=== PATIENT | female | born 1940 | race Caucasian/White ===

== ENCOUNTER 2017-08-11 10:53 | Outpatient (CLI) | payer MEDICARE, OTHER | END 2017-08-11 10:54 | disposition critical access hospital (66) | LOC: EMS 10:53 | PROVIDERS: ATTEND Surgery | DX: K62.5 Hemorrhage of anus and rectum (principal); R53.1 Weakness | CPT/HCPCS: A0425; A0427 ==

== ENCOUNTER 2017-08-11 11:08 | Emergency (ER) | payer MEDICARE, OTHER ==
[2017-08-11] MEDS ORDERED: SODIUM CHLORIDE 0.9% 1,000 ML IV ONE (11:18)
[2017-08-11] MEDS ORDERED: PANTOPRAZOLE 40 MG VIAL IVP STA (11:18)
[2017-08-11 11:48] LABS: BASOPHILS % (AUTO) 0.2 %; EOSINOPHILS % (AUTO) 0.1 %; LYMPHOCYTES # (AUTO) 0.7 10^3/uL (1.5-3.5); LYMPHOCYTES % (AUTO) 9.2 %; MEAN CORPUSCULAR HEMOGLOBIN 15.8 pg (27.0-31.0); MEAN CORPUSCULAR VOLUME 58.5 fL (81.0-99.0); MEAN PLATELET VOLUME 7.2 fL (7.9-10.8); MONOCYTES # (AUTO) 0.6 10^3/uL (0.0-1.0); MONOCYTES % (AUTO) 7.4 %; NEUTROPHILS # (AUTO) 6.5 10^3/uL (1.5-6.6); NEUTROPHILS % (AUTO) 83.1 %; PLT - PLATELET COUNT 548 10^3/uL (130-450); RED BLOOD COUNT 2.11 10^6/uL (4.20-5.40); RED CELL DISTRIBUTION WIDTH 18.4 % (12.0-15.0); WHITE BLOOD COUNT 7.9 x10^3/uL (4.8-10.8)
[2017-08-11 11:56] LABS: ALBUMIN 2.6 g/dL (3.2-5.5); ALBUMIN/GLOBULIN RATIO 0.9 (1.0-2.2); BILIRUBIN,TOTAL 0.7 mg/dL (0.2-1.0); CALCIUM 7.6 mg/dL (8.5-10.3); INR 1.4 (0.8-1.2); PT - PROTHROMBIN TIME 15.5 secs (9.9-12.6); TOTAL PROTEIN 5.6 g/dL (6.7-8.2)
[2017-08-11 11:58] LABS: HGB - HEMOGLOBIN 3.3 g/dL (12.0-16.0)
--- NOTE | 2017-08-11 12:09 | ED Physician Documentation ---
PD HPI GI BLEED - Stated complaint Stated Complaint: SOA/ GI BLEED - Chief complaint Chief Complaint: Abd Pain - History obtained from History obtained from: Patient, Family, EMS - History of Present Illness Timing - onset: How many days ago (3) Timing - duration: Days (3) Timing - details: Gradual onset, Still present Associated symptoms: Maroon stool Contributing factors: Aspirin use Improved by: Other (nothing) Similar symptoms before: Diagnosis (hemmorrhoids) Recently seen: Not recently seen - Additional information Additional information: 77-year-old female who avoids medical care at all times has developed Rectal bleeding. This bleeding has been present for about 3 years. She has had a mass in her rectum that has been bleeding and she has called this her hemorrhoids. She indicates that she has not been able to sit in a chair for about 4 years and that her family indicates she does not leave the house. She has not sought medical attention. She took some baby aspirin over the last 3 days and bleeding has dramatically increased. Last night she collapsed in her home and this morning her daughter has called the ambulance. Review of Systems Constitutional: reports: Fatigue. denies: Fever Eyes: denies: Decreased vision Ears: denies: Ear pain Nose: denies: Congestion Throat: denies: Sore throat Cardiac: denies: Chest pain / pressure, Palpitations Respiratory: reports: Dyspnea (exertional and progressive) GI: reports: Bloody / black stool. denies: Abdominal Pain, Nausea, Vomiting : denies: Dysuria, Frequency Skin: denies: Rash Musculoskeletal: denies: Neck pain, Back pain, Extremity swelling Neurologic: reports: Generalized weakness. denies: Focal weakness, Numbness PD PAST MEDICAL HISTORY - Past Medical History Past Medical History: Yes GI: Hemorrhoids Other Past Medical History: shingles with ongoing nerve left side under breast going around to back. - Past Surgical History Past Surgical History: No - Present Medications Home Medications: Ambulatory Orders Medication Instructions Recorded Confirmed No Known Home Medications [No 08/11/17 08/11/17 Known Home Medications] - Allergies Allergies/Adverse Reactions: Allergies Allergy/AdvReac Type Severity Reaction Status Date / Time No Known Drug Allergies Allergy Verified 08/11/17 11:18 - Social History Does the pt smoke?: No Smoking Status: Never smoker PD ED PE NORMAL - Vitals Vital signs reviewed: Yes (tachy and hypotensive) - General General: Well developed/nourished, Other (pale 77 y/o female with her eyes closed does answer questions appropriately ) - HEENT HEENT: Atraumatic, PERRL, EOMI, Other (pale sclera) - Neck Neck: Supple, no meningeal sign, No bony TTP - Cardiac Cardiac: Other (tachy with a loud second sound. ) - Respiratory Respiratory: No respiratory distress, Clear bilaterally - Abdomen Abdomen: Soft, Non tender - Rectal Rectal: Other (There is a large fungating bleeding mass protruding from the rectum. ) - Back Back: No CVA TTP, No spinal TTP - Derm Derm: Warm and dry, No rash, Other (pale ) - Extremities Extremities: No deformity, No edema - Neuro Neuro: Alert and oriented X 3, grab hooker 2-12 intact, No motor deficit, No sensory deficit, Normal speech Eye Opening: Spontaneous Motor: Obeys Commands Verbal: Oriented GCS Score: 15 - Psych Psych: Normal mood, Normal affect Results - Vitals Vitals: Vital Signs - 24 hr 08/11/17 08/11/17 08/11/17 11:10 11:34 12:06 Temperature 36.6 C Heart Rate 103 H 97 96 Respiratory 16 21 19 Rate Blood Pressure 111/53 L 105/49 L 108/51 L O2 Saturation 100 100 99 08/11/17 08/11/17 08/11/17 13:15 13:56 14:02 Temperature 36.9 C 37.0 C Heart Rate 92 101 H 97 Respiratory 16 20 18 Rate Blood Pressure 103/68 98/67 104/49 L O2 Saturation 100 08/11/17 08/11/17 08/11/17 16:09 16:23 16:34 Temperature 37.1 C 37.2 C Heart Rate 86 91 90 Respiratory 19 20 18 Rate Blood Pressure 113/52 L 115/75 113/56 L O2 Saturation 100 08/11/17 16:35 Temperature 37.3 C Heart Rate 90 Respiratory 16 Rate Blood Pressure 113/56 L O2 Saturation Oxygen O2 Source Nasal cannula - EKG (time done) 1113 Rate: Rate (enter#) (103) Rhythm: Sinus tachycardia Intervals: Prolonged QT Ischemia: ST depression Compare to prior EKG: Old EKG unavailable Computer interpretation: Agree with computer - Labs Labs: Laboratory Tests 08/11/17 08/11/17 08/11/17 11:32 11:32 11:32 WBC 7.9 RBC 2.11 L Hgb 3.3 L* Hct 12.3 L* MCV 58.5 L MCH 15.8 L MCHC 27.0 L RDW 18.4 H Plt Count 548 H MPV 7.2 L Neut # 6.5 Lymph # 0.7 L Colquitt # 0.6 Eos # 0.0 Baso # 0.0 Absolute Nucleated RBC 0.37 Nucleated RBC % 4.6 Manual Slide Review Indicated WBC Morphology Platelet Estimate INCREASED (>450,000) Platelet Morphology NORMAL APPEARANCE RBC Morph Micro Appear 2+ OVALOCYTES PT 15.5 H INR 1.4 H APTT 25.5 Sodium 138 Potassium 3.9 Chloride 109 Carbon Dioxide 14 L Anion Gap 15.0 H BUN 26 H Creatinine 1.0 Estimated GFR (MDRD) 53 L Glucose 134 H Calcium 7.6 L Total Bilirubin 0.7 AST 41 ALT 20 Alkaline Phosphatase 49 Troponin I Total Protein 5.6 L Albumin 2.6 L Globulin 3.0 Albumin/Globulin Ratio 0.9 L Lipase 20 L Slides for Path Review Indicated Blood Type Blood Type Recheck Antibody Screen Crossmatch IS Only 08/11/17 08/11/17 08/11/17 11:32 11:32 11:56 WBC RBC Hgb Hct MCV MCH MCHC RDW Plt Count MPV Neut # Lymph # Colquitt # Eos # Baso # Absolute Nucleated RBC Nucleated RBC % Manual Slide Review WBC Morphology Platelet Estimate Platelet Morphology RBC Morph Micro Appear PT INR APTT Sodium Potassium Chloride Carbon Dioxide Anion Gap BUN Creatinine Estimated GFR (MDRD) Glucose Calcium Total Bilirubin AST ALT Alkaline Phosphatase Troponin I 2.97 H* Total Protein Albumin Globulin Albumin/Globulin Ratio Lipase Slides for Path Review Blood Type O POSITIVE Blood Type Recheck O POSITIVE Antibody Screen NEGATIVE Crossmatch IS Only See Detail Procedures - IVC sono (time) 1620 Bedside IVC sono: IVC measures (cm) (2.40), IVC collapsed c insp (cm) (2.14), Collapsibility index (0.108), High CVP, Fluid overload PD MEDICAL DECISION MAKING - ED course Complexity details: reviewed old records, reviewed results, re-evaluated patient , considered differential, d/w patient, d/w family ED course: 77-year-old female with acute on chronic blood loss appears to have a profoundly low globin and hematocrit. She is tachycardic and pale appearing and has some acute blood loss.2 intravenous lines are begun she is given IV Protonix and 4 units of blood are ordered. She does appear to have a rectal carcinoma on examination and I have consulted our surgeon Dr. 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 He recommends transfer to Hospital where this could be achieved. The patient also has elevated troponin consistent with NSTEMI. The hospitalist at [facility] is consulted and graciously agrees to care for this patient in the hospital and requests we transfuse prior to transport. She is given her first unit of blood here and her color improves and she "perks up". Her IVC is interrogated and is plethoric and a bolton is placed and she is given a dose of IV lasix. I she will be hemodynamically stable for transport and we will transport with the second unit running. Departure - Departure Disposition: 02 Transfer Acute Care Hosp Clinical Impression: Non-STEMI (non-ST elevated myocardial infarction), Rectal carcinoma GI bleeding Qualifiers: GI bleed type/associated pathology: anorectal hemorrhage Qualified Code(s): K62.5 - Hemorrhage of anus and rectum Profound anemia Qualifiers: Anemia type: iron deficiency Iron deficiency anemia type: chronic blood loss Qualified Code(s): D50.0 - Iron deficiency anemia secondary to blood loss ( chronic) Condition: Serious
[2017-08-11 12:17] LABS: PLATELET ESTIMATE, MANUAL INCREASED (>450,000) (NORMAL); PLATELET MORPHOLOGY NORMAL APPEARANCE (NORMAL)
[2017-08-11] MEDS ORDERED: FUROSEMIDE 20 MG/2 ML VIAL IVP STA (16:23)
[2017-08-11 16:51] VITALS: BP 117/62
[2017-08-11 17:22] LABS: CLARITY,URINE CLEAR (CLEAR); LEUKOCYTE ESTERASE, URINE NEGATIVE (NEGATIVE); NITRITE,URINE NEGATIVE (NEGATIVE); UROBILINOGEN,URINE 0.2 (NORMAL) E.U./dL (NORMAL)
[2017-08-11 17:23] LABS: BILIRUBIN,URINE NEGATIVE (NEGATIVE); GLUCOSE, URINE (UA) NEGATIVE (NEGATIVE); KETONES,URINE (UA) NEGATIVE (NEGATIVE); OCCULT BLOOD,URINE NEGATIVE (NEGATIVE); PROTEIN,URINE NEGATIVE (NEGATIVE)
== END 2017-08-11 16:54 | disposition short-term general hospital (02) ==
LOC: ED 11:08
DX: I21.4 Non-ST elevation (NSTEMI) myocardial infarction (principal); C20 Malignant neoplasm of rectum; K62.5 Hemorrhage of anus and rectum; D50.0 Iron deficiency anemia secondary to blood loss (chronic)
CPT/HCPCS: 36415; 36430; 51702; 80053; 81003; 83690; 84484; 85025; 85610; 85730; 86850; 86900; 86901; 86920; 93005; 96361; 96374; 96375; 99284; 99285; P9016; 81001; 87086

== ENCOUNTER 2017-08-11 16:57 | Outpatient (CLI) | payer MEDICARE, OTHER | END 2017-08-11 16:58 | disposition short-term general hospital (02) | LOC: EMS 16:57 | PROVIDERS: ATTEND Surgery | DX: K62.5 Hemorrhage of anus and rectum (principal); D64.9 Anemia, unspecified; I21.4 Non-ST elevation (NSTEMI) myocardial infarction | CPT/HCPCS: A0425; A0426 ==

== ENCOUNTER 2017-08-24 11:00 | Outpatient (CLI) | payer MEDICARE, OTHER ==
--- NOTE | 2017-08-24 17:04 | CONSULTATION NOTE ---
Palliative Care Consultation - Referral Referring Provider: Dr. Ryanne Jara Time of Visit: [id number] Referral setting: Home Referral Reason: Rectal Cancer with mets bilateral inguinal lymph nodes - Information Sources Records reviewed: Previous records reviewed History/Review of Systems obtained from: Patient, Family (daughter Amy at visit) Exam limitations: No limitations - History of Present Illness Brief History of Present Illness: This is a interesting 77-year-old woman who is able to say retrospectively "how did I let this go on". She has been having rectal bleeding for over 3 years, she did attribute this to "hemorrhoids". She does present though with a large fungating Rectal mass that encompasses the full perimeter of the anus and extends into the perineum. She has been having increased weakness and fatigue increased shortness of breath, until she finally presented acutely and her family called 911, when she was in the hospital at the ER her crit was found to be 12.3 and hemoglobin 3.3. Because of the necrotic nature and rectal bleeding she was sent to [facility]. 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 She did receive a colostomy, she does have a fistula that is draining a serous drainage to the left of her colostomy. She is to start radiation/oral chemotherapy in the next week. Currently she reports she does not have any residual pain, though she is unable to sit or tolerate being upright and putting pressure on this. The family has made arrangements for her to go to [facility], where she will rent a large studio which is just a few blocks away from the hospital, to get the support she needs for radiation treatment. She will have [employer], as well as a volunteer that can take up to 3 blocks to her appointments. She does have long-term healthcare insurance, she is quite deconditioned given that she has been mostly housebound for the last several years and her ongoing decline functionally.She is able to walk short distances in her home, she does use a cane, concern for balance and falls though. Actually amazingly her symptom burden at this point is fairly low, I suspect it will increase as she has toxicities from her treatment. She is still having drainage in her rectal area with some intermittent clots but does not appear bloody mostly mucousy and origin. She did used to be about 210 pounds, she did lose about 60 pounds at the time of the of her which was around 2011, she reports her weight currently is 141 and her appetite has returned. She is getting adequate food and fluids. She continues to be somewhat hesitant as far as being immersed in the information regarding her treatment and cancer, her daughter Amy is a, and has been helping her navigate the medical system as well as interpret him the information. She does not perceive herself as depressed though does present as anxious and reports it is "a lot of scary". Medical/Surgical History - Past Medical History Cardiovascular: reports: SD (nstemi) Respiratory: reports: None Neuro: reports: None Endocrine/Autoimmune: reports: None GI: reports: Hemorrhoids, Other (rectal cancer) DOFFER: reports: None (colostomy in left upper quadrant), Other : reports: Incontinence HEENT: reports: Chronic vision loss Psych: reports: Depression Musculoskeletal: reports: Fatigue Derm: reports: Other (shingle left side; phn) MRSA Hx?: No - Past Surgical History General: reports: Colonoscopy, Other (biopsy inguinal node) - Substance History Use: Uses substance without health or social issues: NONE Social History - Living Situation Living arrangement: At home Living Situation: Alone ( since 2014; caregiver for with [facility] 2004 -2014) Support System: Daughter Amy Paris is an MA and works with Dr. Jara, she is present for the visit. Patient has started with Delphine DUTTON RN, PT to admit tomorrow, will be able to follow her to new setting [facility] assisted living. Family History - Family History Family History: Mother: , Father: Family History Comment/Other: no other cancer dx in family Medications/Allergies - Medications Home Medications: Ambulatory Orders Medication Instructions Recorded Confirmed Atorvastatin Calcium [Atorvastatin 40 mg PO ACHS 08/24/17 08/24/17 Calcium] HYDROcod/ACETAM 5/325 [[place] 5/325] 0.5 - 1 tab PO Q4HR PRN 08/24/17 08/24/17 Metoprolol Tartrate [Metoprolol 12.5 mg PO BID 08/24/17 08/24/17 Tartrate] Multivitamin [Multiple Vitamins] 1 tab PO DAILY 08/24/17 08/24/17 Ondansetron HCl [Zofran] 1 tab PO Q4HR PRN 08/24/17 08/24/17 - Allergies Allergies/Adverse Reactions: Allergies Allergy/AdvReac Type Severity Reaction Status Date / Time No Known Drug Allergies Allergy Verified 08/11/17 11:18 Review of Systems - Constitutional Constitutional: reports: Fatigue, Weight loss (141; weight loss of 60 pounds when ; current weight this last year) - Eyes Eyes: reports: Vision loss, Corrective lenses - Ears, Nose & Throat Ears, Nose & Throat: denies: Hearing loss - Cardiovascular Cardiovascular: reports: Decr. exercise tolerance - Respiratory Respiratory: reports: SOB with exertion - Gastrointestinal Gastrointestinal: reports: Rectal bleeding (serosanginous; occasional clots; using pads), Good appetite, Other (new colostomy). denies: Nausea - Genitourinary Genitourinary: reports: Incontinence (improved) - Musculoskeletal Musculoskeletal: reports: Muscle weakness, Assistive devices (uses cane) - Integumentary Integumentary: reports: Dryness - Neurological Neurological: reports: General weakness - Psychiatric Psychiatric: reports: Depression - Endocrine Endocrine: denies: Diabetes type 2, Hypothyroidism - Hematologic/Lymphatic Hematologic/Lymphatic: reports: Anemia (due for draw Tuesday;) - All Other Systems All Other Systems: reports: Reviewed and negative Physical Exam - Vital Signs Temperature: 98.9 C Pulse Rate: 88 Respiratory Rate: 18 O2 Saturation: 99 (ra @ rest) Blood Pressure: 112/58 - Physical Exam General Appearance: positive: No acute distress, Anxious Eyes Bilateral: positive: Normal inspection ENT: positive: No signs of dehydration Neck: positive: No JVD, Trachea midline Cardiovascular: positive: Regular rate & rhythm Respiratory: positive: Diminished in bases (clear) Abdomen: positive: Nml bowel sounds, Tenderness (left upper quadrant; colostomy intact with soft brown stool), Other (abd firm' fistula left upper quadrant draining yellow drainage) Skin: positive: Pallor (slightly sallow color), Other (large cauliflower dull pink mass arising from anal area; about size of small banana; draining serosangious drainage into pad; few clots;) Extremities: positive: No pedal edema Neurologic/Psychiatric: positive: Oriented x3, Weakness Palliative Care - POLST Patient has POLST: No Pain: Pain unchanged, Comment (Patient denies pain, though is unable to sit upright on her rectal mass. She has used some intermittent acetaminophen after surgery, she is expecting some increased discomfort with side effects of radiation. She is opioid lashell, and hesitant to take any signs of medications.) Tiredness/Fatigue: Moderate (4-6) Drowsiness/Sedation: None Nausea: None Depression: Mild (1-3) Anxiety: Moderate (4-6) (Patient appears quite anxious in her behaviors, denies any significant "worries".) Dyspnea: Mild (1-3) Anorexia: None Sleep: Sleeps well Constipation: No Performance Status: Patient is deconditioned over time, she has been mostly couch bound, with increasing weakness. She is looking forward to being a little bit more active, working with physical therapy, is currently able to meet her ADLs. - Palliative Care Discussion: Patient able to reflect some on her avoidance of physicians, at this point in time unable to explain her rationality regarding her decisions, but does admit to letting this goes along as "stupid". She is looking forward to getting on with her treatment, she is quite anxious, she still remains quite reluctant to have a significant amount of information, and defers to her daughter for managing this. This would be fairly consistent in her approach to her health. She does of course wonder as far as her prognosis in the future, but at this point in time is wanting to go full court press including considering augmenting with Vitamin C therapy. In identifying whether she has her advanced directives in place, she does have a document that puts her son Emory Weir has primary DPOAE, and Amy Paris [phone] as secondary, we did discuss in the context of Amy's involvement might make sense for her to be primary. She does want to be able to default to either one. I did provide her a DPOA form and she can designate this how she would like that to happen. She does have a healthcare directive, she reports she had filled out with her lining ironer many questions about the future and whether she would want all kinds of decisions made, she reports that was really a difficult form to fill out and she found it not helpful. I did introduce the [facility], in the context the patient's current understanding of her disease process, just starting therapies, at this point in time she is choosing to be a FULL CODE. I suspect in the context of her past decision-making regarding accessing medical care, that this is a difficult conversation and also may need further education and support to make future decisions in this area. She feels her daughter would make appropriate decisions if needed as she does not want "heroic measures". Her current goals are to focus on her treatment regimen, learning how to deal with her colostomy, and find a workable living situation to support her in this next phase of dealing with her new cancer diagnosis. Counseling regarding palliative care suport for symptom management, and concurrent support during treatment, can revisit advanced directives as appropriate. Impression and Recommendations - Palliative Care Impression: This is an anxious 77-year-old woman with an unfortunate diagnosis of rectal adenocarcinoma with metastases to her inguinal node. She is currently planning to receive chemo radiation to control her disease, she presents also with new colostomy, and actually fairly low symptom burden. Palliative care has been introduced as support for symptom management and psychosocial support in the context of a new diagnosis. Recommendations/Counseling Done: 1. Pain of neoplastic origin. Currently patient is not needing any medication , she has used intermittent acetaminophen for acute surgical pain with good relief. Counseling regarding continued to initiate pain control with acetaminophen, but did provide prescription though of hydrocodone 5 mg/325 mg 1/ 2-1 tab as needed for increased pain or discomfort related to side effects of her radiation. 2. Rectal cancer with metastatic disease to inguinal nodes. She does have a fairly high symptom burden, is receiving palliative treatment, this is a fairly prolonged treatment course. Will follow along for toxicities as needed for support, though she is living in [place], she is planning to return to this area intermittently in between. Have a establish rapport, and am available as needed for support. 3. Advanced care planning. Counseling regarding the need to define DPO a, patient quite overwhelmed with new diagnosis, and anxious given her history and concern with interactions with the healthcare system. Introduction of the continuum of care, will continue to follow and provide support as needed and clarifying further goals of care. Time Spent: Time spent 75 minutes with greater than 50% of this done in counseling for anticipatory guidance, establishing rapport, introduction of advanced directives , [place] as needed for support as indicated or requested
== END 2017-08-24 11:01 | disposition home or self-care (01) ==
LOC: PC 11:00
PROVIDERS: ATTEND Nurse Practitioner Adult Health
DX: Z51.5 Encounter for palliative care (principal); G89.3 Neoplasm related pain (acute) (chronic); C20 Malignant neoplasm of rectum; C77.4 Secondary and unspecified malignant neoplasm of inguinal and lower limb lymph nodes; Z93.3 Colostomy status; K63.2 Fistula of intestine; Z79.891 Long term (current) use of opiate analgesic; R06.09 Other forms of dyspnea; K62.5 Hemorrhage of anus and rectum; M62.81 Muscle weakness (generalized); F32.9 Major depressive disorder, single episode, unspecified; F41.9 Anxiety disorder, unspecified
CPT/HCPCS: 99345

== ENCOUNTER 2019-08-02 11:11 | Outpatient (CLI) | payer MEDICARE, OTHER ==
--- NOTE | 2019-08-02 14:34 | XRAY Report ---
Reason: RIGHT KNEE PAIN Procedure Date: 08/02/2019 Accession Number: [id number] / [id number] Procedure: WCP - Knee 3 View RT CPT Code: Final Report FULL RESULT: EXAM: RIGHT KNEE RADIOGRAPHY EXAM DATE: 08/02/2019 11:11 AM. CLINICAL HISTORY: RIGHT KNEE PAIN. COMPARISON: None. TECHNIQUE: 3 views. FINDINGS: Bones: Diffuse demineralization. No definite fracture or bone lesions. Joints: Mild degenerative changes predominantly involving the medial and patellofemoral compartments with narrowing, endplate sclerosis and osteophytic formation. No signific and joint effusion. Soft Tissues: Mild and Tesio plastic changes at the insertion of the patella. IMPRESSION: 1. Demineralization. No fracture or bone lesions. 2. Mild degenerative changes. RADIA
== END 2019-08-02 23:59 | disposition home or self-care (01) ==
LOC: DI.WCP 11:11
PROVIDERS: ATTEND Family Medicine
DX: M17.11 Unilateral primary osteoarthritis, right knee (principal); M81.0 Age-related osteoporosis without current pathological fracture

== ENCOUNTER 2019-10-15 11:00 | Outpatient (CLI) | payer MEDICARE, OTHER ==
[2019-10-15 11:57] LABS: EOSINOPHILS # (AUTO) 0.2 10^3/uL (0.0-0.7); EOSINOPHILS % (AUTO) 4.6 %; HGB - HEMOGLOBIN 12.5 g/dL (12.0-16.0); LYMPHOCYTES # (AUTO) 1.2 10^3/uL (1.5-3.5); LYMPHOCYTES % (AUTO) 29.8 %; MEAN CORPUSCULAR HEMOGLOBIN 29.2 pg (27.0-31.0); MEAN CORPUSCULAR HGB CONC 31.2 g/dL (32.0-36.0); MEAN CORPUSCULAR VOLUME 93.7 fL (81.0-99.0); MEAN PLATELET VOLUME 9.3 fL (7.9-10.8); MONOCYTES # (AUTO) 0.4 10^3/uL (0.0-1.0); MONOCYTES % (AUTO) 9.5 %; NEUTROPHILS # (AUTO) 2.2 10^3/uL (1.5-6.6); NEUTROPHILS % (AUTO) 54.6 %; PLT - PLATELET COUNT 343 10^3/uL (130-450); RED BLOOD COUNT 4.28 10^6/uL (4.20-5.40); RED CELL DISTRIBUTION WIDTH 16.8 % (12.0-15.0); WHITE BLOOD COUNT 4.1 x10^3/uL (4.8-10.8)
[2019-10-15 12:11] LABS: ALBUMIN 3.9 g/dL (3.2-5.5); BILIRUBIN,TOTAL 0.8 mg/dL (0.2-1.0); CALCIUM 9.2 mg/dL (8.5-10.3); CREATININE 0.7 mg/dL (0.4-1.0); TOTAL PROTEIN 7.7 g/dL (6.7-8.2)
== END 2019-10-15 23:59 | disposition home or self-care (01) ==
LOC: LAB.R 11:00
PROVIDERS: ATTEND Internal Medicine Hematology & Oncology
DX: C18.9 Malignant neoplasm of colon, unspecified (principal)
CPT/HCPCS: 80053; 82378; 85025

== ENCOUNTER 2022-02-19 10:54 | Outpatient (CLI) | payer MEDICARE, OTHER ==
--- NOTE | 2022-02-19 13:40 | Ultrasound Report ---
PROCEDURE: Head or Neck Soft Tissue INDICATIONS: NECK MASS TECHNIQUE: Real time scanning was performed of the neck region of interest, with image documentation . COMPARISON: None. FINDINGS: The thyroid isthmus measures 0.3 cm. The right gland measures 1.2 x 1.1 x 4.6 cm. The left gland measures 1.2 x 0.8 x 3.8 cm. No discrete, actionable thyroid nodule. The gland is mildly heterogeneous. Evaluation of the neck and sternoclavicular/supraclavicular regions shows no discrete mass. A right p ortacatheter is in place. IMPRESSION: No actionable thyroid nodules. 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 No discrete neck, sternoclavicular, or supraclavicular mass. Reviewed by: Bryon Silverman MD on 02/19/2022 1:38 PM PDT Approved by: Bryon Silverman MD on 02/19/2022 1:38 PM PDT Station ID: [id number]
== END 2022-02-19 10:55 | disposition home or self-care (01) ==
LOC: DI 10:54
PROVIDERS: ATTEND Nurse Practitioner Family
DX: R22.1 Localized swelling, mass and lump, neck (principal)

== ENCOUNTER 2022-03-30 06:31 | Outpatient (CLI) | payer MEDICARE, OTHER | END 2022-03-30 06:32 | disposition critical access hospital (66) | LOC: EMS 06:31 | DX: R53.1 Weakness (principal); R63.8 Other symptoms and signs concerning food and fluid intake; R06.02 Shortness of breath; R42 Dizziness and giddiness | CPT/HCPCS: A0425; A0427 ==

== ENCOUNTER 2022-03-30 06:49 | Inpatient (IN) | payer MEDICARE, OTHER ==
--- NOTE | 2022-03-30 07:07 | ED Physician Documentation ---
PD HPI DYSPNEA - Stated complaint Stated Complaint: SOA - Chief complaint Chief Complaint: Resp - History obtained from History obtained from: Patient - History of Present Illness Timing - onset: How many weeks ago (1) Timing - onset during: Light activity Timing - duration: Weeks (She describes a week of progressive general fatigue and dyspnea with activity. General malaise and "no appetite". Some mild nausea with eating at times but generally just not wanting to eat. No abdominal pain with this. Denies upper respiratory symptoms of sore throat or cough. No fevers.) Timing - details: Gradual onset Inciting event(s): Other (She states she had similar symptoms after exposure to several latex balloons at a green party for her daughter in December. Symptoms lasted several days and then improved. She states this feels similar but did not have known latex exposure. She had read there is some latex in foods and considers this.). No: URI Improved by: Rest. No: Sitting up Worsened by: Exertion. No: Laying flat Associated symptoms: No: Fever, Cough, Wheezing, Palpitations, Bilateral edema Similar symptoms before: Diagnosis (latex exposure in December had similar symptoms.) Recently seen: Clinic (Oncology a month ago. Was due to see Oncology today for chemo but cancelled due to fatigue.) Review of Systems Constitutional: reports: Fatigue. denies: Fever, Chills Nose: denies: Rhinorrhea / runny nose, Congestion Throat: denies: Sore throat Cardiac: denies: Chest pain / pressure, Palpitations, Pedal edema, Calf pain Respiratory: reports: Dyspnea. denies: Cough, Wheezing GI: reports: Nausea, Diarrhea (soft stools ongoing since her colorectal surgery.), Other (markedly decreased appetite the past week.). denies: Abdominal Pain, Vomiting : denies: Dysuria, Frequency (less urine output the past few days due to dehydration, per patient.) Neurologic: reports: Generalized weakness. 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 ), Colonoscopy, Other - Present Medications Home Medications: Ambulatory Orders Medication Instructions Recorded Confirmed Multivitamin [Multiple Vitamins] 1 tab PO DAILY 08/24/17 03/30/22 Capecitabine [Xeloda] 1,000 mg PO UD 03/30/22 03/30/22 Lisinopril [Zestril] 5 mg PO QPM 03/30/22 03/30/22 Lisinopril [Zestril] 10 mg PO DAILY 03/30/22 03/30/22 - Allergies Allergies/Adverse Reactions: Allergies Allergy/AdvReac Type Severity Reaction Status Date / Time latex Allergy Unknown Verified 03/30/22 06:54 - Social History Does the pt smoke?: No Smoking Status: Never smoker Does the pt drink ETOH?: No Does the pt have substance abuse?: No - Immunizations Immunizations are current?: Yes - POLST Patient has POLST: No PD ED PE NORMAL - Vitals Vital signs reviewed: Yes - General General: Alert and oriented X 3, No acute distress, Well developed/nourished - HEENT HEENT: PERRL, Pharynx benign. No: Moist mucous membranes - Neck Neck: Supple, no meningeal sign, No adenopathy, No JVD - Cardiac Cardiac: RRR (sinus but tachycardic), No murmur - Respiratory Respiratory: No respiratory distress, Clear bilaterally - Abdomen Abdomen: Normal bowel sounds, Soft, Non tender, Non distended - Female Female : Deferred - Rectal Rectal: Deferred - Back Back: No CVA TTP - Derm Derm: Warm and dry. No: Normal color (mild pallor) - Extremities Extremities: Normal ROM s pain - Neuro Neuro: Alert and oriented X 3, No motor deficit, No sensory deficit, Normal speech Results - Vitals Vitals: Vital Signs - 24 hr 03/30/22 03/30/22 03/30/22 06:55 08:58 10:00 Temperature 36.6 C Heart Rate 115 H 81 82 Respiratory 18 16 14 Rate Blood Pressure 108/62 108/94 H 140/58 H O2 Saturation 96 100 94 Oxygen O2 Source Room air - Labs Labs: Laboratory Tests 03/30/22 03/30/22 03/30/22 07:35 07:35 07:35 WBC 8.1 RBC 3.48 L Hgb 11.3 L Hct 34.1 L MCV 98.0 MCH 32.5 H MCHC 33.1 RDW 17.4 H Plt Count 377 MPV 8.8 Neut # (Auto) 6.9 H Lymph # (Auto) 0.6 L [place] # (Auto) 0.5 Eos # (Auto) 0.0 Baso # (Auto) 0.0 Absolute Nucleated RBC 0.00 Nucleated RBC % 0.0 PT INR Sodium 139 Potassium 5.1 H Chloride 111 Carbon Dioxide 11 L* Anion Gap 17.0 H BUN 87 H* Creatinine 4.4 H Estimated GFR (MDRD) 10 L Glucose 116 H Calcium 9.3 Magnesium 2.0 Total Bilirubin 0.9 AST 12 ALT 11 Alkaline Phosphatase 62 Troponin I High Sens B-Natriuretic Peptide 20 Total Protein 7.9 Albumin 4.1 Globulin 3.8 Albumin/Globulin Ratio 1.1 Lipase 45 TSH Nasal Adenovirus (PCR) Nasal B. parapertussis DNA (PCR) Nasal Coronavir 229E PCR Nasal Coronavir HKU1 PCR Nasal Coronavir NL63 PCR Nasal Coronavir OC43 PCR Nasal Enterovir/Rhinovir PCR Nasal Influenza B PCR Nasal Influenza A PCR Nasal Parainfluen 1 PCR Nasal Parainfluen 2 PCR Nasal Parainfluen 3 PCR Nasal Parainfluen 4 PCR Nasal RSV (PCR) Nasal B.pertussis DNA PCR Nasal C.pneumoniae (PCR) Tank Human Metapneumo PCR Nasal M.pneumoniae (PCR) Nasal SARS-CoV-2 (PCR) 03/30/22 03/30/22 03/30/22 07:35 07:35 07:35 WBC RBC Hgb Hct MCV MCH MCHC RDW Plt Count MPV Neut # (Auto) Lymph # (Auto) [place] # (Auto) Eos # (Auto) Baso # (Auto) Absolute Nucleated RBC Nucleated RBC % PT 12.0 INR 1.1 Sodium Potassium Chloride Carbon Dioxide Anion Gap BUN Creatinine Estimated GFR (MDRD) Glucose Calcium Magnesium Total Bilirubin AST ALT Alkaline Phosphatase Troponin I High Sens 28.2 H* B-Natriuretic Peptide Total Protein Albumin Globulin Albumin/Globulin Ratio Lipase TSH 2.10 Nasal Adenovirus (PCR) Nasal B. parapertussis DNA (PCR) Nasal Coronavir 229E PCR Nasal Coronavir HKU1 PCR Nasal Coronavir NL63 PCR Nasal Coronavir OC43 PCR Nasal Enterovir/Rhinovir PCR Nasal Influenza B PCR Nasal Influenza A PCR Nasal Parainfluen 1 PCR Nasal Parainfluen 2 PCR Nasal Parainfluen 3 PCR Nasal Parainfluen 4 PCR Nasal RSV (PCR) Nasal B.pertussis DNA PCR Nasal C.pneumoniae (PCR) Tank Human Metapneumo PCR Nasal M.pneumoniae (PCR) Nasal SARS-CoV-2 (PCR) 03/30/22 03/30/22 07:37 09:41 WBC RBC Hgb Hct MCV MCH MCHC RDW Plt Count MPV Neut # (Auto) Lymph # (Auto) [place] # (Auto) Eos # (Auto) Baso # (Auto) Absolute Nucleated RBC Nucleated RBC % PT INR Sodium 139 Potassium 5.2 H Chloride 113 H Carbon Dioxide 11 L* Anion Gap 15.0 H BUN 94 H* Creatinine 3.8 H Estimated GFR (MDRD) 11 L Glucose 102 H Calcium 8.8 Magnesium Total Bilirubin AST ALT Alkaline Phosphatase Troponin I High Sens B-Natriuretic Peptide Total Protein Albumin Globulin Albumin/Globulin Ratio Lipase TSH Nasal Adenovirus (PCR) NOT DETECTED Nasal B. parapertussis DNA (PCR) NOT DETECTED Nasal Coronavir 229E PCR NOT DETECTED Nasal Coronavir HKU1 PCR NOT DETECTED Nasal Coronavir NL63 PCR NOT DETECTED Nasal Coronavir OC43 PCR NOT DETECTED Nasal Enterovir/Rhinovir PCR NOT DETECTED Nasal Influenza B PCR NOT DETECTED Nasal Influenza A PCR NOT DETECTED Nasal Parainfluen 1 PCR NOT DETECTED Nasal Parainfluen 2 PCR NOT DETECTED Nasal Parainfluen 3 PCR NOT DETECTED Nasal Parainfluen 4 PCR NOT DETECTED Nasal RSV (PCR) NOT DETECTED Nasal B.pertussis DNA PCR NOT DETECTED Nasal C.pneumoniae (PCR) NOT DETECTED Tank Human Metapneumo PCR NOT DETECTED Nasal M.pneumoniae (PCR) NOT DETECTED Nasal SARS-CoV-2 (PCR) NOT DETECTED PD MEDICAL DECISION MAKING - ED course Complexity details: reviewed results (will get labs and resp PCR. Patient declined CXR, not wanting the radiation exposure. Eval for heart/lung processes.), re-evaluated patient (given IV fluids with assumption dehydration and prerenal PENNY. Bladder scanner showed no urine in bladder c/w her surgical changes of colorectal CA removal. ), considered differential (Patient believes she may be having a latex allergy to 2 latex proteins present in certain foods such as melons. She eats very little of these. No other obvious latex exposure. No recent upper respiratory symptoms. No known heart or lung problems. She does seem likely dehydrated with less intake.), d/w patient, d/w network consultant (Oncology office reconciliation manager provider for [facility]. Recent Creatinine of 1.1. He states the chemo patient gets could be some renal toxic in setting of dehydration. recent Hgb 11.3, so not change from prior. ) Departure - Departure Disposition: 66 [facility] DC/Xfer Clinical Impression: Acute renal insufficiency, Dehydration Condition: Stable Discharge Date/Time: 03/30/22 11:13
[2022-03-30] MEDS ORDERED: SODIUM CHLORIDE 0.9% 1,000 ML IV STA ×2 (07:29→09:31)
[2022-03-30] MEDS ORDERED: FAMOTIDINE 20 MG/2 ML VIAL IVP STA (07:29)
[2022-03-30 07:49] LABS: BASOPHILS % (AUTO) 0.4 %; EOSINOPHILS % (AUTO) 0.1 %; HCT - HEMATOCRIT 34.1 % (37.0-47.0); HGB - HEMOGLOBIN 11.3 g/dL (12.0-16.0); LYMPHOCYTES # (AUTO) 0.6 10^3/uL (1.5-3.5); LYMPHOCYTES % (AUTO) 7.4 %; MEAN CORPUSCULAR HEMOGLOBIN 32.5 pg (27.0-31.0); MEAN CORPUSCULAR HGB CONC 33.1 g/dL (32.0-36.0); MEAN PLATELET VOLUME 8.8 fL (7.9-10.8); MONOCYTES # (AUTO) 0.5 10^3/uL (0.0-1.0); MONOCYTES % (AUTO) 6.3 %; NEUTROPHILS # (AUTO) 6.9 10^3/uL (1.5-6.6); NEUTROPHILS % (AUTO) 85.4 %; PLT - PLATELET COUNT 377 10^3/uL (130-450); RED BLOOD COUNT 3.48 10^6/uL (4.20-5.40); RED CELL DISTRIBUTION WIDTH 17.4 % (12.0-15.0); WHITE BLOOD COUNT 8.1 x10^3/uL (4.8-10.8)
[2022-03-30 08:39] LABS: B. PARAPERTUSSIS- RESP PCR PAN NOT DETECTED; B. PERTUSSIS- RESP PCR PANEL NOT DETECTED; C. PNEUMONIAE- RESP PCR PANEL NOT DETECTED; CORONAVIRUS 229E-RESP PCR NOT DETECTED; CORONAVIRUS HKU1-RESP PCR NOT DETECTED; CORONAVIRUS NL63-RESP PCR NOT DETECTED; CORONAVIRUS OC43-RESP PCR NOT DETECTED; HUMAN METAPNEUMOVIRUS NOT DETECTED; INFLUENZA A- RESP PCR PANEL NOT DETECTED; INFLUENZA B - RESP PCR PANEL NOT DETECTED; M. PNEUMONIAE- RESP PCR PANEL NOT DETECTED; PARAINFLUENZA VIRUS 1 NOT DETECTED; PARAINFLUENZA VIRUS 2 NOT DETECTED; PARAINFLUENZA VIRUS 3 NOT DETECTED; PARAINFLUENZA VIRUS 4 NOT DETECTED; RHINOVIRUS/ENTEROVIRUS NOT DETECTED; RSV- RESP PCR PANEL NOT DETECTED; SARS-CoV-2 -RESP PCR PANEL NOT DETECTED
[2022-03-30 08:57] LABS: POTASSIUM 5.1 mmol/L (3.5-5.0)
[2022-03-30 08:58] LABS: BILIRUBIN,TOTAL 0.9 mg/dL (0.2-1.0); CALCIUM 9.3 mg/dL (8.5-10.3); CREATININE 4.4 mg/dL (0.4-1.0); TOTAL PROTEIN 7.9 g/dL (6.7-8.2)
[2022-03-30 08:59] LABS: ALBUMIN 4.1 g/dL (3.2-5.5); ALBUMIN/GLOBULIN RATIO 1.1 (1.0-2.2)
[2022-03-30 10:34] LABS: CALCIUM 8.8 mg/dL (8.5-10.3); CREATININE 3.8 mg/dL (0.4-1.0); POTASSIUM 5.2 mmol/L (3.5-5.0)
[2022-03-30] MEDS ORDERED: ACETAMINOPHEN 325 MG TABLET PO PRN (10:38)
[2022-03-30] MEDS ORDERED: SODIUM CHLORIDE FLUSH 0.9% 10 ML SYRINGE IVP PRN (10:38)
[2022-03-30] MEDS ORDERED: ONDANSETRON 4 MG/2 ML VIAL IVP PRN (10:38)
--- NOTE | 2022-03-30 10:44 | HISTORY & PHYSICAL EXAMINATION ---
Chief Complaint - Chief Complaint Chief Complaint: Weak, malaise, poor apetite since Latex exposure History of Present Illness - Admitted From Admitted From:: ED - History Obtained From History obtained from: ED provider and the patient - History of Present Illness HPI Comment/Other: This is an 82-year-old white female with a history of colorectal cancer status post resection including part of her urinary bladder and she has a colostomy. She gets chemotherapy, which is planned lifelong through her Oncologist at [place], and chemo treatment is 2 weeks/month then 2 weeks/month of break. She has a "latex allergy" which causes her to get weakness, malaise, poor appetite, not anaphylaxis or rash. She has started to avoid latex protein in certain foods like cantaloupe, melon, figs, bananas, apples. Recently she did consume cantaloupe and the following day started to develop weakness and malaise, then had no appetite for days, and mild nausea but no vomiting or diarrhea, no fever. This has lasted for 7 days, despite her trying to sip Gatorade for example. She did take 1 week of Katlyn which helped her symptoms only minimally.She then got worsening weakness and mild shortness of breath and therefore presented to the ED today. Her labs showed significant creatinine elevation of 4.4 (usual creatinine is 1.1 from a month ago). The ED provider reached out to the Hospitalist team to admit this patient. for treating PENNY from dehydration. I spoke to her about CODE STATUS and she wishes to be a Full Code. History - Past Medical History Cardiovascular: reports: Murmur Respiratory: reports: None Neuro: reports: Peripheral neuropathy (Pain at colostomy site for 7 years) Endocrine/Autoimmune: reports: None GI: reports: Hemorrhoids, Other (colorectal CA) HIGHWAY ADMINISTRATIVE ENGINEER: reports: None : reports: Incontinence HEENT: reports: Chronic vision loss Psych: reports: Depression Musculoskeletal: reports: Fatigue MRSA Hx?: No - Past Surgical History General: reports: Bowel surgery (colorectal CA resected and part of bladder), Colonoscopy, Other (Colostomy) - Family & Social History Family History: Mother: , Father: Family History Comment/Other: Has 1 sister who is healthy. She has 4 half- brothers and one half sister. She has 2 adult children, a son and daughter, who are healthy. 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 She lives alone, ever since becoming a in 2015. She has caregivers. She does not drive, and she hardly ever leaves the house; she says she is a "hermit". She gets frozen food delivered to the house. She does not smoke and never did except tried it in college. She drinks 1-2 Kahla drinks per week, only during her off-chemo weeks. - Substance History Use: Uses substance without health or social issues: NONE - POLST Patient has POLST: No Meds/Allgy - Home Medications Home Medications: Ambulatory Orders Medication Instructions Recorded Confirmed Multivitamin [Multiple Vitamins] 1 tab PO DAILY 08/24/17 03/30/22 Capecitabine [Xeloda] 1,000 mg PO UD 03/30/22 03/30/22 Lisinopril [Zestril] 5 mg PO QPM 03/30/22 03/30/22 Lisinopril [Zestril] 10 mg PO DAILY 03/30/22 03/30/22 - Allergies Allergies/Adverse Reactions: Allergies Allergy/AdvReac Type Severity Reaction Status Date / Time latex Allergy Unknown Verified 03/30/22 06:54 Review of Systems - Constitutional Constitutional: reports: Fatigue, Weakness, Poor appetite, Weight loss - Cardiovascular Cariovascular: reports: Other (Knows of having a heart murmur, does not know which valve involved.) - Respiratory Respiratory: reports: SOB with exertion - Gastrointestinal Gastrointestinal: reports: Other (Does her own colostomy care) - Neurological Neurological: reports: Other (Chronic pain at the colostomy site from "neuropathy".) - All Other Systems All Other Systems: reports: Reviewed and negative Exam - Vital Signs Vital Signs: Vital Signs x48h Temp Pulse Resp BP Pulse Ox 03/30/22 10:00 82 14 140/58 H 94 03/30/22 08:58 81 16 108/94 H 100 03/30/22 06:55 36.6 C 115 H 18 108/62 96 - Physical Exam General Appearance: positive: No acute distress, Alert, Other (wearing a head cover (poss due to alopecia)) Eyes Bilateral: positive: Normal inspection, EOMI ENT: positive: ENT inspection nml, Dry mucous membranes Neck: positive: Nml inspection, No JVD Respiratory: positive: No respiratory distress, Breath sounds nml Cardiovascular: positive: Regular rate & rhythm, Systolic murmur Abdomen: positive: Non-tender, No distention, Other (colostomy at lower center of abd) Skin: positive: Warm, Dry Extremities: positive: Non-tender, No pedal edema Neurologic/Psychiatric: positive: Oriented x3 (Non-focal) Conclusion/Plan - Problem List (1) PENNY (acute kidney injury) Conclusion/Plan: She has a fourfold increase from her baseline creatinine of 1 month ago. It is very likely from poor p.o. intake including poor oral hydration. Will admit the patient and continue iv fluisds using D5NS. Avoid nephrotoxins. Follow BMP daily (2) Dehydration Conclusion/Plan: She admittedly had poor appetite and poor p.o. intake for 7 days. She describes this is the feeling she gets from her "latex allergy". She presented with "soft" blood pressure of 108 systolic and tachycardic with heart rate of 115 in sinus rhythm, both consistent with volume depletion. A U/S is still pending to check the spec gravity. Will start the patient on maintenance IV fluids and encourage po fluids. (3) Hyperkalemia Conclusion/Plan: Her EKG shows tachycardia (consistent with dehydration), but no ST changes or QRS widening. Will recheck if her high serum potassium has improved ever since creatinine has slightly improved after starting IV fluids otherwise will use Kayexalate or D5 plus insulin. Will order telemetry (4) Latex allergy Conclusion/Plan: She claims this is the cause of her combination of symptoms, since is it happened to her at least 2 times before. Once it was from having latex on her mattress cover, another time from having a alliance party with 140 balloons in her house. Now she has tried to avoid "latex protein" in her food but unfortunately consumed cantaloupe (which apparently has a lot of latex protein). She did take 1 week of Katlyn which helped her symptoms only minimally. Will order a clear liquid diet and advance as tolerated and specify to avoid certain foods that she knows contain "latex protein" (apples, figs, bananas, canteloupes and melons). She has also requested that she have an EpiPen which I will order at the time of discharge. (5) Poor appetite Conclusion/Plan: As above in #4 (6) History of colorectal cancer Conclusion/Plan: As per Hx (7) Colostomy in place Conclusion/Plan: Stable (8) Heart murmur Conclusion/Plan: Will obtain a complete Echo to document if this is significant valve disease, possibly adding to her SOB. - Lab Results Fish Bones: 03/30/22 07:35 03/30/22 09:41 - Diagnostic Imaging Results Diagnostic Imaging Results: positive: Final report reviewed - Other Other Results/Comments: Attestation: The patient is expected to be discharged or transferred to another facility within 96 hours: Yes.
[2022-03-30 10:59] LABS: INR 1.1 (0.8-1.2)
[2022-03-30] MEDS: DEXTROSE 5%-0.9% NACL 1,000 ML IV SCH ×2 (11:53→22:02)
[2022-03-30] MEDS: SODIUM CHLORIDE FLUSH 0.9% 10 ML SYRINGE IVP SCH ×2 (11:54→18:20)
[2022-03-30 13:35] LABS: BILIRUBIN,URINE NEGATIVE (NEGATIVE); GLUCOSE, URINE (UA) NEGATIVE (NEGATIVE); KETONES,URINE (UA) NEGATIVE (NEGATIVE); LEUKOCYTE ESTERASE, URINE LARGE (NEGATIVE); NITRITE,URINE NEGATIVE (NEGATIVE); OCCULT BLOOD,URINE LARGE (NEGATIVE); PH,URINE 5.5 PH (5.0-7.5); PROTEIN,URINE 100 mg/dL (NEGATIVE); UROBILINOGEN,URINE 0.2 (NORMAL) E.U./dL (NORMAL)
[2022-03-30 13:40] LABS: CLARITY,URINE CLOUDY (CLEAR)
[2022-03-30 13:47] LABS: BACTERIA,URINE Moderate /HPF (None Seen); SQUAMOUS EPITHELIAL CELL,UR FEW Squamous (<= Few); WBC,URINE >25 /HPF (0-5)
[2022-03-31] MEDS: SODIUM CHLORIDE FLUSH 0.9% 10 ML SYRINGE IVP SCH ×3 (01:04→17:01)
[2022-03-31 05:15] LABS: BASOPHILS % (AUTO) 0.7 %; EOSINOPHILS % (AUTO) 0.7 %; HCT - HEMATOCRIT 27.2 % (37.0-47.0); HGB - HEMOGLOBIN 8.7 g/dL (12.0-16.0); LYMPHOCYTES # (AUTO) 0.8 10^3/uL (1.5-3.5); LYMPHOCYTES % (AUTO) 19.2 %; MEAN CORPUSCULAR HEMOGLOBIN 31.9 pg (27.0-31.0); MEAN CORPUSCULAR VOLUME 99.6 fL (81.0-99.0); MEAN PLATELET VOLUME 9.1 fL (7.9-10.8); MONOCYTES # (AUTO) 0.6 10^3/uL (0.0-1.0); MONOCYTES % (AUTO) 13.1 %; NEUTROPHILS # (AUTO) 2.8 10^3/uL (1.5-6.6); NEUTROPHILS % (AUTO) 66.1 %; PLT - PLATELET COUNT 289 10^3/uL (130-450); RED BLOOD COUNT 2.73 10^6/uL (4.20-5.40); RED CELL DISTRIBUTION WIDTH 17.6 % (12.0-15.0); WHITE BLOOD COUNT 4.2 x10^3/uL (4.8-10.8)
[2022-03-31 05:37] LABS: CALCIUM 8.6 mg/dL (8.5-10.3); CREATININE 2.2 mg/dL (0.4-1.0); MAGNESIUM 1.9 mg/dL (1.7-2.8); POTASSIUM 4.2 mmol/L (3.5-5.0)
--- NOTE | 2022-03-31 07:26 | PROVIDER PROGRESS NOTE ---
Assessment/Plan - Problem List (1) PENNY (acute kidney injury) Assessment/Plan: From dehydration, is improving. Continue IV fluids but will change to one half NS because of hyponatremia. Avoid nephrotoxins. Follow BMP daily (2) Hypernatremia Assessment/Plan: Related to volume depletion plus getting 0.9 NS since admission. Will change IV maintenance fluids to 0.45 NS. Follow BMP daily (3) Abnormal urinalysis Assessment/Plan: She did not have urine output until many hours after admission, the UA was not obtained in the ED. The urinalysis is quite remarkable for high WBCs and bacteria seen. Will determine if she had any symptoms of dysuria. Possibly her 1 week of malaise was her symptom of a UTI. Will likely need treatment with antibiotics. Will await urine culture results (4) Severe aortic stenosis Assessment/Plan: Echocardiogram ordered since this murmur is heard throughout the precordium, suspect this could be aortic stenosis, this could be adding to her shortness of breath w/ activity. The Echo was done today and shows SEVERE aortic stenosis, moderate mitral regurg, Dilated RV with normal RV function, mild pu;m HTN, and normal LV size and systolic function. She will need outpt Cardiology management regarding this severe finding. (5) Poor appetite Assessment/Plan: She thinks it is related to her "latex exposure". Possibly also related to having chemotherapy. Nutrition consult has been ordered. Clear liquid diet is being advanced slowly (6) Latex allergy Assessment/Plan: She claims this is the cause of her combination of symptoms, since is it happened to her at least 2 times before. Once it was from having latex on her mattress cover, another time from having a constitution party with 140 balloons in her house. Now she has tried to avoid "latex protein" in her food but unfortunately consumed cantaloupe (which apparently has a lot of latex protein). She did take 1 week of [place] which helped her symptoms only minimally. Will order a clear liquid diet and advance as tolerated and specify to avoid certain foods that she knows contain "latex protein" (apples, figs, bananas, ca nteloupes and melons). Nutrition consult ordered She has also requested that she have an EpiPen which I will order at the time of discharge. 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 She presented with "soft" blood pressure of 108 systolic and tachycardic with heart rate of 115 in sinus rhythm, both consistent with volume depletion. Her U/A was pending at thr time of admission, to check spec gravity (10) Hyperkalemia Assessment/Plan: Resolved as her PENNY is improving by getting IV hydration - Current Meds Current Meds: Current Medications Generic Name Dose Route Start Last Admin Trade Name Freq PRN Reason Stop Dose Admin Sodium Chloride 10 ml 03/30/22 17:00 03/31/22 01:04 Sodium Chloride Flush 0.9% 10 Ml Syringe IVP Not Given 0100,0900,1700 JAYLA - Lab Result Fish Bone Diagrams: 03/31/22 04:55 03/31/22 04:55 - Additional Planning My Orders: My Active Orders 03/30/22 10:38 Activity Orders [RC] Q2HR IO [RC] IOSHIFT Initiate Bowel Care Protocol [RC] .protocol Initiate Line Care Protocol [RC] QSHIFT Initiate Personal Care Protoco [RC] .protocol Vital Signs [RC] Q4HR Acetaminophen [Tylenol] 650 mg PO Q4HR PRN Ondansetron Inj [Zofran Inj] 4 mg IVP Q6HR PRN Sodium Chloride Flush 0.9% [Normal Saline Flush 0.9%] 10 ml IVP PRN PRN Code Status [OTHERS] Routine Condition of Patient [OTHERS] Routine DVT Prophylaxis [OTHERS] Routine 03/30/22 10:40 Daily Weight [RC] 0600 IV Insert [RC] .ONCE Nutrition Consult [CONS] Routine 03/30/22 10:41 SCDs [RC] QSHIFT 03/30/22 14:24 Telemetry- [RC] Q4HR 03/30/22 14:27 Echo Transthoracic Complete [ECHO] Routine 03/30/22 Dinner Soft Mechanical Diet [DIET] 03/30/22 17:00 Sodium Chloride Flush 0.9% [Normal Saline Flush 0.9%] 10 ml IVP 0100,0900,1700 03/31/22 08:00 NS 0.45% @ 83.333 mls/hr Sodium Chloride 0.45% [Normal Saline 0.45%] 1,000 ml IV 83.333 mls/hr 04/01/22 05:00 BMP - BASIC METABOLIC PANEL [CHEM] DAILYLAB CBC - COMP BLD CT W/AUTO DIFF [HEME] DAILYLAB 04/02/22 05:00 BMP - BASIC METABOLIC PANEL [CHEM] DAILYLAB CBC - COMP BLD CT W/AUTO DIFF [HEME] DAILYLAB 04/03/22 05:00 CBC - COMP BLD CT W/AUTO DIFF [HEME] DAILYLAB Subjective - Subjective Patient Reports: Feeling Better (c/o being chilled and needs warm blankets), Resting Comfortably Objective Vital Signs: Vital Signs - 24 hr 03/30/22 03/30/22 03/30/22 08:58 10:00 11:08 Temperature Heart Rate 81 82 77 Heart Rate [ Brachial] Respiratory 16 14 15 Rate Blood Pressure 108/94 H 140/58 H 147/59 H Blood Pressure [Right Brachial artery] O2 Saturation 100 94 100 03/30/22 03/30/22 03/30/22 11:32 16:59 19:38 Temperature 36.3 C L 36.4 C L 36.6 C Heart Rate Heart Rate [ 76 72 75 Brachial] Respiratory 16 18 18 Rate Blood Pressure Blood Pressure 156/50 H 138/59 H 123/37 L [Right Brachial artery] O2 Saturation 100 100 95 03/30/22 03/30/22 03/31/22 21:37 23:40 04:09 Temperature 36.6 C 36.5 C 36.4 C L Heart Rate Heart Rate [ 74 75 68 Brachial] Respiratory 16 16 16 Rate Blood Pressure Blood Pressure 126/55 L 110/58 L 146/50 H [Right Brachial artery] O2 Saturation 100 100 100 Oxygen O2 Source Room air I&O (Last 24 Hrs): Intake and Output Totals x24h 03/29/22 03/30/22 03/31/22 23:59 23:59 23:59 Intake Total 3960 1051.667 Output Total 600 375 Balance 3360 676.667 General: Alert, Oriented x3 HEENT: Mucous membr. moist/pink Neck: Supple, No JVD Neuro: Alert, Non Focal Cardiovascular: Regular rate, Other (murmur) Respiratory: No respiratory distress Abdomen: Soft Extremities: No edema, No tenderness/swelling - Results Results: Laboratory Results WBC 4.2 x10^3/uL (4.8-10.8) L 03/31/22 04:55 RBC 2.73 10^6/uL (4.20-5.40) L 03/31/22 04:55 Hgb 8.7 g/dL (12.0-16.0) L 03/31/22 04:55 Hct 27.2 % (37.0-47.0) L 03/31/22 04:55 MCV 99.6 fL (81.0-99.0) H 03/31/22 04:55 MCH 31.9 pg (27.0-31.0) H 03/31/22 04:55 MCHC 32.0 g/dL (32.0-36.0) 03/31/22 04:55 RDW 17.6 % (12.0-15.0) H 03/31/22 04:55 Plt Count 289 10^3/uL (130-450) 03/31/22 04:55 MPV 9.1 fL (7.9-10.8) 03/31/22 04:55 Neut # (Auto) 2.8 10^3/uL (1.5-6.6) 03/31/22 04:55 Lymph # (Auto) 0.8 10^3/uL (1.5-3.5) L 03/31/22 04:55 [place] # (Auto) 0.6 10^3/uL (0.0-1.0) 03/31/22 04:55 Eos # (Auto) 0.0 10^3/uL (0.0-0.7) 03/31/22 04:55 Baso # (Auto) 0.0 10^3/uL (0.0-0.1) 03/31/22 04:55 Absolute Nucleated RBC 0.00 x10^3/uL 03/31/22 04:55 Nucleated RBC % 0.0 /100WBC 03/31/22 04:55 PT 12.0 secs (9.9-12.6) 03/30/22 07:35 INR 1.1 (0.8-1.2) 03/30/22 07:35 Sodium 147 mmol/L (135-145) H 03/31/22 04:55 Potassium 4.2 mmol/L (3.5-5.0) 03/31/22 04:55 Chloride 124 mmol/L (101-111) H* 03/31/22 04:55 Carbon Dioxide 12 mmol/L (21-32) L* 03/31/22 04:55 Anion Gap 11.0 (6-13) 03/31/22 04:55 BUN 83 mg/dL (6-20) H* 03/31/22 04:55 Creatinine 2.2 mg/dL (0.4-1.0) H 03/31/22 04:55 Estimated GFR (MDRD) 21 (>89) L 03/31/22 04:55 Glucose 101 mg/dL (70-100) H 03/31/22 04:55 Calcium 8.6 mg/dL (8.5-10.3) 03/31/22 04:55 Phosphorus 5.0 mg/dL (2.5-4.6) H 03/31/22 04:55 Magnesium 1.9 mg/dL (1.7-2.8) 03/31/22 04:55 Total Bilirubin 0.9 mg/dL (0.2-1.0) 03/30/22 07:35 AST 12 IU/L (10-42) 03/30/22 07:35 ALT 11 IU/L (10-60) 03/30/22 07:35 Alkaline Phosphatase 62 IU/L (42-121) 03/30/22 07:35 Troponin I High Sens 28.2 ng/L (2.3-14.8) H* 03/30/22 07:35 B-Natriuretic Peptide 20 pg/mL (5-100) 03/30/22 07:35 Total Protein 7.9 g/dL (6.7-8.2) 03/30/22 07:35 Albumin 4.1 g/dL (3.2-5.5) 03/30/22 07:35 Globulin 3.8 g/dL (2.1-4.2) 03/30/22 07:35 Albumin/Globulin Ratio 1.1 (1.0-2.2) 03/30/22 07:35 Lipase 45 U/L (22-51) 03/30/22 07:35 TSH 2.10 uIU/mL (0.34-5.60) 03/30/22 07:35 Urine Color YELLOW 03/30/22 13:05 Urine Clarity CLOUDY (CLEAR) 03/30/22 13:05 Urine pH 5.5 PH (5.0-7.5) 03/30/22 13:05 Ur Specific [place] 1.025 (1.002-1.030) 03/30/22 13:05 Urine Protein 100 mg/dL (NEGATIVE) H 03/30/22 13:05 Urine Glucose (UA) NEGATIVE mg/dL (NEGATIVE) 03/30/22 13:05 Urine Ketones NEGATIVE mg/dL (NEGATIVE) 03/30/22 13:05 Urine Occult Blood LARGE (NEGATIVE) H 03/30/22 13:05 Urine Nitrite NEGATIVE (NEGATIVE) 03/30/22 13:05 Urine Bilirubin NEGATIVE (NEGATIVE) 03/30/22 13:05 Urine Urobilinogen 0.2 (NORMAL) E.U./dL (NORMAL) 03/30/22 13:05 Ur Leukocyte Esterase LARGE (NEGATIVE) H 03/30/22 13:05 Urine RBC 6-10 /HPF (0-5) H 03/30/22 13:05 Urine WBC >25 /HPF (0-5) H 03/30/22 13:05 Ur Squamous Epith Cells FEW Squamous (<= Few) 03/30/22 13:05 Urine Bacteria Moderate /HPF (None Seen) H 03/30/22 13:05 Ur Microscopic Review INDICATED 03/30/22 13:05 Urine Culture Comments INDICATED 03/30/22 13:05 Nasal Adenovirus (PCR) NOT DETECTED 03/30/22 07:37 Nasal B. parapertussis DNA (PCR) NOT DETECTED 03/30/22 07:37 Nasal Coronavir 229E PCR NOT DETECTED 03/30/22 07:37 Nasal Coronavir HKU1 PCR NOT DETECTED 03/30/22 07:37 Nasal Coronavir NL63 PCR NOT DETECTED 03/30/22 07:37 Nasal Coronavir OC43 PCR NOT DETECTED 03/30/22 07:37 Nasal Enterovir/Rhinovir PCR NOT DETECTED 03/30/22 07:37 Nasal Influenza B PCR NOT DETECTED 03/30/22 07:37 Nasal Influenza A PCR NOT DETECTED 03/30/22 07:37 Nasal Parainfluen 1 PCR NOT DETECTED 03/30/22 07:37 Nasal Parainfluen 2 PCR NOT DETECTED 03/30/22 07:37 Nasal Parainfluen 3 PCR NOT DETECTED 03/30/22 07:37 Nasal Parainfluen 4 PCR NOT DETECTED 03/30/22 07:37 Nasal RSV (PCR) NOT DETECTED 03/30/22 07:37 Nasal B.pertussis DNA PCR NOT DETECTED 03/30/22 07:37 Nasal C.pneumoniae (PCR) NOT DETECTED 03/30/22 07:37 Tank Human Metapneumo PCR NOT DETECTED 03/30/22 07:37 Nasal M.pneumoniae (PCR) NOT DETECTED 03/30/22 07:37 Nasal SARS-CoV-2 (PCR) NOT DETECTED 03/30/22 07:37
[2022-03-31] MEDS: SODIUM CHLORIDE 0.45% 1,000 ML IV SCH ×2 (08:47→21:29)
[2022-04-01 04:54] LABS: BASOPHILS % (AUTO) 0.7 %; EOSINOPHILS # (AUTO) 0.1 10^3/uL (0.0-0.7); EOSINOPHILS % (AUTO) 1.5 %; HCT - HEMATOCRIT 27.4 % (37.0-47.0); HGB - HEMOGLOBIN 8.7 g/dL (12.0-16.0); LYMPHOCYTES # (AUTO) 0.9 10^3/uL (1.5-3.5); LYMPHOCYTES % (AUTO) 16.3 %; MEAN CORPUSCULAR HEMOGLOBIN 31.6 pg (27.0-31.0); MEAN CORPUSCULAR HGB CONC 31.8 g/dL (32.0-36.0); MEAN CORPUSCULAR VOLUME 99.6 fL (81.0-99.0); MEAN PLATELET VOLUME 9.3 fL (7.9-10.8); MONOCYTES # (AUTO) 0.6 10^3/uL (0.0-1.0); NEUTROPHILS # (AUTO) 3.8 10^3/uL (1.5-6.6); NEUTROPHILS % (AUTO) 70.1 %; PLT - PLATELET COUNT 274 10^3/uL (130-450); RED BLOOD COUNT 2.75 10^6/uL (4.20-5.40); RED CELL DISTRIBUTION WIDTH 17.6 % (12.0-15.0); WHITE BLOOD COUNT 5.5 x10^3/uL (4.8-10.8)
[2022-04-01] MEDS: SODIUM CHLORIDE FLUSH 0.9% 10 ML SYRINGE IVP SCH ×3 (04:59→16:42)
[2022-04-01 05:15] LABS: CALCIUM 8.2 mg/dL (8.5-10.3); CREATININE 1.6 mg/dL (0.4-1.0); POTASSIUM 3.9 mmol/L (3.5-5.0)
[2022-04-01] MEDS: CHOLECALCIFEROL 25 MCG TABLET PO SCH (08:00)
[2022-04-01] MEDS: MULTIVITAMIN TABLET PO SCH (08:01)
[2022-04-01] MEDS: SODIUM CHLORIDE 0.45% 1,000 ML IV SCH ×2 (08:01→19:12)
--- NOTE | 2022-04-01 11:19 | PROVIDER PROGRESS NOTE ---
Assessment/Plan - Problem List (1) PENNY (acute kidney injury) Assessment/Plan: From dehydration, is improving on her 3rd day of iv fluids. Creat of 1.6 today, is not at her baseline yet. Pt was educated regarding good oral liquids (not caffeine-containing drinks, for example) for proper oral hydration. She reported that she does not think she can hydrate orally the equivalent of 1L/day that she is still getting via iv fluids. Continue IV fluids, now infusing at 83cc/hr. Avoid nephrotoxins. Follow BMP daily (2) Abnormal urinalysis Assessment/Plan: She did not have urine output until many hours after admission, and the UA was not obtained in the ED. The urinalysis was quite remarkable for high WBCs and bacteria seen. Will determine if she had any symptoms of dysuria. Possibly her 1 week of malaise was her symptom of a UTI, hoiwever, her malaise and nausea have improved without antibiotics here. Will await urine culture results (3) Severe aortic stenosis Assessment/Plan: Echocardiogram was ordered, because this murmur is heard throughout the precordium, and I suspected this could be aortic stenosis, which could be adding to her shortness of breath w/ activity. The Echo was done and showed SEVERE aortic stenosis, moderate mitral regurg,a dilated RV with normal RV function, mild pulm HTN, and normal LV size and systolic function. She will need outpatient Cardiology management regarding this severe finding. She allowed me to discuss all this with her son by phone, which I did last evening. (4) Dehydration Assessment/Plan: Improved. She presented with "soft" blood pressure of 108 systolic and tachycardic with heart rate of 115 in sinus rhythm, both consistent with volume depletion. Her urinalysis was pending at ter time of admission, to check spec gravity. Pt was educated regarding good oral liquids (not caffeine-containing drinks, for example) for proper oral hydration. She reported that she does not think she can hydrate orally the equivalent of 1L/day that she is still getting via iv fluids. Continue IV fluids, now infusing at 83cc/hr. (5) Latex allergy Assessment/Plan: She claims this is the cause of her combination of symptoms, since is it happened to her at least 2 times before. Once it was from having latex on her mattress cover, another time from having a republican with 140 balloons in her house. Now she has tried to avoid "latex protein" in her food but unfortunately consumed cantaloupe (which apparently has a lot of latex protein). She did take 1 week of [place] which helped her symptoms only minimally. Will order a clear liquid diet and advance as tolerated and specify to avoid certain foods that she knows contain "latex protein" (apples, figs, bananas, canteloupes and melons). her son spoke to me about this by phone yesterday. I agree with him that she needs an Blocker [employer] Polisher to evaluate this. She has also requested that she have an EpiPen which I will order at the time of discharge. (6) History of colorectal cancer Assessment/Plan: As per Hx (7) Colostomy in place Assessment/Plan: As per Hx (8) Poor appetite Assessment/Plan: Resolved. She thinks it was related to her "latex exposure". Possibly also related to having chemotherapy. Nutrition consult was ordered. Clear liquid diet has been advanced successfully. (9) Hyperkalemia Assessment/Plan: Resolved as her PENNY is improving by getting IV hydration (10) Hypernatremia Assessment/Plan: Resolved It was related to volume depletion plus getting 0.9 NS since admission. We changed IV maintenance fluids to 0.45 NS. Following BMP daily - Current Meds Current Meds: Current Medications Generic Name Dose Route Start Last Admin Trade Name Valeriy PRN Reason Stop Dose Admin Cholecalciferol 50 mcg 04/01/22 09:00 04/01/22 08:00 Cholecalciferol 25 Mcg Tablet PO 50 mcg DAILY JAYLA Administration Sodium Chloride 1,000 mls @ 83.333 mls/hr 03/31/22 08:00 04/01/22 08:01 Normal Saline 0.45% IV 83.33 mls/hr .Q12H JAYLA Administration Multivitamins 1 tab 04/01/22 08:00 04/01/22 08:01 Multivitamin Tablet PO 1 tab DAILYWM JAYLA Administration Sodium Chloride 10 ml 03/30/22 17:00 04/01/22 09:40 Sodium Chloride Flush 0.9% 10 Ml Syringe IVP Not Given 0100,0900,1700 JAYLA - Lab Result Fish Bone Diagrams: 04/01/22 04:34 04/01/22 04:34 - Additional Planning My Orders: My Active Orders 04/01/22 08:00 Multivitamin [Theragran] 1 tab PO DAILYWM 04/01/22 09:00 Cholecalciferol [Vitamin D3] 50 mcg PO DAILY 04/01/22 10:14 Vital Signs - Orthostatic [RC] DAILY 04/02/22 05:00 BMP - BASIC METABOLIC PANEL [CHEM] DAILYLAB CBC - COMP BLD CT W/AUTO DIFF [HEME] DAILYLAB 04/03/22 05:00 CBC - COMP BLD CT W/AUTO DIFF [HEME] DAILYLAB Subjective - Subjective Patient Reports: Feeling Better, Resting Comfortably Objective Vital Signs: Vital Signs - 24 hr 03/31/22 03/31/22 03/31/22 13:19 15:40 20:14 Temperature 36.2 C L 36.4 C L 36.6 C Heart Rate [ 68 70 69 Brachial] Respiratory 18 20 20 Rate Blood Pressure 145/40 H [Left Brachial artery] Blood Pressure 165/50 H 175/54 H [Right Brachial artery] O2 Saturation 100 94 100 04/01/22 04/01/22 04/01/22 00:01 05:15 07:57 Temperature 36.5 C 36.6 C 36.6 C Heart Rate [ 62 60 67 Brachial] Respiratory 18 16 20 Rate Blood Pressure [Left Brachial artery] Blood Pressure 110/64 114/63 154/61 H [Right Brachial artery] O2 Saturation 99 100 99 Oxygen O2 Source Room air I&O (Last 24 Hrs): Intake and Output Totals x24h 03/30/22 03/31/22 04/01/22 23:59 23:59 23:59 Intake Total 3960 3121.667 1267.743 Output Total 600 1270 600 Balance 3360 1851.667 667.743 General: Alert, Oriented x3, Other (Cap on her head (due to ?alopecia)) HEENT: Other (Mucosa dry) Neck: Supple, No JVD Neuro: Alert, Non Focal Cardiovascular: Regular rate, Other (syst murmur) Respiratory: No respiratory distress, Breath sounds nml Abdomen: Normal bowel sounds, Other (colostomy in place) Extremities: No edema - Results Results: Laboratory Results WBC 5.5 x10^3/uL (4.8-10.8) 04/01/22 04:34 RBC 2.75 10^6/uL (4.20-5.40) L 09/08/22 04:34 Hgb 8.7 g/dL (12.0-16.0) L 04/01/22 04:34 Hct 27.4 % (37.0-47.0) L 04/01/22 04:34 MCV 99.6 fL (81.0-99.0) H 04/01/22 04:34 MCH 31.6 pg (27.0-31.0) H 04/01/22 04:34 MCHC 31.8 g/dL (32.0-36.0) L 04/01/22 04:34 RDW 17.6 % (12.0-15.0) H 04/01/22 04:34 Plt Count 274 10^3/uL (130-450) 04/01/22 04:34 MPV 9.3 fL (7.9-10.8) 04/01/22 04:34 Neut # (Auto) 3.8 10^3/uL (1.5-6.6) 04/01/22 04:34 Lymph # (Auto) 0.9 10^3/uL (1.5-3.5) L 04/01/22 04:34 [place] # (Auto) 0.6 10^3/uL (0.0-1.0) 04/01/22 04:34 Eos # (Auto) 0.1 10^3/uL (0.0-0.7) 04/01/22 04:34 Baso # (Auto) 0.0 10^3/uL (0.0-0.1) 04/01/22 04:34 Absolute Nucleated RBC 0.00 x10^3/uL 04/01/22 04:34 Nucleated RBC % 0.0 /100WBC 04/01/22 04:34 PT 12.0 secs (9.9-12.6) 03/30/22 07:35 INR 1.1 (0.8-1.2) 03/30/22 07:35 Sodium 141 mmol/L (135-145) 04/01/22 04:34 Potassium 3.9 mmol/L (3.5-5.0) 04/01/22 04:34 Chloride 123 mmol/L (101-111) H* 04/01/22 04:34 Carbon Dioxide 13 mmol/L (21-32) L 04/01/22 04:34 Anion Gap 5.0 (6-13) L 04/01/22 04:34 BUN 56 mg/dL (6-20) H 04/01/22 04:34 Creatinine 1.6 mg/dL (0.4-1.0) H 04/01/22 04:34 Estimated GFR (MDRD) 31 (>89) L 04/01/22 04:34 Glucose 82 mg/dL (70-100) 04/01/22 04:34 Calcium 8.2 mg/dL (8.5-10.3) L 04/01/22 04:34 Phosphorus 5.0 mg/dL (2.5-4.6) H 03/31/22 04:55 Magnesium 1.9 mg/dL (1.7-2.8) 03/31/22 04:55 Total Bilirubin 0.9 mg/dL (0.2-1.0) 03/30/22 07:35 AST 12 IU/L (10-42) 03/30/22 07:35 ALT 11 IU/L (10-60) 03/30/22 07:35 Alkaline Phosphatase 62 IU/L (42-121) 03/30/22 07:35 Troponin I High Sens 28.2 ng/L (2.3-14.8) H* 03/30/22 07:35 B-Natriuretic Peptide 20 pg/mL (5-100) 03/30/22 07:35 Total Protein 7.9 g/dL (6.7-8.2) 03/30/22 07:35 Albumin 4.1 g/dL (3.2-5.5) 03/30/22 07:35 Globulin 3.8 g/dL (2.1-4.2) 03/30/22 07:35 Albumin/Globulin Ratio 1.1 (1.0-2.2) 03/30/22 07:35 Lipase 45 U/L (22-51) 03/30/22 07:35 TSH 2.10 uIU/mL (0.34-5.60) 03/30/22 07:35 Urine Color YELLOW 03/30/22 13:05 Urine Clarity CLOUDY (CLEAR) 03/30/22 13:05 Urine pH 5.5 PH (5.0-7.5) 03/30/22 13:05 Ur Specific [place] 1.025 (1.002-1.030) 03/30/22 13:05 Urine Protein 100 mg/dL (NEGATIVE) H 03/30/22 13:05 Urine Glucose (UA) NEGATIVE mg/dL (NEGATIVE) 03/30/22 13:05 Urine Ketones NEGATIVE mg/dL (NEGATIVE) 03/30/22 13:05 Urine Occult Blood LARGE (NEGATIVE) H 03/30/22 13:05 Urine Nitrite NEGATIVE (NEGATIVE) 03/30/22 13:05 Urine Bilirubin NEGATIVE (NEGATIVE) 03/30/22 13:05 Urine Urobilinogen 0.2 (NORMAL) E.U./dL (NORMAL) 03/30/22 13:05 Ur Leukocyte Esterase LARGE (NEGATIVE) H 03/30/22 13:05 Urine RBC 6-10 /HPF (0-5) H 03/30/22 13:05 Urine WBC >25 /HPF (0-5) H 03/30/22 13:05 Ur Squamous Epith Cells FEW Squamous (<= Few) 03/30/22 13:05 Urine Bacteria Moderate /HPF (None Seen) H 03/30/22 13:05 Ur Microscopic Review INDICATED 03/30/22 13:05 Urine Culture Comments INDICATED 03/30/22 13:05 Nasal Adenovirus (PCR) NOT DETECTED 03/30/22 07:37 Nasal B. parapertussis DNA (PCR) NOT DETECTED 03/30/22 07:37 Nasal Coronavir 229E PCR NOT DETECTED 03/30/22 07:37 Nasal Coronavir HKU1 PCR NOT DETECTED 03/30/22 07:37 Nasal Coronavir NL63 PCR NOT DETECTED 03/30/22 07:37 Nasal Coronavir OC43 PCR NOT DETECTED 03/30/22 07:37 Nasal Enterovir/Rhinovir PCR NOT DETECTED 03/30/22 07:37 Nasal Influenza B PCR NOT DETECTED 03/30/22 07:37 Nasal Influenza A PCR NOT DETECTED 03/30/22 07:37 Nasal Parainfluen 1 PCR NOT DETECTED 03/30/22 07:37 Nasal Parainfluen 2 PCR NOT DETECTED 03/30/22 07:37 Nasal Parainfluen 3 PCR NOT DETECTED 03/30/22 07:37 Nasal Parainfluen 4 PCR NOT DETECTED 03/30/22 07:37 Nasal RSV (PCR) NOT DETECTED 03/30/22 07:37 Nasal B.pertussis DNA PCR NOT DETECTED 03/30/22 07:37 Nasal C.pneumoniae (PCR) NOT DETECTED 03/30/22 07:37 Tank Human Metapneumo PCR NOT DETECTED 03/30/22 07:37 Nasal M.pneumoniae (PCR) NOT DETECTED 03/30/22 07:37 Nasal SARS-CoV-2 (PCR) NOT DETECTED 03/30/22 07:37
[2022-04-01] MEDS: METOPROLOL SUCCINATE 25 MG TABLET PO SCH (20:35)
[2022-04-02] MEDS: SODIUM CHLORIDE FLUSH 0.9% 10 ML SYRINGE IVP SCH ×2 (00:58→10:02)
[2022-04-02 05:21] LABS: BASOPHILS % (AUTO) 0.6 %; EOSINOPHILS # (AUTO) 0.1 10^3/uL (0.0-0.7); EOSINOPHILS % (AUTO) 1.3 %; HCT - HEMATOCRIT 27.6 % (37.0-47.0); HGB - HEMOGLOBIN 8.8 g/dL (12.0-16.0); LYMPHOCYTES # (AUTO) 1.1 10^3/uL (1.5-3.5); MEAN CORPUSCULAR HEMOGLOBIN 31.7 pg (27.0-31.0); MEAN CORPUSCULAR HGB CONC 31.9 g/dL (32.0-36.0); MEAN CORPUSCULAR VOLUME 99.3 fL (81.0-99.0); MEAN PLATELET VOLUME 8.9 fL (7.9-10.8); MONOCYTES # (AUTO) 0.6 10^3/uL (0.0-1.0); MONOCYTES % (AUTO) 10.9 %; NEUTROPHILS # (AUTO) 3.5 10^3/uL (1.5-6.6); NEUTROPHILS % (AUTO) 66.8 %; PLT - PLATELET COUNT 246 10^3/uL (130-450); RED BLOOD COUNT 2.78 10^6/uL (4.20-5.40); RED CELL DISTRIBUTION WIDTH 17.3 % (12.0-15.0); WHITE BLOOD COUNT 5.3 x10^3/uL (4.8-10.8)
[2022-04-02 05:28] LABS: CALCIUM 8.1 mg/dL (8.5-10.3); CREATININE 1.3 mg/dL (0.4-1.0); POTASSIUM 3.9 mmol/L (3.5-5.0)
[2022-04-02] MEDS: MULTIVITAMIN TABLET PO SCH (07:51)
[2022-04-02] MEDS: CHOLECALCIFEROL 25 MCG TABLET PO SCH (07:51)
[2022-04-02] MEDS: SODIUM CHLORIDE 0.45% 1,000 ML IV SCH (08:19)
--- NOTE | 2022-04-02 08:57 | Discharge Plan ---
Discharge Plan Problem Reviewed?: Yes Disposition: Home Health Service Condition: Fair Prescriptions: Metoprolol Succinate [Toprol Xl] 12.5 mg PO BID #30 tablet Diet: Regular Activity Restrictions: Activity as Tolerated Shower Restrictions: No Assistance Devices: Cane Instruction Topics: ED Dehydration Prevent Ch Health Concerns: You were hospitalized because of significant kidney failure. It was caused by dehydration. You received several days of high-dose IV fluids for rehydration. The kidney function has improved nearly back to your baseline. Since your poor appetite and malaise was probably caused by the "latex protein allergy" that you described, you need to have this tested by an Hearing Impaired Teacher to have proper management going forward. You are being discharged today and advised to have high fluid intake for the next 2 days (this means as much as a gallon a day). This does not include caffeine or alcohol, but all other fluids. You should see your primary care provider in the next 1 to 2 weeks for a recheck of the kidney function and blood tests. We evaluated your heart murmur with an Echocardiogram. You have severe aortic stenosis. You need referral from your Primary Care Provider to a Automotive Painter Helper for further monitoring and treatment of this. You are on a different medication for blood pressure control now, since the Lisinopril, that you were on, is not a good medication for someone with severe aortic stenosis and it can also affect the kidneys in a detrimental way. Please use Toprol-XL 25 mg, half tablet twice a day. This prescription was electronically sent to [facility] in [place]. You have become very deconditioned. A Home Health service has been ordered to give you physical therapy at home. Plan of Treatment: Stop taking Lisinopril. Start taking Toprol-XL. Increase your oral hydration for the next 2 days. Get referral to an Hearing Impaired Teacher. Get referral to Automotive Painter Helper. Otherwise, please resume all your other medications and management that you did pre-hospitalization. Care Goals: Improvement in symptoms and stabilization are the goals. Assessment: The patient understands and is agreeable with the plan. Additional Instructions or Follow Up instructions: If you have new or worsening symptoms, call your PCP for advice or come to the ER. No Smoking: If you smoke, Please STOP! Call for help. Follow-up with: Natalie Jorgensen ARNP [Primary Care Provider] -
[2022-04-02] MEDS ORDERED: MAGNESIUM OXIDE 400 MG TABLET PO SCH (09:00)
[2022-04-02] MEDS: METOPROLOL SUCCINATE 25 MG TABLET PO SCH (09:31)
--- NOTE | 2022-04-02 11:33 | DISCHARGE SUMMARY ---
Discharge Summary Admit Date: 03/30/22 Discharge Date: 04/02/22 Discharging Provider: Dr Dione Mckenzie Primary Care Provider: JENNIFER Huang, Dr Matthew (Oncologist) Code Status: Attempt Resuscitation Condition at Discharge: Fair Discharge Disposition: [facility] History of Present Illness: This is an 82-year-old white female with a history of colorectal cancer status post resection including part of her urinary bladder and she has a colostomy. She gets chemotherapy, which is planned lifelong through her Oncologist at [place], and chemo treatment is 2 weeks/month then 2 weeks/month of break. She has a "latex allergy" which causes her to get weakness, malaise, poor appetite, not anaphylaxis or rash. She has started to avoid latex protein in certain foods like cantaloupe, melon, figs, bananas, apples. Recently she did consume cantaloupe and the following day started to develop weakness and malaise, then had no appetite for days, and mild nausea but no vomiting or diarrhea, no fever. This has lasted for 7 days, despite her trying to sip Gatorade for example. She did take 1 week of Katlyn which helped her symptoms only minimally.She then got worsening weakness and mild shortness of breath and therefore presented to the ED today. Her labs showed significant creatinine elevation of 4.4 (usual creatinine is 1.1 from a month ago). The ED provider reached out to the Hospitalist team to admit this patient. for treating PENNY from dehydration. I spoke to her about CODE STATUS and she wishes to be a Full Code. - HOSPITAL COURSE Hospital Course: (1) PENNY (acute kidney injury) From dehydration. Her creat improved slowly on iv fluids. At discharge her creat was 1.3. on her 3rd day of iv fluids. (2) Dehydration She presented with "soft" blood pressure of 108 systolic and tachycardic with heart rate of 115 in sinus rhythm, both consistent with volume depletion. She got iv fluids until being discharged. She was educated regarding good oral liquids (not caffeine-containing drinks, for example) for proper hydration. (3) Latex allergy She claims this is the cause of her combination of symptoms, since is it happened to her at least 2 times before. Once it was from having latex on her mattress cover, another time from having a alliance party with 140 balloons in her house. Now she has tried to avoid "latex protein" in her food but unfortunately consumed cantaloupe (which apparently has a lot of latex protein). She did take 1 week of Katlyn then, which helped her symptoms only minimally. We ordered a clear liquid diet and advance as tolerated and specified waht foods to avoid. Her son spoke to me and I agree with him that she needs an Bench Worker Helper to evaluate this. She also requested that she have an EpiPen ordered at the time of discharge, which was done. (4) Poor appetite Resolved. She thought it was related to her "latex exposure". Possibly also related to having chemotherapy. (5) Severe aortic stenosis A loud systolic murmur was heard at admission. She said she knew about the longstanding murmur but "was scared to know any details". An Echocardiogram was ordered and showed SEVERE aortic stenosis, moderate mitral regurg, a dilated RV with normal RV function, mild pulm HTN, and normal LV size and systolic function. She was told the details and she needs outpatient Cardiology management regarding this severe finding. She allowed me to discuss all this with her son by phone, which was done. (6) PSVT On telemetry, the patient had a 14-beat run of SVT, rate 100. She was asymptomatic with it. (7) Hyperkalemia Resolved as her PENNY improved by getting IV hydration (8) Hypernatremia Resolved. It was related to volume depletion plus getting 0.9 NS since admission. We changed her V maintenance fluids to 0.45 NS. (9) Abnormal urinalysis She had no dysuria. The urinalysis had high WBCs and bacteria seen, but the culture grew only contaminant. She did not receive any antibiotics. (10) History of colorectal cancer As per Hx. She receives chemo 2 weeks per month, planned lifelong, she said. (11) Colostomy in place Stable. - ALLERGIES Allergies/Adverse Reactions: Allergies Allergy/AdvReac Type Severity Reaction Status Date / Time latex Allergy Unknown Verified 03/30/22 06:54 - MEDICATIONS Home Medications: Ambulatory Orders Medication Instructions Recorded Confirmed Multivitamin [Multiple Vitamins] 1 tab PO DAILY 08/24/17 03/30/22 Capecitabine [Xeloda] 1,000 mg PO UD 03/30/22 03/30/22 EPINEPHrine [Epipen Jr] 0.15 mg IM ONCE PRN #1 applic 04/02/22 Metoprolol Succinate [Toprol Xl] 12.5 mg PO BID #30 tablet 04/02/22 - PHYSICAL EXAM AT DISCHARGE General Appearance: positive: No acute distress, Alert, Other (Alopecia) Eyes Bilateral: positive: Normal inspection, EOMI ENT: positive: ENT inspection nml, No signs of dehydration Neck: positive: Nml inspection, No JVD Respiratory: positive: No respiratory distress, Breath sounds nml Cardiovascular: positive: Regular rate & rhythm, Systolic murmur Abdomen: positive: Non-tender, Nml bowel sounds, No distention Skin: positive: Warm, Dry Extremities: positive: Non-tender, No pedal edema Neurologic/Psychiatric: positive: Oriented x3 (Non-focal) - LABS Result Diagrams: 04/02/22 05:14 04/02/22 05:14 - DIAGNOSTIC IMAGING Diagnostic Imaging Results: Final report reviewed - FOLLOW UP Follow Up: See PCP in 1-2 weeks. Get referral to Cardiology. Continue Oncology care. - TIME SPENT Time Spent in Discharge (Minutes): 60
[2022-04-02 11:40] VITALS: BP 197/61
== END 2022-04-02 14:30 | disposition home health service (06) | DRG 683 ==
LOC: EDUNIT# → ED 06:49 → MS2 10:38
PROVIDERS: ADMIT Internal Medicine; ATTEND Internal Medicine
DX: N17.9 Acute kidney failure, unspecified (principal); N28.9 Disorder of kidney and ureter, unspecified; R06.02 Shortness of breath; E87.0 Hyperosmolality and hypernatremia; I47.1 Supraventricular tachycardia; E86.0 Dehydration; Z20.822 Contact with and (suspected) exposure to COVID-19; I35.0 Nonrheumatic aortic (valve) stenosis; E87.5 Hyperkalemia; R63.0 Anorexia; R82.90 Unspecified abnormal findings in urine; Z68.24 Body mass index [BMI] 24.0-24.9, adult; Z85.038 Personal history of other malignant neoplasm of large intestine; Z90.49 Acquired absence of other specified parts of digestive tract; Z53.29 Procedure and treatment not carried out because of patient's decision for other reasons; Z91.040 Latex allergy status; Z92.21 Personal history of antineoplastic chemotherapy; Z93.3 Colostomy status
CPT/HCPCS: 36415; 80048; 80053; 81001; 83690; 83735; 83880; 84100; 84443; 84484; 85025; 85610; 87086; 87633; 93005; 93306; 96360; 96361; 97163; 97530; 99284; 99285; A9270; 81003

== ENCOUNTER 2024-10-23 13:23 | Inpatient (IN) ==
--- OUTSIDE RECORDS SUMMARY | 2024-10-23 13:29 | EXTERNAL MEDICAL SUMMARY RPT | Continuity of Care Document ---
Author Organization [place] Address [address] [place] [address] Phone Problems date description facility 2024-08-16 00[facility]18 [facility]18 [facility] deficiency anem ia [facility] to [facility] 2024-08-16 00:18 Insomnia due to medical conditi on [employer] 2024-08-16 00:18 Acute gastric ulcer with hemorr georges [facility] 2024-08-16 00:18 Disorder of kidney and ureter, unspecified [facility] 2024-08-16 00:18 Colostomy status [employer] 2024-08-25 12:11 Acute gastric [facility] with hemorr [facility]orges [facility] 2024-08-27 10:13 Acute gastric ulcer with hemorr [facility]orges [facility] Results/Labs test date facility value unit notes Result panel 1 H. PYLORIS ANTIGEN STL 2024-08-25 11:00 [employer] NEGAT RAGHAVENDRA (missing) (missing) Social History date description facility
--- NOTE | 2024-10-23 13:48 | ED Physician Documentation ---
PD HPI FOCAL NEURO Stated complaint Stated Complaint: STROKE Chief complaint Chief Complaint: Neuro History obtained from History obtained from: Patient, Family and EMS (neighbor went to pt house to check on her at 12:45 and found her on floor with facial droop and unable to speak. Daughter usually checks on her earlier in morning but had had surgery so did not go to pt house as usual. Had neighbor go to check. EMS called. Last seen normal at about 6-7 pm last PM.) History of Present Illness Timing - onset: Unknown Timing - details: Abrupt onset Time of symptom onset unknown: Time of onset unknown Weakness: Face, Arm, Leg and Right Numbness: Face, Arm, Leg and Right Associated symptoms: Nausea / vomiting (some emesis noted on floor per Medics. ); No Headache Contributing factors: negative Anticoagulated Baseline status: positive A&OX3, ambulatory, indep and Walker Similar symptoms before: Has not had sx before Meds/Allgy Home Medications Ambulatory Orders Medication Instructions Recorded Confirmed capecitabine 500 mg tablet (Xeloda) 1,000 mg PO UD 03/30/22 10/23/24 cholecalciferol (vitamin D3) 50 50 mcg PO DAILY 05/03/24 10/23/24 mcg (2,000 unit) capsule lutein 20 mg capsule 20 mg PO DAILY 05/03/24 10/23/24 acetaminophen 500 mg tablet 500 mg PO Q6H PRN fever or pain 07/04/24 10/23/24 multivitamin (Daily Multi-Vitamin 1 tab PO QDAY 07/04/24 10/23/24 tablet) pantoprazole 40 mg tablet,delayed 40 mg PO QDAY 07/04/24 10/23/24 release tramadol 50 mg tablet 50 mg PO QDAY PRN pain 07/04/24 10/23/24 losartan 25 mg tablet 25 mg PO DAILY PM 10/23/24 10/23/24 zolpidem 5 mg tablet 5 mg PO HS PRN insomnia 10/23/24 10/23/24 Allergies Allergies Allergy/AdvReac Type Severity Reaction Status Date / Time iodine Allergy Severe Anaphylaxis Verified 10/23/24 14:07 latex Allergy Unknown Verified 10/23/24 14:07 prednisone AdvReac Mild Emesis Verified 10/23/24 14:07 PFSH Active Problems All Active Problems (Updated 10/23/24 @ 21:02 by Yaya Britt DNP) CKD (chronic kidney disease) (Acute) Hyperkalemia (Acute) Aphasia (Acute) Hemiparesis (Acute) Acute cerebrovascular accident (CVA) (Acute) Acute renal insufficiency (Acute) Insomnia (Acute) Profound anemia (Acute) Gastric ulcer (Acute) Presence of sigmoid colostomy (Acute) Severe aortic stenosis (Chronic) Latex allergy (Chronic) Heart murmur (Chronic) Rectal carcinoma (Chronic) Medical History Medical History (Updated 10/23/24 @ 21:02 by Yaya Britt DNP) Colostomy in place Non-STEMI (non-ST elevated myocardial infarction) Abnormal urinalysis History of colorectal cancer Poor appetite GI bleeding PENNY (acute kidney injury) Hypernatremia Dehydration Surgical History Surgical History H/O colectomy Social History Social History Smoking Status: Never smoker Living arrangement: At home Living Condition: Alone Relationship: Level: Independent Home Mobility Equipment: Cane History of Abuse: No Substance Use: denies use POLST Patient has POLST: No Exam Exam Vital Signs: Vital Signs x48h Temp Pulse Resp BP Pulse Ox 10/23/24 19:15 106 H 27 H 157/98 H 95 10/23/24 18:09 36.5 C 106 H 26 H 139/88 H 94 10/23/24 16:03 102 H 19 143/89 H 93 10/23/24 15:45 102 H 16 140/89 H 93 10/23/24 15:38 102 H 20 145/91 H 91 L 10/23/24 15:15 101 H 18 145/91 H 94 Constitutional normal general appearance, distress noted (unable to speak, and seems bothered by this.) (mild) and average body habitus HENMT normocephalic and head/scalp atraumatic Eyes PERRL and EOMs intact bilaterally Neck/C-Spine supple and no carotid bruits Lymph no lymphadenopathy noted Chest inspection of chest normal and palpation of chest normal Respiratory breath sounds equal bilaterally, normal respiratory effort, no wheezes and no rales Cardiovascular heart rate abnormal (tachycardic) and peripheral pulses 2+ throughout Gastrointestinal abdomen soft to palpation and nontender to palpation Genitourinary external appearance normal Back/Pelvis no thoracic spine tenderness and no lumbar spine tenderness Neurology speech abnormality noted (aphasia, seeming to understand speech to her and nods yes/no, but no verbal) (expressive aphasia) Psychiatry cooperative Skin skin turgor normal Results Vitals Vitals: Vital Signs - 24 hr 10/23/24 13:35 10/23/24 13:55 10/23/24 14:09 Temperature 36.1 C L Temperature Source Rectal Pulse Rate 106 H 102 H 103 H Respiratory Rate 20 20 Blood Pressure 162/92 H 152/90 H 155/94 H O2 Saturation 92 97 94 O2 Source Room air Room air Room air Pain Intensity 0 10/23/24 14:37 10/23/24 15:08 10/23/24 15:15 Temperature Temperature Source Pulse Rate 102 H 103 H 101 H Respiratory Rate 16 14 18 Blood Pressure 151/95 H 149/96 H 145/91 H O2 Saturation 95 93 94 O2 Source Room air Room air Room air Pain Intensity 0 10/23/24 15:38 10/23/24 15:45 10/23/24 16:03 Temperature Temperature Source Pulse Rate 102 H 102 H 102 H Respiratory Rate 20 16 19 Blood Pressure 145/91 H 140/89 H 143/89 H O2 Saturation 91 L 93 93 O2 Source Room air Room air Room air Pain Intensity 10/23/24 18:09 10/23/24 19:15 Temperature 36.5 C Temperature Source Temporal Artery Scan Pulse Rate 106 H 106 H Respiratory Rate 26 H 27 H Blood Pressure 139/88 H 157/98 H O2 Saturation 94 95 O2 Source Nasal cannula Room air Pain Intensity 2 Oxygen O2 Source Room air Labs Labs: Laboratory Tests 10/23/24 10/23/24 10/23/24 14:30 14:30 19:34 WBC 12.0 H RBC 4.45 Hgb 13.3 Hct 44.7 MCV 100.4 H MCH 29.9 MCHC 29.8 L RDW 22.6 H Plt Count 346 MPV 9.4 Neut # (Auto) 10.8 H Lymph # (Auto) 0.5 L [place] # (Auto) 0.6 Eos # (Auto) 0.0 Baso # (Auto) 0.0 Absolute Nucleated RBC 0.00 Nucleated RBC % 0.0 Manual Slide Review Indicated Platelet Estimate NORMAL (130-450,000) Platelet Morphology NORMAL APPEARANCE RBC Morph Micro Appear 3+ ANISOCYTOSIS 1+ MACROCYTOSIS ESR 67 H Sodium 137 Potassium 5.3 H Chloride 101 Carbon Dioxide 22 Anion Gap 14.0 H BUN 22 H Creatinine 1.4 H Estimated GFR (MDRD) 36 L Glucose 117 H Calcium 9.8 Magnesium 1.8 Total Bilirubin 1.3 H AST 28 ALT 13 Alkaline Phosphatase 75 Total Creatine Kinase 376 H Total Protein 7.8 Albumin 3.8 Globulin 4.0 Albumin/Globulin Ratio 1.0 Lipase < 10 L Nasal Adenovirus (PCR) NOT DETECTED Nasal B. parapertussis DNA (PCR) NOT DETECTED Nasal Coronavir 229E PCR NOT DETECTED Nasal Coronavir HKU1 PCR NOT DETECTED Nasal Coronavir NL63 PCR NOT DETECTED Nasal Coronavir OC43 PCR NOT DETECTED Nasal Enterovir/Rhinovir PCR NOT DETECTED Nasal Influenza B PCR NOT DETECTED Nasal Influenza A PCR NOT DETECTED Nasal Parainfluen 1 PCR NOT DETECTED Nasal Parainfluen 2 PCR NOT DETECTED Nasal Parainfluen 3 PCR NOT DETECTED Nasal Parainfluen 4 PCR NOT DETECTED Nasal RSV (PCR) NOT DETECTED Nasal B.pertussis DNA PCR NOT DETECTED Nasal C.pneumoniae (PCR) NOT DETECTED Tank Human Metapneumo PCR NOT DETECTED Nasal M.pneumoniae (PCR) NOT DETECTED Nasal SARS-CoV-2 (PCR) NOT DETECTED PD Medical Decision Making ED course ED course: The patient presented with expressive aphasia and facial droop and right-sided weakness. Last time seen normal was between 6 and 7 PM last night. Subsequent information is the patient actually appears dressed for the day so has the possibility of onset of symptoms even 7 or 8 this morning. It still is a fair window out from time of presentation. The patient's daughter typically checks on the patient earlier in the morning but had had some medical problems and surgeries so did not check with the virgen ent as promptly. Subsequently the patient was checked upon late morning and found to have the aphasia and weakness. Brought to the ER for evaluation. Here she had the CT done which already showed some ischemic changes in the frontoparietal area. Given the time last seen normal with some CT changes already, that would place her well outside the window for thrombolytics and also timewise. Likely puts her outside the window for endovascular. However she does have stated on her chart anaphylactic reaction to contrast dye so I did not initially do an angiogram. Subsequently did give some Benadryl and steroids to open that opportunity. Ordered carotid ultrasounds. MRI was booked solid through at least 5:30 PM. I had ordered aspirin rectally but she has had colorectal surgery and a lot of scar tissue there so the rectum opening was difficult to find. Contacted stroke neurology and was connected with on-call neurology. They stated endovascular interventions for LVO can be up to 24 hours and so wanted us to try to evaluate that. However the neurologist talked with the interventional list who said the age and timing and presence of CT changes already negated endovascular intervention. The patient's family preference is for her to be at [facility]. They are boarding 20 patients and do not expect any bed availability today and unlikely tomorrow. With that knowledge, the family was amenable to admission here. I did contact the hospitalist here for evaluation. Discharge Plan Discharge Patient Disposition: [facility] DC/Xfer Condition: Stable Clinical Impression: Acute cerebrovascular accident (CVA), Hemiparesis, Aphasia Interventions: ED Admission Assessment Last Done: 10/23/24 20:19 NIHSS Level of Consciousness Level of consciousness: (0) Alert, Keenly responsive LOC Questions: (2) Answers neither correct LOC Commands: (0) Performs both correctly Gaze Best Gaze: (0) Normal Visual Visual: (0) No loss Facial Palsy Facial Palsy: (3) Complete paralysis Motor Arms (both separate) Motor Arm (right): (2) Some effort against gravity Motor Arm (left): (0) No drift Motor Legs (both separate) Motor Leg (right): (2) Some effort against gravity Motor Leg (left): (0) No drift Limb Ataxia Limb Ataxia: (2) Present in 2 limbs Sensory Sensory: (1) Uzcn-if-[id number] loss Best Language Best Language: (3) Mute, global aphasia Dysarthria Dysarthria: (1) [id number] dysarthria Extinction and Inattention (formally neg Extinction and inattention: (0) No abnormality Total Score/Results Total Score/Result: 16
[2024-10-23] MEDS ORDERED: iohexoL-300 100 ML VIAL ONE (14:03)
--- NOTE | 2024-10-23 14:15 | XRAY Report ---
PROCEDURE: XR Chest 1V INDICATIONS: acute weakness TECHNIQUE: One view of the chest was acquired. COMPARISON: 05/03/2024 FINDINGS: Surgical changes and devices: Right chest wall port tip projects over the low SVC. Lungs and pleura: Peribronchial cuffing with increased interstitial markings. No effusions or pneumo thorax. Mediastinum: Cardiomegaly. Normal contour otherwise. Bones and chest wall: No suspicious bony lesions. Overlying soft tissues appear unremarkable. IMPRESSION: Mild pulmonary edema. Reviewed by: Sean Martinez MD on 10/23/2024 2:14 PM PDT Approved by: Sean Martinez MD on 10/23/2024 2:14 PM PDT Station ID: [id number]
--- NOTE | 2024-10-23 14:28 | CT Report ---
PROCEDURE: CT Head WO INDICATIONS: acute hemiparesis TECHNIQUE: Noncontrast 4.5 mm thick angled axial sections acquired from the foramen magnum to the vertex. For r adiation dose reduction, the following was used: automated exposure control, adjustment of mA and/or kV according to patient size. COMPARISON: None. FINDINGS: Image quality: Excellent. CSF spaces: Basal cisterns are patent. No extra-axial fluid collections. Ventricles are normal in size and shape. Brain: No midline shift. No intracranial masses or hemorrhage. Loss of gomez-white matter differenti ation in the left frontal lobe. Skull and face: Calvarium and visualized facial bones are intact, without suspicious lesions. Sinuses: Visualized sinuses and mastoids are clear. IMPRESSION: Loss of gomez-white matter differentiation in the left frontal lobe. Findings may indicate acute infar ct. Recommend CTA or MRI. Reviewed by: Sean Martinez MD on 10/23/2024 2:26 PM PDT Approved by: Sean Martinez MD on 10/23/2024 2:26 PM PDT Station ID: [email or web address]
[2024-10-23 14:36] LABS: BASOPHILS % (AUTO) 0.3 %; EOSINOPHILS % (AUTO) 0.1 %; HCT - HEMATOCRIT 44.7 % (37.0-47.0); HGB - HEMOGLOBIN 13.3 g/dL (12.0-16.0); LYMPHOCYTES # (AUTO) 0.5 10^3/uL (1.5-3.5); LYMPHOCYTES % (AUTO) 3.9 %; MEAN CORPUSCULAR HEMOGLOBIN 29.9 pg (27.0-31.0); MEAN CORPUSCULAR HGB CONC 29.8 g/dL (32.0-36.0); MEAN CORPUSCULAR VOLUME 100.4 fL (81.0-99.0); MEAN PLATELET VOLUME 9.4 fL (7.9-10.8); MONOCYTES # (AUTO) 0.6 10^3/uL (0.0-1.0); MONOCYTES % (AUTO) 5.3 %; NEUTROPHILS # (AUTO) 10.8 10^3/uL (1.5-6.6); NEUTROPHILS % (AUTO) 89.9 %; PLT - PLATELET COUNT 346 10^3/uL (130-450); RED BLOOD COUNT 4.45 10^6/uL (4.20-5.40); RED CELL DISTRIBUTION WIDTH 22.6 % (12.0-15.0)
[2024-10-23 14:41] LABS: SLIDE REVIEW? Indicated
[2024-10-23 14:53] LABS: PLATELET ESTIMATE, MANUAL NORMAL (130-450,000) (NORMAL); PLATELET MORPHOLOGY NORMAL APPEARANCE (NORMAL)
[2024-10-23 15:14] LABS: ALBUMIN 3.8 g/dL (3.2-5.5); ALKALINE PHOSPHATASE 75 IU/L (42-121); ALT ALANINE AMINOTRANSFERASE 13 IU/L (10-60); AST ASPARTATE AMINOTRANSFERASE 28 IU/L (10-42); BILIRUBIN,TOTAL 1.3 mg/dL (0.2-1.0); BUN - BLOOD UREA NITROGEN 22 mg/dL (6-20); CALCIUM 9.8 mg/dL (8.5-10.3); CARBON DIOXIDE - CO2 22 mmol/L (21-32); CHLORIDE 101 mmol/L (101-111); CK- CREATINE KINASE 376 IU/L (30-223); CREATININE 1.4 mg/dL (0.6-1.3); GFR - MDRD 36 (>89); GLUCOSE 117 mg/dL (74-104); LIPASE < 10 U/L (11-82); MAGNESIUM 1.8 mg/dL (1.7-2.3); POTASSIUM 5.3 mmol/L (3.5-4.5); SODIUM 137 mmol/L (135-145); TOTAL PROTEIN 7.8 g/dL (6.4-8.9)
[2024-10-23] MEDS: ASPIRIN 300 MG SUPP PR STA (16:24)
[2024-10-23] MEDS: DEXAMETHASONE 10 MG/ML VIAL IVP STA (17:51)
[2024-10-23] MEDS: diphenhydrAMINE INJ 50 MG/ML VIAL IVP STA (17:51)
--- NOTE | 2024-10-23 19:39 | Ultrasound Report ---
PROCEDURE: US Carotid Doppler Complete INDICATIONS: acute hemiparesis TECHNIQUE: Color and pulse Doppler interrogation was performed of both carotid systems, with image documentation and velocity measurements. COMPARISON: CT head without contrast 10/23/2024 FINDINGS: Right side: Brachial blood pressure: 145/89 mm Hg. Common carotid artery peak systolic velocity: 42.3 cm/sec. Internal carotid artery peak systolic velocity: 75.7 cm/sec. Internal carotid artery end diastolic velocity: 22.5 cm/sec. External carotid artery peak systolic velocity: 42.9 cm/sec. ICA/CCA peak systolic ratio: 1.8. Berman scale imaging description: Moderate atherosclerotic plaque. Percent internal carotid artery stenosis: Less than 50 percent stenosis. Vertebral artery: Flow direction is antegrade. Left side: Brachial blood pressure: 139/88 mm Hg. Common carotid artery peak systolic velocity: 42.5 cm/sec. Internal carotid artery peak systolic velocity: 29.3 cm/sec. Internal carotid artery end diastolic velocity: 16.2 cm/sec. External carotid artery peak systolic velocity: 53.1 cm/sec. ICA/CCA peak systolic ratio: 1.2 . Berman scale imaging description: Mild atherosclerotic plaque. Percent internal carotid artery stenosis: Less than 50 percent stenosis. Vertebral artery: Flow direction is antegrade. IMPRESSION: 1. In the right internal carotid artery, there is less than 50 percent stenosis based on peak systoli c velocity criteria. 2. In the left internal carotid artery, there is less than 50 percent stenosis based on peak systolic velocity criteria. 3. Antegrade blood flow within the right vertebral artery. 4. Antegrade blood flow within the left vertebral artery. The estimate of stenosis included in the report of the imaging study was calculated using the [facility]-end orsed standards of carotid artery stenosis. Reviewed by: Fred Hernandez MD on 10/23/2024 7:37 PM PDT Approved by: Fred Hernandez MD on 10/23/2024 7:37 PM PDT Station ID: [id number]
[2024-10-23] MEDS: MORPHINE 10 MG/ML VIAL IVP STA (19:55)
--- OUTSIDE RECORDS SUMMARY | 2024-10-23 20:14 | EXTERNAL MEDICAL SUMMARY RPT | Continuity of Care Document ---
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 ANTIGEN [facility] 2024-08-25 11:00 [facility] NEGAT RAGHAVENDRA (missing) (missing) Result panel 2 LIPASE 2024-10-23 14:30 [email or web address] < 10 u/l As of January 2023 testing method has changed, this may include reference ranges. NUCLEATED RED BLOOD CELLS AUTO 2024-10-23 14:30 [facility] 0.0 /100wbc (missing) BASOPHILS # (AUTO) 2024-10-23 14:30 [facility] 0.0 10 3/ul (missing) EOSINOPHILS # (AUTO) 2024-10-23 14:30 [facility] 0.0 10 3/ul (missing) NRBC ABSOLUTE COUNT (AUTO) 2024-10-23 14:30 [email or web address] 0.00 x10 3/ul (missing) LYMPHOCYTES # (AUTO) 2024-10-23 14:30 [facility] 0.5 10 3/ul (missing) MONOCYTES # (AUTO) 2024-10-23 14:30 [facility] 0.6 10 3/ul (missing) RBC MORPHOLOGY (MULTIPLE) 2024-10-23 14:30 [facility] 1+ MACROCYTOSIS (missing ) (missing) ALBUMIN/GLOBULIN RATIO 2024-10-23 14:30 [facility] 1.0 (missing ) (missing) BILIRUBIN,TOTAL 2024-10-23 14:30 [facility] 1.3 mg/dl As of January 2023 testing method has changed, this may include reference ranges. CREATININE 2024-10-23 14:30 [facility] 1.4 mg/dl As of January 2023 testing method has changed, this may include reference ranges. MAGNESIUM 2024-10-23 14:30 [facility] 1.8 mg/dl As of January 2023 testing method has changed, this may include reference ranges. NEUTROPHILS # (AUTO) 2024-10-23 14:30 [facility] 10.8 10 3/ul (missing) MEAN CORPUSCULAR VOLUME 2024-10-23 14:30 [facility] 100.4 fl (missing) CHLORIDE 2024-10-23 14:30 [facility] 101 mmol/l As of January 2023 testing method has changed, this may include reference ranges. GLUCOSE 2024-10-23 14:30 [facility] 117 mg/dl As of January 2023 testing method has changed, this may include reference ranges. WHITE BLOOD COUNT 2024-10-23 14:30 [facility] 12.0 x10 3/ul (missing) ALT ALANINE AMINOTRANSFERASE 2024-10-23 14:30 [facility] 13 iu/l As of January 2023 testing method has changed, this may include reference ranges. HGB - HEMOGLOBIN 2024-10-23 14:30 [facility] 13.3 g/dl (missing) SODIUM 2024-10-23 14:30 [facility] 137 mmol/l As of January 2023 testing method has changed, this may include reference ranges. ANION GAP 2024-10-23 14:30 [facility] 14.0 (missing ) (missing) BUN - BLOOD UREA NITROGEN 2024-10-23 14:30 [facility] 22 mg/dl As of January 2023 testing method has changed, this may include reference ranges. CARBON DIOXIDE - CO2 2024-10-23 14:30 [facility] 22 mmol/l As of January 2023 testing method has changed, this may include reference ranges. RED CELL DISTRIBUTION WIDTH 2024-10-23 14:30 [facility] 22.6 % (missing) AST ASPARTATE AMINOTRANSFERASE 2024-10-23 14:30 [facility] 28 iu/l As of January 2023 testing method has changed, this may include reference ranges. MEAN CORPUSCULAR HGB CONC 2024-10-23 14:30 [facility] 29.8 g/dl (missing) MEAN CORPUSCULAR HEMOGLOBIN 2024-10-23 14:30 [facility] 29.9 pg (missing) RBC MORPHOLOGY (MULTIPLE) 2024-10-23 14:30 [facility] 3+ ANISOCYTOSIS (missing ) (missing) ALBUMIN 2024-10-23 14:30 [facility] 3.8 g/dl As of January 2023 testing method has changed, this may include reference ranges. PLT - PLATELET COUNT 2024-10-23 14:30 [facility] 346 10 3/ul (missing) GFR - MDRD 2024-10-23 14:30 [facility] 36 (missing ) Social History date description facility
[2024-10-23 20:41] LABS: CORONAVIRUS 229E-RESP PCR NOT DETECTED; CORONAVIRUS HKU1-RESP PCR NOT DETECTED; CORONAVIRUS NL63-RESP PCR NOT DETECTED; CORONAVIRUS OC43-RESP PCR NOT DETECTED; HUMAN METAPNEUMOVIRUS NOT DETECTED; INFLUENZA A- RESP PCR PANEL NOT DETECTED; INFLUENZA B - RESP PCR PANEL NOT DETECTED; PARAINFLUENZA VIRUS 1 NOT DETECTED; RHINOVIRUS/ENTEROVIRUS NOT DETECTED; SARS-CoV-2 -RESP PCR PANEL NOT DETECTED
[2024-10-23 20:42] LABS: B. PARAPERTUSSIS- RESP PCR PAN NOT DETECTED; B. PERTUSSIS- RESP PCR PANEL NOT DETECTED; C. PNEUMONIAE- RESP PCR PANEL NOT DETECTED; M. PNEUMONIAE- RESP PCR PANEL NOT DETECTED; PARAINFLUENZA VIRUS 2 NOT DETECTED; PARAINFLUENZA VIRUS 4 NOT DETECTED; RSV- RESP PCR PANEL NOT DETECTED
[2024-10-23] MEDS ORDERED: ONDANSETRON 4 MG/2 ML VIAL IVP PRN (20:45)
[2024-10-23] MEDS ORDERED: ONDANSETRON ODT 4 MG TABLET TL PRN (20:45)
[2024-10-23] MEDS ORDERED: PROCHLORPERAZINE 10 MG/2 ML VIAL IVP PRN (20:45)
--- NOTE | 2024-10-23 20:55 | HISTORY & PHYSICAL EXAMINATION ---
Chief Complaint Chief Complaint Chief Complaint: Altered mental status History of Present Illness History Obtained From History obtained from: Grandson at bedside Exam Limitations: Patient nonverbal History of Present Illness HPI Comment/Other: 84-year-old female PMH rectal carcinoma with colectomy and colostomy presented to the ER with altered mentation. She had a fall at home, and was brought in by EMS. Last known well was around 6:00 this morning. She was experiencing right sided weakness, facial droop, severe expressive aphasia In the ER, head CT was performed which showed concern for acute infarct of the left frontal lobe. She has a contrast allergy so after discussion with neurology decision was made to have her undergo carotid Doppler which shows less than 50% stenosis bilaterally. Case was discussed with neurology and with interventional radiology regarding transfer for intervention and it was decided that she was outside any therapeutic window. Hospitalist was contacted for admission for acute CVA Meds/Allgy Home Medications Ambulatory Orders Medication Instructions Recorded Confirmed capecitabine 500 mg tablet (Xeloda) 1,000 mg PO UD 03/30/22 10/23/24 cholecalciferol (vitamin D3) 50 50 mcg PO DAILY 05/03/24 10/23/24 mcg (2,000 unit) capsule lutein 20 mg capsule 20 mg PO DAILY 05/03/24 10/23/24 acetaminophen 500 mg tablet 500 mg PO Q6H PRN fever or pain 07/04/24 10/23/24 multivitamin (Daily Multi-Vitamin 1 tab PO QDAY 07/04/24 10/23/24 tablet) pantoprazole 40 mg tablet,delayed 40 mg PO QDAY 07/04/24 10/23/24 release tramadol 50 mg tablet 50 mg PO QDAY PRN pain 07/04/24 10/23/24 losartan 25 mg tablet 25 mg PO DAILY PM 10/23/24 10/23/24 zolpidem 5 mg tablet 5 mg PO HS PRN insomnia 10/23/24 10/23/24 Allergies Allergies Allergy/AdvReac Type Severity Reaction Status Date / Time iodine Allergy Severe Anaphylaxis Verified 10/23/24 14:07 latex Allergy Unknown Verified 10/23/24 14:07 prednisone AdvReac Mild Emesis Verified 10/23/24 14:07 PFS Active Problems All Active Problems (Updated 10/23/24 @ 21:02 by Yaya Britt DNP) CKD (chronic kidney disease) (Acute) Hyperkalemia (Acute) Aphasia (Acute) Hemiparesis (Acute) Acute cerebrovascular accident (CVA) (Acute) Acute renal insufficiency (Acute) Insomnia (Acute) Profound anemia (Acute) Gastric ulcer (Acute) Presence of sigmoid colostomy (Acute) Severe aortic stenosis (Chronic) Latex allergy (Chronic) Heart murmur (Chronic) Rectal carcinoma (Chronic) Medical History Medical History (Updated 10/23/24 @ 21:02 by Yaya Britt DNP) Colostomy in place Non-STEMI (non-ST elevated myocardial infarction) Abnormal urinalysis History of colorectal cancer Poor appetite GI bleeding PENNY (acute kidney injury) Hypernatremia Dehydration Surgical History Surgical History H/O colectomy Social History Social History Smoking Status: Unknown if ever smoked Living arrangement: At home Living Condition: Alone Relationship: Do you feel safe in your home environment?: Yes Suffered physical, verbal, emotional, or financial abuse?: No History of Abuse: No Substance Use: denies use POLST Patient has POLST: No Review of Systems Status of ROS: unobtainable due to mental status Exam Exam Vital Signs: Vital Signs x48h Temp Pulse Resp BP Pulse Ox 10/23/24 20:19 99 16 154/98 H 99 10/23/24 19:15 106 H 27 H 157/98 H 95 10/23/24 18:09 36.5 C 106 H 26 H 139/88 H 94 10/23/24 16:03 102 H 19 143/89 H 93 10/23/24 15:45 102 H 16 140/89 H 93 10/23/24 15:38 102 H 20 145/91 H 91 L 10/23/24 15:15 101 H 18 145/91 H 94 10/23/24 15:08 103 H 14 149/96 H 93 10/23/24 14:37 102 H 16 151/95 H 95 10/23/24 14:09 103 H 155/94 H 94 10/23/24 13:55 102 H 20 152/90 H 97 10/23/24 13:35 36.1 C L 106 H 20 162/92 H 92 Constitutional Agitated, grasping at air during interview HENMT normocephalic Eyes PERRL Not following directions, unable to assess movement Neck/C-Spine visual inspection normal Lymph no lymphadenopathy noted Chest inspection of chest normal Respiratory breath sounds equal bilaterally and normal respiratory effort Cardiovascular normal heart rate noted Gastrointestinal abdomen normal to inspection Extremities normal to inspection Wound on right foot Neurology Not following commands. Moves all extremities spontaneously. Family member at bedside says that he saw her brighten up when he told her stories involving other family members. She would not follow commands for me, but occasionally during discussion with her grandson at bedside she would look at me and nod Skin Scattered wounds on right side Conclusion/Plan Problem List (1) Acute cerebrovascular accident (CVA): Plan: Evidence of left frontal lobe damage on CT head Contrast allergy prevented CTA from being done Carotid Doppler negative Outside of therapeutic window PT/OT/ST MRI brain Echocardiogram Rectal aspirin not given due to postsurgical changes to anatomy I have ordered aspirin, Lipitor which can be given after swallow screen if she passes Family would very much prefer the patient be treated at [facility]. I reminded them of the very long wait times at that hospital and that if they wanted to go there and they would be boarding in the ED until a bed opened up. I believe such a transfer is not necessary, as she is outside of any therapeutic window for intervention and we have adequate ancillary services here for stroke workup. I told family member at bedside that the plan was to get an MRI and echo over the next few days and then at discharge we could determine where best to send her. Family agrees to this plan (2) CKD (chronic kidney disease): Plan: Her creatinine level has varied wildly on every historical value I can find. It is possible she has an acute kidney injury on top of chronic renal insufficiency. She also has an elevated CK level which is concerning for rhabdo. I have started LR at 100 and will recheck BMP in a.m. She also has a hyperkalemia. I am starting Lokelma for this and rechecking potassium level in the morning (3) Rectal carcinoma: Plan: She sees an oncologist at [facility] and is on oral chemo Consider discussion with oncology tomorrow regarding continuing her oral chemo, will likely hold while she is here Her cancer and colectomy have left her with anatomy contraindicating rectal aspirin and also difficulty obtaining urine sample Aggressive skin care per nursing Plan Admit inpatient med floor Full code Family reports she has a POLST form at home that reflects full code Her daughter Amy is her surrogate decision-maker Lab Results Lab results reviewed: Yes 10/23/24 14:30 10/23/24 14:30 Diagnostic Imaging Results Diagnostic Imaging Results: positive Final report reviewed Diagnostic Imaging Results Comments: CT head, carotid ultrasound as above
[2024-10-23] MEDS: LACTATED RINGERS 1,000 ML IV SCH (22:29)
[2024-10-23] MEDS: HYDROmorphone 0.5 MG/0.5 ML SYRINGE IVP PRN (23:03)
[2024-10-24] MEDS: SODIUM CHLORIDE FLUSH 0.9% 10 ML SYRINGE IVP SCH (00:19)
[2024-10-24 04:43] LABS: HCT - HEMATOCRIT 34.2 % (37.0-47.0); HGB - HEMOGLOBIN 10.9 g/dL (12.0-16.0); LYMPHOCYTES # (AUTO) 0.4 10^3/uL (1.5-3.5); LYMPHOCYTES % (AUTO) 13.9 %; MEAN CORPUSCULAR HEMOGLOBIN 29.6 pg (27.0-31.0); MEAN CORPUSCULAR HGB CONC 31.9 g/dL (32.0-36.0); MEAN CORPUSCULAR VOLUME 92.9 fL (81.0-99.0); MEAN PLATELET VOLUME 9.4 fL (7.9-10.8); MONOCYTES # (AUTO) 0.1 10^3/uL (0.0-1.0); MONOCYTES % (AUTO) 2.6 %; NEUTROPHILS # (AUTO) 2.6 10^3/uL (1.5-6.6); NEUTROPHILS % (AUTO) 83.2 %; PLT - PLATELET COUNT 317 10^3/uL (130-450); RED BLOOD COUNT 3.68 10^6/uL (4.20-5.40); RED CELL DISTRIBUTION WIDTH 22.4 % (12.0-15.0); WHITE BLOOD COUNT 3.1 x10^3/uL (4.8-10.8)
[2024-10-24 04:50] LABS: SLIDE REVIEW? Indicated
[2024-10-24 04:55] LABS: CALCIUM 9.1 mg/dL (8.5-10.3); CREATININE 1.3 mg/dL (0.6-1.3); POTASSIUM 5.4 mmol/L (3.5-4.5)
[2024-10-24 05:48] LABS: PLATELET ESTIMATE, MANUAL NORMAL (130-450,000) (NORMAL); PLATELET MORPHOLOGY NORMAL APPEARANCE (NORMAL)
[2024-10-24] MEDS: ASPIRIN EC 81 MG TABLET PO SCH (09:26)
[2024-10-24] MEDS: ENOXAPARIN 30 MG/0.3 ML SYRINGE SUBQ SCH (09:26)
--- NOTE | 2024-10-24 11:26 | PHARMACY PROGRESS NOTE ---
Best Possible Medication History Admit Date and Time: 10/23/241953 Home Medications Medication Instructions Recorded Confirmed Type capecitabine 500 mg tablet (Xeloda) 1,000 mg PO UD 03/30/22 10/23/24 History acetaminophen 500 mg tablet 500 mg PO Q6H PRN fever or pain 07/04/24 10/23/24 History multivitamin (Daily Multi-Vitamin 1 tab PO QDAY 07/04/24 10/23/24 History tablet) pantoprazole 40 mg tablet,delayed 40 mg PO QDAY 07/04/24 10/23/24 History release tramadol 50 mg tablet 50 mg PO QDAY PRN pain 07/04/24 10/23/24 History losartan 25 mg tablet 25 mg PO DAILY PM 10/23/24 10/23/24 History amitriptyline 10 mg tablet 10 mg PO .qhs 10/24/24 10/24/24 History Processed by: Pharmacy Medications reviewed in ED?: No Medication History completed: Yes Patient Interview: Pt unable to participate Secondary Source(s): Other family member and Insurance records [facility] Statement: Per athletic turf worker interview with patient's daughter and review of [facility] insurance records. As the person ultimately responsible for medication therapy, providers are able to order a medication from an existing home medication list in [facility] via the "Reconcile Routine" prior to Confirmation of that medication by family readiness support assistant. Such practice is discouraged except when the physician, in their clinical judgment, deems that a medical need exists for a medication without regard to previous use.
[2024-10-24] MEDS: INSULIN REGULAR, HUMAN 300 UNIT/3 ML PEN IVP ONE (11:49)
[2024-10-24] MEDS: DEXTROSE 50% ABBOJECT 25 GM/50 ML SYRINGE IVP ONE (11:49)
[2024-10-24] MEDS: CONCENTRATED ALBUTEROL NEB 2.5 MG/0.5 ML INH STA (12:46)
--- NOTE | 2024-10-24 14:35 | OT Plan of Care ---
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 Last seen normal 10/23 at 6- 7 pm. EMS arrived to pt on floor with R facial droop, weakness, and emesis. In the ER, head CT was performed which showed concern for acute infarct of the left frontal lobe. Case was discussed with neurology and with interventional radiology regarding transfer for intervention and it was decided that she was outside any therapeutic window. Adm for acute CVA. Met supine in bed, eyes open. L head turn and gaze preference, however will cross midline to stim and sustain for periods of time. Presenting with significant deficits in speech/language within receptive and expressive areas See [employer] eval for details. Attempted communication using Y/N pt with mostly Y head nods, no appropriate use of no nods to personally relevant questions. Appears more confused with abstract thought, however will perform automatic gestures Hi, Bye, scratching face, grabbing blanket etc. A&O difficult to assess at this time. Appears oriented to self. Follows 10% one step commands with heavy multisensory cues. Purposeful movement noted in all extremities, L more than R with MMT appears symmetrical. Noxious stim R UE : generalized response and L UE: WFL. Currently DEP mobility and ADLs 2/2 apraxia and anxiety at this time. Overall presents with decreased endurance, activity tolerance and ADL status. Will benefit from cont OT services during acute stay. Rec d/c to [facility] for aggressive therapy from all 3 rehab disciplines to address deficits and return to functional baseline. Goals - Activities of Daily Living Improve Upper Extremity Minimal Assist Dressing to: Improve Lower Extremity Minimal Assist Dressing to: Improve Grooming/Hygiene to: Minimal Assist Improve Bathing to: Minimal Assist Improve Toileting to: Minimal Assist Plan Treatment Frequency 1x/day Duration Until goals are met -Discharge Recommendations Discharge Location [facility] Transport Needs at Discharge BJose ManuelS
--- NOTE | 2024-10-24 14:50 | PT Plan of Care ---
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 Pt presents with R > L sided deficits in strength and mobility, however primary deficits present as mixed expressive/ receptive aphasia with limited ability to follow cues. Per pt's son, she had recent albuterol treatment and has been increasingly irritable since; some LUE fasciculations noted and HR 114. Sats WNL. Pt is able to visually track and cross midline but significantly reduced ability to hold gaze, attend to task or follow cueing. Inconsistent response to Y/N questions. Active movement of all 4 limbs noted with mild to moderate R sided weakness compared to L. No out of bed mobility assessment at time of eval d/t irritability and confusion. Plan to assess transfers and ambulation during next session and pending ability to participate, PT rec dc to [facility] as pt is far below baseline and has need for all 3 disciplines. Will update recs after full mobility assessment tomorrow. Patient/ Family Goals Patient/Family Goals Go home to cats Goals Improve bed mobility to: Modified Independent Improve supine to sit to: Minimal Assist Improve sit to stand to: Minimal Assist Improve pivot transfer ability Minimal Assist to: Improve sit to supine to: Minimal Assist Improve gait ability to: Min A Assistive Device Used: None,Front Wheeled Walker Improve Sitting Balance to: Good Improve Standing Balance to: Fair PT Plan of Care Frequency 1-2x/day Duration Until goals are met Discharge Recommendations Discharge Location [facility] Other TBD Transport Needs at Discharge B.L.S Other BLS d/t confusion, absent verbal communication, and unable to sit upright
[2024-10-24 14:53] LABS: HCT - HEMATOCRIT 35.7 % (37.0-47.0); LYMPHOCYTES # (AUTO) 0.5 10^3/uL (1.5-3.5); LYMPHOCYTES % (AUTO) 5.7 %; MEAN CORPUSCULAR HEMOGLOBIN 29.7 pg (27.0-31.0); MEAN CORPUSCULAR HGB CONC 30.8 g/dL (32.0-36.0); MEAN CORPUSCULAR VOLUME 96.5 fL (81.0-99.0); MEAN PLATELET VOLUME 9.3 fL (7.9-10.8); MONOCYTES # (AUTO) 0.6 10^3/uL (0.0-1.0); MONOCYTES % (AUTO) 7.2 %; NEUTROPHILS # (AUTO) 7.6 10^3/uL (1.5-6.6); NEUTROPHILS % (AUTO) 86.5 %; PLT - PLATELET COUNT 335 10^3/uL (130-450); RED CELL DISTRIBUTION WIDTH 22.5 % (12.0-15.0); WHITE BLOOD COUNT 8.8 x10^3/uL (4.8-10.8)
--- NOTE | 2024-10-24 14:53 | PROVIDER PROGRESS NOTE ---
Subjective Prog Note Date Prog Note Date: 10/24/24 Subjective Subjective: Slightly improved today. She is sitting in bed, remains aphasic but did well with speech therapy today. She was able to communicate some. She was also able to tolerate food and is currently on honey thick liquids. Her son is at the bedside. He states that she has been fighting stage IV colon cancer since 2018. She is on a palliative regimen at this point and has done very well with it. She had her last chemo infusion 8 days ago on October 16. She has overall done fairly well after chemo infusions and they do not impact her quality of life significantly. In the emergency department her CT of the head showed an acute left frontal lobe infarct; carotid Doppler done due to anaphylactic dye allergy shows less than 50% stenosis bilaterally. She was outside of any window for tPA and therefore was admitted here for stroke workup and therapy evaluation. Current Medications Current Medications Current Medications: Current Medications Generic Name Dose Route Start Last Admin Trade Name Freq PRN Reason Stop Dose Admin Acetaminophen 650 mg 10/23/24 20:45 Acetaminophen 325 Mg Tablet PO Q4HR PRN Pain 1 to 4, or Fever Aspirin 81 mg 10/24/24 09:00 10/24/24 09:26 Aspirin Ec 81 Mg Tablet PO 81 mg DAILY JAYLA Administration Atorvastatin Calcium 40 mg 10/24/24 21:00 Atorvastatin 40 Mg Tablet PO QPM JAYLA Enoxaparin Sodium 30 mg 10/24/24 09:00 10/24/24 09:26 Enoxaparin 30 Mg/0.3 Ml Syringe SUBQ 30 mg DAILY JAYLA Administration Hydromorphone HCl 0.2 mg 10/23/24 21:09 10/23/24 23:03 Hydromorphone 0.5 Mg/0.5 Ml Syringe IVP 0.2 mg Q2H PRN Administration Severe Pain (Level 7-10) Lactated Ringer's 1,000 mls @ 100 mls/hr 10/23/24 20:45 10/24/24 08:00 Lr IV 100 mls/hr .Q10H JAYLA Administration Morphine Sulfate 1 mg 10/23/24 20:45 Morphine 2 Mg/Ml Carpuject IVP Q2HR PRN Pain 8 to 10 Ondansetron HCl 4 mg 10/23/24 20:45 Ondansetron Odt 4 Mg Tablet TL Q6HR PRN Nausea / Vomiting Ondansetron HCl 4 mg 10/23/24 20:45 Ondansetron 4 Mg/2 Ml Vial IVP Q6HR PRN Nausea / Vomiting Prochlorperazine Edisylate 10 mg 10/23/24 20:45 Prochlorperazine 10 Mg/2 Ml Vial IVP Q6HR PRN Nausea / Vomiting Sodium Chloride 10 ml 10/23/24 20:45 Sodium Chloride Flush 0.9% 10 Ml Syringe IVP PRN PRN NEEDED PER PROVIDER ORDERS Sodium Chloride 10 ml 10/24/24 01:00 10/24/24 09:26 Sodium Chloride Flush 0.9% 10 Ml Syringe IVP 10 ml 0100,[id number],1700 JAYLA Administration Objective Vital Signs/Intake & Output Reviewed Vital Signs: Yes Vital Signs: Vital Signs x48h Temp Pulse Pulse Resp BP Pulse Ox 10/24/24 13:00 37.0 C 110 H 20 106/54 L 98 10/24/24 12:55 111 H 20 10/24/24 10:00 37 C 93 16 119/72 97 10/24/24 08:15 36.8 C 97 16 120/66 96 Intake & Output: Intake & Output 10/21/24 10/22/24 10/23/24 10/24/24 23:59 23:59 23:59 23:59 Intake Total 952 / 952 Balance 952 / 952 Weight (kg) 54 kg Objective General Appearance: positive No acute distress and Alert Eyes Bilateral: positive Other (Mild scleral icterus) ENT: positive ENT inspection nml Neck: positive Nml inspection Respiratory: positive Chest non-tender and Breath sounds nml Cardiovascular: positive Systolic murmur (Loud holosystolic murmur) Abdomen: positive Non-tender Skin: positive Color nml Extremities: positive Non-tender, No pedal edema and Joint swelling (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 ) Neurologic/Psychiatric: positive Other (right facial droop. aphasic. yes/no answers not always correct. moves all extremities and follows commands) Lab Results 10/24/24 14:47 10/24/24 14:47 Other Labs: Lab Results x24hrs 10/24/24 10/24/24 10/24/24 Range/Units 11:54 04:19 04:19 WBC (4.8-10.8) x10^3/uL RBC (4.20-5.40) 10^6/uL Hgb (12.0-16.0) g/dL Hct (37.0-47.0) % MCV (81.0-99.0) fL MCH (27.0-31.0) pg MCHC (32.0-36.0) g/dL RDW (12.0-15.0) % Plt Count (130-450) 10^3/uL MPV (7.9-10.8) fL Neut # (Auto) (1.5-6.6) 10^3/uL Lymph # (Auto) (1.5-3.5) 10^3/uL [place] # (Auto) (0.0-1.0) 10^3/uL Eos # (Auto) (0.0-0.7) 10^3/uL Baso # (Auto) (0.0-0.1) 10^3/uL Absolute Nucleated RBC x10^3/uL Nucleated RBC % /100WBC Manual Slide Review Platelet Estimate (NORMAL) Platelet Morphology (NORMAL) RBC Morph Micro Appear OVALOCYTES 1+ HYPOCHROMASIA (NORMAL) ESR (0-30) mm/Hr Sodium 136 (135-145) mmol/L Potassium 5.4 H (3.5-4.5) mmol/L Chloride 104 (101-111) mmol/L Carbon Dioxide 20 L (21-32) mmol/L Anion Gap 12.0 (6-13) BUN 24 H (6-20) mg/dL Creatinine 1.3 (0.6-1.3) mg/dL Estimated GFR (MDRD) 39 L (>89) Glucose 122 H (74-104) mg/dL POC Whole Bld Glucose 102 (70-100) mg/dL Calcium 9.1 (8.5-10.3) mg/dL Magnesium (1.7-2.3) mg/dL Total Bilirubin (0.2-1.0) mg/dL AST (10-42) IU/L ALT (10-60) IU/L Alkaline Phosphatase (42-121) IU/L Total Creatine Kinase (30-223) IU/L Total Protein (6.4-8.9) g/dL Albumin (3.2-5.5) g/dL Globulin (2.1-4.2) g/dL Albumin/Globulin Ratio (1.0-2.2) Lipase (11-82) U/L Nasal Adenovirus (PCR) Nasal B. parapertussis DNA (PCR) Nasal Coronavir 229E PCR Nasal Coronavir HKU1 PCR Nasal Coronavir NL63 PCR Nasal Coronavir OC43 PCR Nasal Enterovir/Rhinovir PCR Nasal Influenza B PCR Nasal Influenza A PCR Nasal Parainfluen 1 PCR Nasal Parainfluen 2 PCR Nasal Parainfluen 3 PCR Nasal Parainfluen 4 PCR Nasal RSV (PCR) Nasal B.pertussis DNA PCR Nasal C.pneumoniae (PCR) Tank Human Metapneumo PCR Nasal M.pneumoniae (PCR) Nasal SARS-CoV-2 (PCR) 10/24/24 10/23/24 10/23/24 Range/Units 04:19 19:34 14:30 WBC 3.1 L (4.8-10.8) x10^3/uL RBC 3.68 L (4.20-5.40) 10^6/uL Hgb 10.9 L (12.0-16.0) g/dL Hct 34.2 L (37.0-47.0) % MCV 92.9 (81.0-99.0) fL MCH 29.6 (27.0-31.0) pg MCHC 31.9 L (32.0-36.0) g/dL RDW 22.4 H (12.0-15.0) % Plt Count 317 (130-450) 10^3/uL MPV 9.4 (7.9-10.8) fL Neut # (Auto) 2.6 (1.5-6.6) 10^3/uL Lymph # (Auto) 0.4 L (1.5-3.5) 10^3/uL [place] # (Auto) 0.1 (0.0-1.0) 10^3/uL Eos # (Auto) 0.0 (0.0-0.7) 10^3/uL Baso # (Auto) 0.0 (0.0-0.1) 10^3/uL Absolute Nucleated RBC 0.00 x10^3/uL Nucleated RBC % 0.0 /100WBC Manual Slide Review Indicated Platelet Estimate NORMAL (130-450,000) (NORMAL) Platelet Morphology NORMAL APPEARANCE (NORMAL) RBC Morph Micro Appear 2+ ANISOCYTOSIS 1+ MACROCYTOSIS (NORMAL) ESR 67 H (0-30) mm/Hr Sodium 137 (135-145) mmol/L Potassium 5.3 H (3.5-4.5) mmol/L Chloride 101 (101-111) mmol/L Carbon Dioxide 22 (21-32) mmol/L Anion Gap 14.0 H (6-13) BUN 22 H (6-20) mg/dL Creatinine 1.4 H (0.6-1.3) mg/dL Estimated GFR (MDRD) 36 L (>89) Glucose 117 H (74-104) mg/dL POC Whole Bld Glucose (70-100) mg/dL Calcium 9.8 (8.5-10.3) mg/dL Magnesium 1.8 (1.7-2.3) mg/dL Total Bilirubin 1.3 H (0.2-1.0) mg/dL AST 28 (10-42) IU/L ALT 13 (10-60) IU/L Alkaline Phosphatase 75 (42-121) IU/L Total Creatine Kinase 376 H (30-223) IU/L Total Protein 7.8 (6.4-8.9) g/dL Albumin 3.8 (3.2-5.5) g/dL Globulin 4.0 (2.1-4.2) g/dL Albumin/Globulin Ratio 1.0 (1.0-2.2) Lipase < 10 L (11-82) U/L Nasal Adenovirus (PCR) NOT DETECTED Nasal B. parapertussis DNA (PCR) NOT DETECTED Nasal Coronavir 229E PCR NOT DETECTED Nasal Coronavir HKU1 PCR NOT DETECTED Nasal Coronavir NL63 PCR NOT DETECTED Nasal Coronavir OC43 PCR NOT DETECTED Nasal Enterovir/Rhinovir PCR NOT DETECTED Nasal Influenza B PCR NOT DETECTED Nasal Influenza A PCR NOT DETECTED Nasal Parainfluen 1 PCR NOT DETECTED Nasal Parainfluen 2 PCR NOT DETECTED Nasal Parainfluen 3 PCR NOT DETECTED Nasal Parainfluen 4 PCR NOT DETECTED Nasal RSV (PCR) NOT DETECTED Nasal B.pertussis DNA PCR NOT DETECTED Nasal C.pneumoniae (PCR) NOT DETECTED Tank Human Metapneumo PCR NOT DETECTED Nasal M.pneumoniae (PCR) NOT DETECTED Nasal SARS-CoV-2 (PCR) NOT DETECTED 10/23/24 Range/Units 14:30 WBC (4.8-10.8) x10^3/uL RBC (4.20-5.40) 10^6/uL Hgb (12.0-16.0) g/dL Hct (37.0-47.0) % MCV (81.0-99.0) fL MCH (27.0-31.0) pg MCHC (32.0-36.0) g/dL RDW (12.0-15.0) % Plt Count (130-450) 10^3/uL MPV (7.9-10.8) fL Neut # (Auto) 10.8 H (1.5-6.6) 10^3/uL Lymph # (Auto) 0.5 L (1.5-3.5) 10^3/uL [place] # (Auto) 0.6 (0.0-1.0) 10^3/uL Eos # (Auto) 0.0 (0.0-0.7) 10^3/uL Baso # (Auto) 0.0 (0.0-0.1) 10^3/uL Absolute Nucleated RBC 0.00 x10^3/uL Nucleated RBC % 0.0 /100WBC Manual Slide Review Platelet Estimate NORMAL (130-450,000) (NORMAL) Platelet Morphology NORMAL APPEARANCE (NORMAL) RBC Morph Micro Appear 3+ ANISOCYTOSIS (NORMAL) ESR (0-30) mm/Hr Sodium (135-145) mmol/L Potassium (3.5-4.5) mmol/L Chloride (101-111) mmol/L Carbon Dioxide (21-32) mmol/L Anion Gap (6-13) BUN (6-20) mg/dL Creatinine (0.6-1.3) mg/dL Estimated GFR (MDRD) (>89) Glucose (74-104) mg/dL POC Whole Bld Glucose (70-100) mg/dL Calcium (8.5-10.3) mg/dL Magnesium (1.7-2.3) mg/dL Total Bilirubin (0.2-1.0) mg/dL AST (10-42) IU/L ALT (10-60) IU/L Alkaline Phosphatase (42-121) IU/L Total Creatine Kinase (30-223) IU/L Total Protein (6.4-8.9) g/dL Albumin (3.2-5.5) g/dL Globulin (2.1-4.2) g/dL Albumin/Globulin Ratio (1.0-2.2) Lipase (11-82) U/L Nasal Adenovirus (PCR) Nasal B. parapertussis DNA (PCR) Nasal Coronavir 229E PCR Nasal Coronavir HKU1 PCR Nasal Coronavir NL63 PCR Nasal Coronavir OC43 PCR Nasal Enterovir/Rhinovir PCR Nasal Influenza B PCR Nasal Influenza A PCR Nasal Parainfluen 1 PCR Nasal Parainfluen 2 PCR Nasal Parainfluen 3 PCR Nasal Parainfluen 4 PCR Nasal RSV (PCR) Nasal B.pertussis DNA PCR Nasal C.pneumoniae (PCR) Tank Human Metapneumo PCR Nasal M.pneumoniae (PCR) Nasal SARS-CoV-2 (PCR) Assessment/Plan Problem List (1) Acute cerebrovascular accident (CVA): Impression: Left frontal CVA. No significant carotid stenosis Not a tPA candidate MRI of the brain is pending. This was ordered yesterday evening, however I do not have MRI available until 10/25/2024. PT note reviewed, appropriate for inpatient rehab facility. Patient has extensive home care benefit under some long-term care insurance that she purchased many years ago. This has been very helpful for her with her current chronic illness. She has no interest in going to longterm for rehab but may consent to inpatient rehab facility. Echocardiogram pending, patient with a heart murmur consistent with aortic stenosis on exam. Patient receives most of her care at [facility]. Unfortunately she was unable to be transferred to that facility but family and patient are satisfied at this time to continue to get their care here at [facility] and I see no indication for transfer. (2) CKD (chronic kidney disease): Impression: Renal function appears to be very close to baseline. I am rechecking BMP this afternoon out of concern for her elevated potassium level, see further plan below. I am concerned about her renal function today, she has made very little urine. This is a problem in regards to her hyper kalemia. I have ordered a 500cc fluid bolus, and will continue to monitor iwth BMP in the AM (3) Hyperkalemia: Impression: Potassium of 5.3 on admission, 5.4 this morning. Unclear etiology. repeat BMP This afternoon shows K = 4.0. I will repeat in AM and am hydrating the patient to increase renal output. . (4) Rectal carcinoma: Impression: Chronic and stable, status post surgical treatment in 2018 with colostomy. This was a rectal cancer. She is receiving palliative chemotherapy last chemotherapy received 10/16/2024. In light of chemo being received a week ago, I am wondering if this is why her white blood cell count was 12.0 on admission is 3.1 today. repeat CBC this afternoon shows normal WBC, 8.8 I have spent 52 minutes in the care of this patient today. This includes time [id number], review and ordering of diagnostic imaging and laboratory studies. Monitoring the patient's signs symptoms, evaluation of medication effectiveness and patient's response to treatment
[2024-10-24 14:59] LABS: SLIDE REVIEW? Indicated
[2024-10-24 15:11] LABS: PLATELET ESTIMATE, MANUAL NORMAL (130-450,000) (NORMAL); PLATELET MORPHOLOGY NORMAL APPEARANCE (NORMAL)
[2024-10-24 15:19] LABS: ALBUMIN 3.1 g/dL (3.2-5.5); CREATININE 1.3 mg/dL (0.6-1.3); TOTAL PROTEIN 6.3 g/dL (6.4-8.9)
[2024-10-24] MEDS: ACETAMINOPHEN 325 MG TABLET PO PRN (18:24)
[2024-10-24] MEDS: MORPHINE 2 MG/ML CARPUJECT IVP PRN (18:25)
[2024-10-24] MEDS: ATORVASTATIN 40 MG TABLET PO SCH (21:35)
[2024-10-25 05:14] LABS: HCT - HEMATOCRIT 34.3 % (37.0-47.0); HGB - HEMOGLOBIN 10.6 g/dL (12.0-16.0); LYMPHOCYTES # (AUTO) 0.8 10^3/uL (1.5-3.5); LYMPHOCYTES % (AUTO) 10.7 %; MEAN CORPUSCULAR HEMOGLOBIN 30.2 pg (27.0-31.0); MEAN CORPUSCULAR HGB CONC 30.9 g/dL (32.0-36.0); MEAN CORPUSCULAR VOLUME 97.7 fL (81.0-99.0); MEAN PLATELET VOLUME 9.7 fL (7.9-10.8); MONOCYTES # (AUTO) 0.9 10^3/uL (0.0-1.0); MONOCYTES % (AUTO) 11.9 %; NEUTROPHILS # (AUTO) 5.6 10^3/uL (1.5-6.6); PLT - PLATELET COUNT 281 10^3/uL (130-450); RED BLOOD COUNT 3.51 10^6/uL (4.20-5.40); RED CELL DISTRIBUTION WIDTH 22.7 % (12.0-15.0); WHITE BLOOD COUNT 7.2 x10^3/uL (4.8-10.8)
[2024-10-25 05:25] LABS: SLIDE REVIEW? Indicated
[2024-10-25 05:32] LABS: CALCIUM 8.8 mg/dL (8.5-10.3); CREATININE 1.1 mg/dL (0.6-1.3); POTASSIUM 4.9 mmol/L (3.5-4.5)
[2024-10-25] MEDS ORDERED: COD LIVER OIL/ZINC OXIDE 113 GM TUBE TOP PRN (06:00)
[2024-10-25 06:24] LABS: PLATELET ESTIMATE, MANUAL NORMAL (130-450,000) (NORMAL); PLATELET MORPHOLOGY NORMAL APPEARANCE (NORMAL)
[2024-10-25] MEDS: LACTATED RINGERS 1,000 ML IV ONE (07:45)
[2024-10-25] MEDS ORDERED: diltiaZEM INJ 5 MG/ML VIAL ONE (11:13)
[2024-10-25] MEDS: diltiaZEM INJ 5 MG/ML VIAL IVP ONE (11:13)
--- NOTE | 2024-10-25 11:26 | MISCELLANEOUS PROVIDER NOTE ---
Miscellaneous Provider Note - Note: Provider informed by [facility] that patient's heart rate was in the 170s to 180s. Patient was seen, her heart rate was sustaining in the 180s. Telemetry was reading SVT. Blood pressure was stable. Patient was awake and alert. She has expressive aphasia. Initially, vagal maneuvers were attempted. Patient was advised to blow into a syringe, ice packs were administered, and patient was advised to bear down like she was having a bowel movement. Heart rate improved from 180s to 150s. EKG was repeated, and it did show atrial fibrillation with RVR. Blood pressure remained stable during this whole time, 110/60. Patient is a poor historian, but denied any chest pain. She did state that she was feeling some palpitations. Unclear if she has a history of atrial fibrillation. Patient was given 10 mg of Cardizem. Heart rate improved to 150s to 100. Blood pressure was stable once again. Patient will be started on a Cardizem drip, transferred to the ICU. Further conversations with neurology will occur about starting anticoagulation as patient has had a stroke and there is a risk of hemorrhagic conversion.
[2024-10-25] MEDS: diltiaZEM INJ 125 MG in DEXTROSE 5% 100 ML IV SCH (11:46)
[2024-10-25] MEDS ORDERED: METOPROLOL 5 MG/5 ML VIAL IVP ONE (12:20)
[2024-10-25] MEDS: METOPROLOL 5 MG/5 ML VIAL IVP STA (12:25)
[2024-10-25] MEDS: DIGOXIN 500 MCG/2 ML AMP IVP SCH (12:25)
[2024-10-25] MEDS: SODIUM CHLORIDE 0.9% 1,000 ML IV SCH (12:28)
[2024-10-25] MEDS: SODIUM ZIRCONIUM CYCLOSILICATE 5 GM PACKET PO ONE (12:29)
--- NOTE | 2024-10-25 13:16 | CONSULTATION NOTE ---
Referring Provider Name of Referring Provider:: JENNIFER Aquino Consult Date: 10/25/24 Chief Complaint Chief Complaint Chief Complaint: stroke History of Present Illness Admitted From Admitted From:: ER History Obtained From Records Reviewed: hospital Exam Limitations: patient aphasic History of Present Illness HPI Comment/Other: 84-year-old woman with complex and severe medical history. History of rectal cancer treated with radiation and colostomy. No abdominal imaging here Now admitted for stroke and aphasia. She is in the ICU for further management. Her urine output is not able to be assessed easily given her significant anatomical variation. Her baseline kidney function is a GFR of between 10 and 39. Her GFR here is 47 Given her ICU status the medical team was hoping to obtain strict ins and outs via catheter however she has significant radiation changes to her perineum and per urethra and meatus cannot be identified. Urology was consulted [facility] Active Problems All Active Problems (Updated 10/23/24 @ 21:02 by Yaya Britt DNP) CKD (chronic kidney disease) (Acute) Hyperkalemia (Acute) Aphasia (Acute) Hemiparesis (Acute) Acute cerebrovascular accident (CVA) (Acute) Acute renal insufficiency (Acute) Insomnia (Acute) Profound anemia (Acute) Gastric ulcer (Acute) Presence of sigmoid colostomy (Acute) Severe aortic stenosis (Chronic) Latex allergy (Chronic) Heart murmur (Chronic) Rectal carcinoma (Chronic) Medical History Medical History (Updated 10/23/24 @ 21:02 by Yaya Britt DNP) Colostomy in place Non-STEMI (non-ST elevated myocardial infarction) Abnormal urinalysis History of colorectal cancer Poor appetite GI bleeding PENNY (acute kidney injury) Hypernatremia Dehydration Surgical History Surgical History H/O colectomy Social History Social History Smoking Status: Never smoker Living arrangement: At home Living Condition: Alone Relationship: Child Level: Independent Home Mobility Equipment: Cane and Walker History of Abuse: No Substance Use: denies use POLST Patient has POLST: No Meds/Allgy Home Medications Ambulatory Orders Medication Instructions Recorded Confirmed capecitabine 500 mg tablet (Xeloda) 1,000 mg PO UD 03/30/22 10/23/24 acetaminophen 500 mg tablet 500 mg PO Q6H PRN fever or pain 07/04/24 10/23/24 multivitamin (Daily Multi-Vitamin 1 tab PO QDAY 07/04/24 10/23/24 tablet) pantoprazole 40 mg tablet,delayed 40 mg PO QDAY 07/04/24 10/23/24 release tramadol 50 mg tablet 50 mg PO QDAY PRN pain 07/04/24 10/23/24 losartan 25 mg tablet 25 mg PO DAILY PM 10/23/24 10/23/24 amitriptyline 10 mg tablet 10 mg PO .qhs 10/24/24 10/24/24 Allergies Allergies Allergy/AdvReac Type Severity Reaction Status Date / Time iodine Allergy Severe Anaphylaxis Verified 10/23/24 14:07 latex Allergy Unknown Verified 10/23/24 14:07 prednisone AdvReac Mild Emesis Verified 10/23/24 14:07 Results Lab Results 10/25/24 05:05 10/25/24 05:05 Other Lab Results: Lab Results x24hrs 10/25/24 10/25/24 10/24/24 Range/Units 05:05 05:05 14:47 WBC 7.2 (4.8-10.8) x10^3/uL RBC 3.51 L (4.20-5.40) 10^6/uL Hgb 10.6 L (12.0-16.0) g/dL Hct 34.3 L (37.0-47.0) % MCV 97.7 (81.0-99.0) fL MCH 30.2 (27.0-31.0) pg MCHC 30.9 L (32.0-36.0) g/dL RDW 22.7 H (12.0-15.0) % Plt Count 281 (130-450) 10^3/uL MPV 9.7 (7.9-10.8) fL Neut # (Auto) 5.6 (1.5-6.6) 10^3/uL Lymph # (Auto) 0.8 L (1.5-3.5) 10^3/uL [place] # (Auto) 0.9 (0.0-1.0) 10^3/uL Eos # (Auto) 0.0 (0.0-0.7) 10^3/uL Baso # (Auto) 0.0 (0.0-0.1) 10^3/uL Absolute Nucleated RBC 0.00 x10^3/uL Nucleated RBC % 0.0 /100WBC Manual Slide Review Indicated Platelet Estimate NORMAL (130-450,000) (NORMAL) Platelet Morphology NORMAL APPEARANCE (NORMAL) RBC Morph Micro Appear 1+ HYPOCHROMASIA 2+ ANISOCYTOSIS 3+ ANISOCYTOSIS (NORMAL) Sodium 138 137 (135-145) mmol/L Potassium 4.9 H 4.0 (3.5-4.5) mmol/L Chloride 105 103 (101-111) mmol/L Carbon Dioxide 24 20 L (21-32) mmol/L Anion Gap 9.0 14.0 H (6-13) BUN 28 H 26 H (6-20) mg/dL Creatinine 1.1 1.3 (0.6-1.3) mg/dL Estimated GFR (MDRD) 47 L 39 L (>89) Glucose 113 H 160 H (74-104) mg/dL Calcium 8.8 9.0 (8.5-10.3) mg/dL Total Bilirubin 1.0 (0.2-1.0) mg/dL AST 24 (10-42) IU/L ALT 12 (10-60) IU/L Alkaline Phosphatase 55 (42-121) IU/L Total Protein 6.3 L (6.4-8.9) g/dL Albumin 3.1 L (3.2-5.5) g/dL Globulin 3.2 (2.1-4.2) g/dL Albumin/Globulin Ratio 1.0 (1.0-2.2) 10/24/24 10/24/24 Range/Units 14:47 14:47 WBC 8.8 (4.8-10.8) x10^3/uL RBC 3.70 L (4.20-5.40) 10^6/uL Hgb 11.0 L (12.0-16.0) g/dL Hct 35.7 L (37.0-47.0) % MCV 96.5 (81.0-99.0) fL MCH 29.7 (27.0-31.0) pg MCHC 30.8 L (32.0-36.0) g/dL RDW 22.5 H (12.0-15.0) % Plt Count 335 (130-450) 10^3/uL MPV 9.3 (7.9-10.8) fL Neut # (Auto) 7.6 H (1.5-6.6) 10^3/uL Lymph # (Auto) 0.5 L (1.5-3.5) 10^3/uL [place] # (Auto) 0.6 (0.0-1.0) 10^3/uL Eos # (Auto) 0.0 (0.0-0.7) 10^3/uL Baso # (Auto) 0.0 (0.0-0.1) 10^3/uL Absolute Nucleated RBC 0.00 x10^3/uL Nucleated RBC % 0.0 /100WBC Manual Slide Review Indicated Platelet Estimate NORMAL (130-450,000) (NORMAL) Platelet Morphology NORMAL APPEARANCE (NORMAL) RBC Morph Micro Appear 2+ OVALOCYTES 1+ HYPOCHROMASIA (NORMAL) Sodium (135-145) mmol/L Potassium (3.5-4.5) mmol/L Chloride (101-111) mmol/L Carbon Dioxide (21-32) mmol/L Anion Gap (6-13) BUN (6-20) mg/dL Creatinine (0.6-1.3) mg/dL Estimated GFR (MDRD) (>89) Glucose (74-104) mg/dL Calcium (8.5-10.3) mg/dL Total Bilirubin (0.2-1.0) mg/dL AST (10-42) IU/L ALT (10-60) IU/L Alkaline Phosphatase (42-121) IU/L Total Protein (6.4-8.9) g/dL Albumin (3.2-5.5) g/dL Globulin (2.1-4.2) g/dL Albumin/Globulin Ratio (1.0-2.2) Conclusion and Plan Diagnosis Diagnosis: Aberrant anatomy Plan Plan: She has significant anatomic variation. She is able to answer yes/no questions. She think she does urinate from her wound site of her perineum. She likely does have at least a fistulous connection there. Right now to the best of her knowledge she is emptying her bladder and has normal renal function. I doubt she be able to get anything into her bladder without a anesthesia procedure or perhaps an open suprapubic tube placement. At this point in time I think the risks faraway the benefits for this. Her for renal function changes or other critical concerns occur then we could reassess that as of now I would have her with permissive drainage of urine per her wound site Exam Exam Vital Signs: Vital Signs x48h Temp Pulse Pulse Resp BP BP Pulse Ox 10/25/24 12:25 139 H 110/73 10/25/24 12:25 137 H 10/25/24 11:46 141 H 109/76 10/25/24 11:36 132 H 20 114/74 96 10/25/24 11:14 136 H 18 112/71 95 10/25/24 11:13 166 H 10/25/24 11:00 179 H 20 111/77 95 10/25/24 08:28 36.9 C 107 H 20 125/87 96 NAD JENNIFER Aquino present thin aphasic colostomy in place Significant wound of her perineum with almost complete collapse and breakdown of skin and deeper layers from her clitoris to her anus. She has about a 4 inch deep wound in her perineum. Exploration with a [place] catheter shows no evidence of urethral meatus that could be easily identified
--- NOTE | 2024-10-25 14:11 | OT Plan of Care ---
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 Initial x-ray showed fracture of left humerus shaft, she underwent operative fixation on 10/21. Later that evening, she developed an interval periprosthetic fracture above the fixation plate. ORIF 10/24, now NWB to L UE 4-6 wks Sling for comfort. Distal ROM and pendulums per tolerance. Met sitting in chair A&O to self, place, date labile and mildly confused. L UE in sling, samuel wrapped in cross body position. Hand- wrist ROM and sensation WFL Unable to assess elbow at this time. Pt with fair carryover of NWB during session requiring cues. Performed sit to stand and ambulation 100ft household distances CGA Toielting CGA with cues for use of GB and safety during clothing management using R UE. Currently MOD A UB, MIN A LB dressing including sling donning/doffing Will benefit from casandra techniques and education. Unable to educate on elbow ROM per surgical protocol 2/2 pts difficulty maintaining WB and forgetfulness. Will require cont education and training. Overall presents with decreased endurance, activity tolerance and ADL status. Will benefit from cont OT services during acute stay. Rec d/c to SNF at this time for further progression of safe indp. Goals - Activities of Daily Living Improve Upper Extremity Modified Independent Dressing to: Improve Lower Extremity Modified Independent Dressing to: Improve Grooming/Hygiene to: Modified Independent Improve Bathing to: Modified Independent Improve Toileting to: Modified Independent Plan Treatment Frequency 1x/day Duration Until goals are met -Discharge Recommendations Discharge Location Alf Facility Transport Needs at Discharge B.L.[facility] Comment If refuses rec home with 24 hr supervision and HHOT/PT
--- NOTE | 2024-10-25 14:33 | PROVIDER PROGRESS NOTE ---
Subjective Prog Note Date Prog Note Date: 10/25/24 Subjective Subjective: She remains aphasic. continues to work with ST. She is not appropriate for PT and OT today, has had onset of tachycardia. Current Medications Current Medications Current Medications: Current Medications Generic Name Dose Route Start Last Admin Trade Name Freq PRN Reason Stop Dose Admin Acetaminophen 650 mg 10/23/24 20:45 10/25/24 08:42 Acetaminophen 325 Mg Tablet PO 650 mg Q4HR PRN Administration Pain 1 to 4, or Fever Aspirin 81 mg 10/24/24 09:00 10/25/24 08:42 Aspirin Ec 81 Mg Tablet PO 81 mg DAILY JAYLA Administration Atorvastatin Calcium 40 mg 10/24/24 21:00 10/24/24 21:35 Atorvastatin 40 Mg Tablet PO 40 mg QPM JAYLA Administration Digoxin 250 mcg 10/25/24 13:00 10/25/24 12:25 Digoxin 500 Mcg/2 Ml Amp IVP 10/26/24 06:01 250 mcg Q6HR JAYLA Administration Enoxaparin Sodium 30 mg 10/24/24 09:00 10/25/24 08:42 Enoxaparin 30 Mg/0.3 Ml Syringe SUBQ 30 mg DAILY JAYLA Administration Hydromorphone HCl 0.2 mg 10/23/24 21:09 10/23/24 23:03 Hydromorphone 0.5 Mg/0.5 Ml Syringe IVP 0.2 mg Q2H PRN Administration Severe Pain (Level 7-10) Diltiazem HCl 125 mg/ Dextrose 125 mls @ 5 mls/hr 10/25/24 12:00 10/25/24 12:52 IV 10 mg/hr .Q25H JAYLA 10 mls/hr Titration Protocol 5 MG/HR Sodium Chloride 1,000 mls @ 100 mls/hr 10/25/24 12:00 10/25/24 12:28 Normal Saline 0.9% IV 100 mls/hr .Q10H JAYLA Administration Morphine Sulfate 1 mg 10/23/24 20:45 10/24/24 18:25 Morphine 2 Mg/Ml Carpuject IVP 1 mg Q2HR PRN Administration Pain 8 to 10 Ondansetron HCl 4 mg 10/23/24 20:45 Ondansetron Odt 4 Mg Tablet TL Q6HR PRN Nausea / Vomiting Ondansetron HCl 4 mg 10/23/24 20:45 Ondansetron 4 Mg/2 Ml Vial IVP Q6HR PRN Nausea / Vomiting Prochlorperazine Edisylate 10 mg 10/23/24 20:45 Prochlorperazine 10 Mg/2 Ml Vial IVP Q6HR PRN Nausea / Vomiting Sodium Chloride 10 ml 10/23/24 20:45 Sodium Chloride Flush 0.9% 10 Ml Syringe IVP PRN PRN NEEDED PER PROVIDER ORDERS Sodium Chloride 10 ml 10/24/24 01:00 10/25/24 08:42 Sodium Chloride Flush 0.9% 10 Ml Syringe IVP 10 ml 0100,0900,1700 JAYLA Administration Zinc Oxide 113 gm 10/25/24 06:00 Cod Liver Oil/Zinc Oxide 113 Gm Tube TOP PRN PRN Skin Care Objective Vital Signs/Intake & Output Reviewed Vital Signs: Yes Vital Signs: Vital Signs x48h Temp Pulse Pulse Resp BP BP Pulse Ox 10/25/24 14:00 80 20 133/77 H 97 10/25/24 13:00 88 19 134/75 H 96 10/25/24 13:00 79 20 115/79 98 10/25/24 12:25 139 H 110/73 10/25/24 12:25 137 H 10/25/24 11:46 141 H 109/76 10/25/24 11:36 132 H 20 114/74 96 10/25/24 11:14 136 H 18 112/71 95 10/25/24 11:13 166 H 10/25/24 11:00 179 H 20 111/77 95 10/25/24 08:28 36.9 C 107 H 20 125/87 96 Intake & Output: Intake & Output 10/22/24 10/23/24 10/24/24 10/25/24 23:59 23:59 23:59 23:59 Intake Total 1951 1723 / 1723 Output Total 50 / 50 210 / 210 Balance 1901 / 1901 1513 / 1513 Weight (kg) 54 kg Objective General Appearance: positive No acute distress and Alert Eyes Bilateral: positive Other (Mild scleral icterus) ENT: positive ENT inspection nml Neck: positive Nml inspection Respiratory: positive Chest non-tender and Breath sounds nml Cardiovascular: positive Systolic murmur (Loud holosystolic murmur) Abdomen: positive Non-tender Skin: positive Color nml Extremities: positive Non-tender, No pedal edema and Joint swelling (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 ) Neurologic/Psychiatric: positive Other (right facial droop. aphasic. yes/no answers not always correct. moves all extremities and follows commands) Lab Results 10/25/24 05:05 10/25/24 05:05 Other Labs: Lab Results x24hrs 10/25/24 10/25/24 10/24/24 Range/Units 05:05 05:05 14:47 WBC 7.2 (4.8-10.8) x10^3/uL RBC 3.51 L (4.20-5.40) 10^6/uL Hgb 10.6 L (12.0-16.0) g/dL Hct 34.3 L (37.0-47.0) % MCV 97.7 (81.0-99.0) fL MCH 30.2 (27.0-31.0) pg MCHC 30.9 L (32.0-36.0) g/dL RDW 22.7 H (12.0-15.0) % Plt Count 281 (130-450) 10^3/uL MPV 9.7 (7.9-10.8) fL Neut # (Auto) 5.6 (1.5-6.6) 10^3/uL Lymph # (Auto) 0.8 L (1.5-3.5) 10^3/uL Carlisle # (Auto) 0.9 (0.0-1.0) 10^3/uL Eos # (Auto) 0.0 (0.0-0.7) 10^3/uL Baso # (Auto) 0.0 (0.0-0.1) 10^3/uL Absolute Nucleated RBC 0.00 x10^3/uL Nucleated RBC % 0.0 /100WBC Manual Slide Review Indicated Platelet Estimate NORMAL (130-450,000) (NORMAL) Platelet Morphology NORMAL APPEARANCE (NORMAL) RBC Morph Micro Appear 1+ HYPOCHROMASIA 2+ ANISOCYTOSIS 3+ ANISOCYTOSIS (NORMAL) Sodium 138 137 (135-145) mmol/L Potassium 4.9 H 4.0 (3.5-4.5) mmol/L Chloride 105 103 (101-111) mmol/L Carbon Dioxide 24 20 L (21-32) mmol/L Anion Gap 9.0 14.0 H (6-13) BUN 28 H 26 H (6-20) mg/dL Creatinine 1.1 1.3 (0.6-1.3) mg/dL Estimated GFR (MDRD) 47 L 39 L (>89) Glucose 113 H 160 H (74-104) mg/dL Calcium 8.8 9.0 (8.5-10.3) mg/dL Total Bilirubin 1.0 (0.2-1.0) mg/dL AST 24 (10-42) IU/L ALT 12 (10-60) IU/L Alkaline Phosphatase 55 (42-121) IU/L Total Protein 6.3 L (6.4-8.9) g/dL Albumin 3.1 L (3.2-5.5) g/dL Globulin 3.2 (2.1-4.2) g/dL Albumin/Globulin Ratio 1.0 (1.0-2.2) 10/24/24 10/24/24 Range/Units 14:47 14:47 WBC 8.8 (4.8-10.8) x10^3/uL RBC 3.70 L (4.20-5.40) 10^6/uL Hgb 11.0 L (12.0-16.0) g/dL Hct 35.7 L (37.0-47.0) % MCV 96.5 (81.0-99.0) fL MCH 29.7 (27.0-31.0) pg MCHC 30.8 L (32.0-36.0) g/dL RDW 22.5 H (12.0-15.0) % Plt Count 335 (130-450) 10^3/uL MPV 9.3 (7.9-10.8) fL Neut # (Auto) 7.6 H (1.5-6.6) 10^3/uL Lymph # (Auto) 0.5 L (1.5-3.5) 10^3/uL Carlisle # (Auto) 0.6 (0.0-1.0) 10^3/uL Eos # (Auto) 0.0 (0.0-0.7) 10^3/uL Baso # (Auto) 0.0 (0.0-0.1) 10^3/uL Absolute Nucleated RBC 0.00 x10^3/uL Nucleated RBC % 0.0 /100WBC Manual Slide Review Indicated Platelet Estimate NORMAL (130-450,000) (NORMAL) Platelet Morphology NORMAL APPEARANCE (NORMAL) RBC Morph Micro Appear 2+ OVALOCYTES 1+ HYPOCHROMASIA (NORMAL) Sodium (135-145) mmol/L Potassium (3.5-4.5) mmol/L Chloride (101-111) mmol/L Carbon Dioxide (21-32) mmol/L Anion Gap (6-13) BUN (6-20) mg/dL Creatinine (0.6-1.3) mg/dL Estimated GFR (MDRD) (>89) Glucose (74-104) mg/dL Calcium (8.5-10.3) mg/dL Total Bilirubin (0.2-1.0) mg/dL AST (10-42) IU/L ALT (10-60) IU/L Alkaline Phosphatase (42-121) IU/L Total Protein (6.4-8.9) g/dL Albumin (3.2-5.5) g/dL Globulin (2.1-4.2) g/dL Albumin/Globulin Ratio (1.0-2.2) Assessment/Plan Problem List (1) Atrial fibrillation with RVR: Impression: heart rate in the low 100's yesterday, then crept up overnight, and was as high at 179 this AM, EKG showed SVT came down somewhat with vagal maneuvers, then was started on diltiazem ,10mg IVP then drip, which is controlling HR with occasional metoprolol. a fib is a new diagnosis for her. Please see discussion below regarding anticoagulation treatment. echo is read today, her EF is lower than our last study in 2021, but her aortic stenosis is not considerably worse. Will need out patient cardiology followup. rate lowering medications have been effective. (2) Acute cerebrovascular accident (CVA): Impression: I called telestroke neurology at [place]. I spoke with Dr. Reilly. I discussed this new diagnosis of atrial fibrillation in light of her recent left frontal CVA. Dr. Solares stated that the CVA was moderate-sized and that she would recommend waiting 5 days to start anticoagulation as long as there is no hemorrhagic conversion at this time. We will be obtaining an MRI of the brain in the near future although not while she is this hemodynamically unstable. Assuming there is no hemorrhagic conversion of the CVA we will start anticoagulation at about 5 days after the event. At the time that we start Eliquis we will stop the aspirin. Dr. Reilly recommends 2.5 mg of Eliquis p.o. twice daily given the patient's age and size. Renal function was discussed with Dr. Reilly, it is normal. (3) CKD (chronic kidney disease): Impression: Renal function normal. urine output is low and difficult to quantify. She had formal bladder US today, and there is urine in the bladder without evidence of significant retention, nor evidence of fistula formation. (4) Hyperkalemia: Impression: Potassium of 5.3 on admission, 4.9 this morning. Unclear etiology. repeat BMP I have given Lokelma and will repeat BMP in the AM. (5) Rectal carcinoma: Impression: Stage 4. ongoing treatment. She is on palliative chemo. 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 (6) Low urine output: Impression: diffcult to quantify intake and output. Purewick is not effective. I examined the perineum and attempted to place a bolton today. severe disfigurement. I was not able to place bolton,called Dr Cadet, urology to attempt, also not successful. severe post radiation changes. Patient does not have rectum/anus. there is an area with broken skin where the vagina was, and a large cavity. We will pack this with saline damp to dry and try to absorb urine. She is able to urinate at home, so it does not appear that she has some sort of fistula between her bowels and her urinary tract. I think that we are not able to adequately capture urine output due to anatomical deformities. I have placed a request to [facility] for a report from her last CT A/P to further define anatomy. I have spent 80 minutes in the care of this patient today. This includes time [id number], review and ordering of diagnostic imaging and laboratory studies and consultation with other providers. Monitoring the patient's signs symptoms, evaluation of medication effectiveness and patient's response to treatment.
--- NOTE | 2024-10-25 15:31 | ECHO Report ---
Version: 1 Study ID: [id number] [address] [place] [address] Adult Echocardiogram Report Name: TG ADDISON Study Date: 10/24/2024, 10: 43 AM BP : 119 / 72 mmHg Patient Location: [facility]^01 HR: 93 bpm : 1940 (MM/DD/YYYY) Gender: Female He ight: 63 in Age: 84 Years Weight: 119.05 lb Reason For Study: Stroke workup History: Echo 03/30/22 normal EF, Severe Stenosis, CKD, rectal carcinoma, hyperkalemia Procedure: A complete two-dimensional transthoracic echocardiogram was performed (2D, M-mode, Doppler and color flow Doppler). Bubble study. This study was requested as a STAT/emergent study. The study was done with the patient in the supine position, due to inability to lie on the left side. Patient was nonverbal and in a lot of pain. The u nderlying rhythm was sinus. Interpretation Summary The left ventricle is normal in size. There is mild concentric increase in the wall thickness of the left ventricle. The visual left ventricular ejection fraction is estimated at 35 to 40%. The right ventricle is moderately dilated. The right ventricular systolic function is normal. Moderate tricuspid regurgitation present. There is moderate mitral regurgitation. There is moderate to severe valvular aortic stenosis. Likely severe given cardiomyopathy. Left Ventricle: The left ventricle is normal in size. There is mild concentric increase in the wall thickness of the left ventricle. Global left ventricular systolic function is moderately decreased. The visual left ventricular ejecti on fraction is estimated at 35 to 40%. There is moderate global hypokinesis of the left ventricle. No regional wall motion abnormalities are present. The overall diastolic pattern is one of restrictive filling with reduction of left ventricular compliance and marked elevation of left ventricular filling pressures. Right Ventricle: The right ventricle is moderately dilated. There is normal right ventricular wall thickness. The righ t ventricular systolic function is normal. The tricuspid annular plane systolic excursion (TAPSE) measurement is 1. 6 cm. No regional wall motion abnormalities are noted. Aortic Valve: The aortic valve is severely calcified. The aortic valve is trileaflet. There is moderate to severe v alvular aortic stenosis. The calculated aortic valve area is 0.79 cm2. The aortic valve maximum pressure gradient is 52 mmHg. The aortic valve mean pressure gradient is 36 mmHg. Mild aortic regurgitation is present. Mitral Valve: The mitral valve leaflets are moderately thickened. Severe mitral annular calcification is present. N o evidence of mitral stenosis is seen. There is moderate mitral regurgitation. Tricuspid Valve: The tricuspid valve is visually normal in structure and function. There is no tricuspid stenosis. Mod erate tricuspid regurgitation present. Pulmonic Valve: The pulmonic valve is not well seen. There is no pulmonic valvular stenosis. There is no pulmonic karlos vular regurgitation. Left Atrium: The left atrium is severely dilated. The left atrial volume indexed to body surface area is 73 ml/m2. This refers to the maximal volume measured prior to mitral valve opening. Right Atrium: The right atrium is severely dilated. The inferior vena cava appears abnormal. The inferior vena cava is mildly dilated with mildly decreased collapse with sniff (estimated right atrial pressure 10-15mmHg). Atrial Septum: The inter-atrial septum is shifted leftward, consistent with high right atrial pressure. There is no Doppler evidence for an atrial septal defect. Negative bubble study. Aorta: The ascending aorta is not well seen. The aortic root measures 3.2 cm in diameter. Pulmonary Artery: The pulmonary artery is not well seen. Inferior vena cava dynamics indicate severely elevated right a trial pressures. The right ventricular systolic pressure is 57mmHg. Pericardium/Pleural Space: There is no pericardial effusion. No pleural effusion is seen. Doppler Measurements & Calculations Ao max P.2 mmHg Ao mean P.3 mmHg Ao V2 max: 361.4 cm/sec Ao V2 mean: 293.6 cm/sec Ao V2 VTI: 84.9 cm LV V1 max: 91.8 cm/sec LV V1 max P.4 mmHg LV V1 mean: 67.9 cm/sec LV V1 mean P.02 mmHg LV V1 VTI: 19.8 cm MR max P.8 mmHg MR max tobias: 605.7 cm/sec MV A max tobias: 85.1 cm/sec MV dec time: 0.12 sec MV DVI-pr_phl: 1.49 MV E max tobias: 127.1 cm/sec PA max P.69 mmHg PA V2 max: 64.9 cm/sec RAP systole: 15.0 mmHg RV S Vel_phl: 10.2 cm/sec TR max P.0 mmHg TR max tobias: 342.8 cm/sec MMode/2D Measurements & Calculations Ao root diam: 3.2 cm EDV(MOD-sp4): 115.9 ml EF (est.): 34.4 % ESV(MOD-sp4): 57.9 ml ESV(sp4-el): 106.2 ml Heart Rate: 93.0 BPM Height (metric): 160.0 cm IVSd: 1.06 cm LA A4C-A/L_phl: 27.0 cm² LA dimension: 6.2 cm LA ESV-A/L_phl: 94.6 ml LAV(MOD-sp2): 111.8 ml LAV(MOD-sp4): 122.7 ml LVIDd: 4.8 cm LVIDs: 4.0 cm LVLd ap4: 7.8 cm LVLs ap4: 7.4 cm LVOT diam: 2.08 cm LVPWd: 1.10 cm RA A4Cs_phl: 16.0 cm² RV Base_phl: 5.0 cm Systolic Pressure: 119.0 mmHg TAPSE_phl: 1.59 cm Other Measurements & Calculations Ao mean P.3 mmHg Ao root diam: 3.2 cm Ao V2 max: 361.4 cm/sec Ao V2 mean: 293.6 cm/sec Ao V2 VTI: 84.9 cm VINCENT(I,D): 0.79 cm² VINCENT(V,D): 0.86 cm² BMI: 21.1 kilograms/m² BSA: 1.55 m² BSA([facility]): 1.55 m² Diastolic Pressure: 72.0 mmHg EDV(MOD-sp4): 115.9 ml EDV(Teich): 108.4 ml EF (est.): 34.4 % EF(MOD-sp4): 50.0 % EF(Teich): 34.4 % ESV(MOD-sp4): 57.9 ml ESV(sp4-el): 106.2 ml ESV(Teich): 71.1 ml FS: 16.4 % Heart Rate: 93.0 BPM Height (metric): 160.0 cm IVSd: 1.06 cm LA A4C-A/L_phl: 27.0 cm² LA dimension: 6.2 cm LA ESV-A/L_phl: 94.6 ml LAV(MOD-sp2): 111.8 ml LAV(MOD-sp4): 122.7 ml LV V1 max: 91.8 cm/sec LV V1 mean: 67.9 cm/sec LV V1 mean P.02 mmHg LVIDd: 4.8 cm LVIDs: 4.0 cm LVLd ap4: 7.8 cm LVLs ap4: 7.4 cm LVOT area: 3.4 cm² LVOT diam: 2.08 cm LVPWd: 1.10 cm MR max P.8 mmHg MR max tobias: 605.7 cm/sec MV A max tobias: 85.1 cm/sec MV dec time: 0.12 sec MV DVI-pr_phl: 1.49 MV E max tobias: 127.1 cm/sec MV E/A: 1.49 PA max P.69 mmHg PA V2 max: 64.9 cm/sec RA A4Cs_phl: 16.0 cm² RAP systole: 15.0 mmHg RV Base_phl: 5.0 cm RV S Vel_phl: 10.2 cm/sec RVSP(TR): 62.0 mmHg SV(LVOT): 67.2 ml SV(MOD-sp4): 57.9 ml Systolic Pressure: 119.0 mmHg TAPSE_phl: 1.59 cm TR max P.0 mmHg TR max tobias: 342.8 cm/sec TV max P.0 mmHg Weight (metric): 54.0 kg Lat E/e': 64.2 Med E/e': 43.5 Casey Cooper MD 10/25/2024, 3: 31 PM Ordering Physician: Yaya Britt Referring Physician: Wyatt Caceres Performed By: Kathe Jensen RDCS
--- NOTE | 2024-10-25 21:24 | Ultrasound Report ---
PROCEDURE: US Bladder INDICATIONS: pelvis, evaluate bladder, evaluate for urine TECHNIQUE: Real-time scanning was performed of the bladder, with image documentation. COMPARISON: None FINDINGS: Limited exam secondary to overlying bandages and ostomy appliance. Bladder: Pre-void bladder volume is 71 mL. The patient did not void. Pre-void images demonstrate no intraluminal masses or stones. On pre-void images, neither ureteral jets are noted with color Dopple r interrogation. (Of note, ureteral jets may not be detectable in up to 25% of cases due to insuffic ient differences in specific gravity between ureteral and bladder urine). Miscellaneous: No free pelvic fluid. IMPRESSION: Limited exam of the urinary bladder demonstrating a volume of about 71 cc. No obvious abnormality. Reviewed by: Mariah Gamble MD on 10/25/2024 9:22 PM PDT Approved by: Mariah Gamble MD on 10/25/2024 9:22 PM PDT Station ID: [id number]
[2024-10-26 04:39] LABS: BASOPHILS % (AUTO) 0.2 %; EOSINOPHILS # (AUTO) 0.1 10^3/uL (0.0-0.7); EOSINOPHILS % (AUTO) 1.4 %; HCT - HEMATOCRIT 36.9 % (37.0-47.0); HGB - HEMOGLOBIN 11.5 g/dL (12.0-16.0); LYMPHOCYTES # (AUTO) 0.8 10^3/uL (1.5-3.5); LYMPHOCYTES % (AUTO) 9.5 %; MEAN CORPUSCULAR HEMOGLOBIN 29.5 pg (27.0-31.0); MEAN CORPUSCULAR HGB CONC 31.2 g/dL (32.0-36.0); MEAN CORPUSCULAR VOLUME 94.6 fL (81.0-99.0); MEAN PLATELET VOLUME 9.5 fL (7.9-10.8); MONOCYTES # (AUTO) 0.5 10^3/uL (0.0-1.0); MONOCYTES % (AUTO) 6.6 %; NEUTROPHILS # (AUTO) 6.6 10^3/uL (1.5-6.6); NEUTROPHILS % (AUTO) 81.7 %; PLT - PLATELET COUNT 294 10^3/uL (130-450); RED CELL DISTRIBUTION WIDTH 22.8 % (12.0-15.0)
[2024-10-26 04:55] LABS: CREATININE 0.9 mg/dL (0.6-1.3); POTASSIUM 4.3 mmol/L (3.5-4.5)
[2024-10-26 04:59] LABS: SLIDE REVIEW? Indicated
[2024-10-26 05:32] LABS: PLATELET ESTIMATE, MANUAL NORMAL (130-450,000) (NORMAL); PLATELET MORPHOLOGY NORMAL APPEARANCE (NORMAL)
[2024-10-26] MEDS: MULTIVITAMIN W/MINERALS TABLET PO SCH (13:32)
--- NOTE | 2024-10-26 13:52 | MRI Report ---
PROCEDURE: MRI Brain WO INDICATIONS: Stroke workup TECHNIQUE: Noncontrast axial T1 spin echo, axial T2 fast spin echo, sagittal and axial FLAIR, coronal T2 fast sp in echo, axial gradient echo, axial diffusion and ADC through the brain. COMPARISON: CT head 10/23/2024. FINDINGS: Image quality: Excellent. CSF Spaces: Basal cisterns are patent. No extra-axial fluid collections. Ventricles are normal in size and shape. Brain: Moderate size area of restricted diffusion within the left MCA territory in the same region s een on prior CT. Cortical susceptibility artifact is seen near this region, may represent laminar nec rosis. Age-related global volume loss and chronic microvascular ischemic changes are present. No intr acranial masses or hemorrhage. Berman/white matter interface is normal. Brainstem appears normal. No chronic ischemic insults. Normal intravascular flow voids are present. Skull and face: Calvarium has normal marrow signal. Bilateral lens replacements. The orbits are oth erwise normal in appearance. Sinuses: Sinuses and mastoids are clear. IMPRESSION: 1.Moderate-sized area of restricted diffusion seen within the left MCA territory consistent with infa rct as seen on prior CT head. 2.Cortical susceptibility artifact is seen within the left frontal lobe near the region of infarct, m ay represent cortical laminar necrosis. Reviewed by: Hadley Hanson MD on 10/26/2024 1:51 PM PDT Approved by: Hadley Hanson MD on 10/26/2024 1:51 PM PDT Station ID: [id number]
[2024-10-26] MEDS: diltiaZEM 30 MG TABLET PO SCH (17:31)
[2024-10-26] MEDS ORDERED: ACETAMINOPHEN 1,000 MG/100 ML 1,000 MG/100 ML BAG IV PRN (17:52)
--- NOTE | 2024-10-26 18:07 | PROVIDER PROGRESS NOTE ---
Subjective Prog Note Date Prog Note Date: 10/26/24 Subjective Subjective: still aphasic, but answering in the negative more often with head shaking, which is a change. As the day progresses, she is not agitated, but refuses care. does not want to be cleaned and turned. does not want to swallow meds. Current Medications Current Medications Current Medications: Current Medications Generic Name Dose Route Start Last Admin Trade Name Freq PRN Reason Stop Dose Admin Acetaminophen 650 mg 10/23/24 20:45 10/26/24 12:00 Acetaminophen 325 Mg Tablet PO 650 mg Q4HR PRN Administration Pain 1 to 4, or Fever Aspirin 81 mg 10/24/24 09:00 10/26/24 08:11 Aspirin Ec 81 Mg Tablet PO 81 mg DAILY JAYLA Administration Atorvastatin Calcium 40 mg 10/24/24 21:00 10/25/24 21:37 Atorvastatin 40 Mg Tablet PO 40 mg QPM JAYLA Administration Digoxin 250 mcg 10/27/24 17:55 Digoxin 500 Mcg/2 Ml Amp IVP DAILY JAYLA Diltiazem HCl 30 mg 10/26/24 18:00 10/26/24 17:31 Diltiazem 30 Mg Tablet PO Not Given Q6HR JAYLA Enoxaparin Sodium 30 mg 10/24/24 09:00 10/26/24 08:21 Enoxaparin 30 Mg/0.3 Ml Syringe SUBQ 30 mg DAILY JAYLA Administration Hydromorphone HCl 0.2 mg 10/23/24 21:09 10/23/24 23:03 Hydromorphone 0.5 Mg/0.5 Ml Syringe IVP 0.2 mg Q2H PRN Administration Severe Pain (Level 7-10) Diltiazem HCl 125 mg/ Dextrose 125 mls @ 5 mls/hr 10/25/24 12:00 10/26/24 14:09 IV Not Given .Q25H JAYLA Protocol 5 MG/HR Sodium Chloride 1,000 mls @ 100 mls/hr 10/25/24 12:00 10/26/24 08:27 Normal Saline 0.9% IV 100 mls/hr .Q10H JAYLA Administration Acetaminophen 1,000 mg in 100 mls @ 400 mls/hr 10/26/24 17:52 Acetaminophen IV Q6HR PRN Moderate Pain (Level 4-6) Morphine Sulfate 1 mg 10/23/24 20:45 10/26/24 02:53 Morphine 2 Mg/Ml Carpuject IVP 1 mg Q2HR PRN Administration Pain 8 to 10 Morphine Sulfate 2 mg 10/26/24 17:52 Morphine 2 Mg/Ml Carpuject IVP Q2HR PRN Severe Pain (Level 7-10) Multivitamins/Minerals 1 tab 10/26/24 12:00 10/26/24 13:32 Multivitamin W/Minerals Tablet PO 1 tab DAILYWM JAYLA Administration Ondansetron HCl 4 mg 10/23/24 20:45 Ondansetron Odt 4 Mg Tablet TL Q6HR PRN Nausea / Vomiting Ondansetron HCl 4 mg 10/23/24 20:45 Ondansetron 4 Mg/2 Ml Vial IVP Q6HR PRN Nausea / Vomiting Prochlorperazine Edisylate 10 mg 10/23/24 20:45 Prochlorperazine 10 Mg/2 Ml Vial IVP Q6HR PRN Nausea / Vomiting Sodium Chloride 10 ml 10/23/24 20:45 Sodium Chloride Flush 0.9% 10 Ml Syringe IVP PRN PRN NEEDED PER PROVIDER ORDERS Sodium Chloride 10 ml 10/24/24 01:00 10/26/24 17:09 Sodium Chloride Flush 0.9% 10 Ml Syringe IVP 10 ml 0100,[id number],1700 JAYLA Administration Zinc Oxide 113 gm 10/25/24 06:00 Cod Liver Oil/Zinc Oxide 113 Gm Tube TOP PRN PRN Skin Care Objective Vital Signs/Intake & Output Reviewed Vital Signs: Yes Vital Signs: Vital Signs x48h Temp Pulse Pulse Resp BP BP Pulse Ox 10/26/24 17:31 98 166/104 H 10/26/24 17:00 90 21 166/104 H 99 10/26/24 16:00 37.0 C 94 19 161/114 H 99 10/26/24 15:00 80 21 164/93 H 98 10/26/24 14:00 75 23 150/75 H 98 10/26/24 13:00 69 18 166/73 H 98 10/26/24 12:00 36.9 C 84 22 158/123 H 94 10/26/24 11:00 70 16 156/75 H 97 Intake & Output: Intake & Output 04/01/25 04/02/25 04/03/25 04/04/25 23:59 23:59 23:59 23:59 Intake Total 1951 3776 / 3776 1273 / 1273 Output Total 50 / 50 260 / 260 150 / 150 Balance 1901 / 1901 3516 / 3516 1123 / 1123 Weight (kg) 54 kg Objective General Appearance: positive No acute distress and Alert Eyes Bilateral: positive No scleral icterus ENT: positive ENT inspection nml Neck: positive Nml inspection Respiratory: positive Chest non-tender and Breath sounds nml Cardiovascular: positive Systolic murmur (Loud holosystolic murmur) Abdomen: positive Non-tender Skin: positive Color nml Extremities: positive Non-tender, No pedal edema and Joint swelling (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 ) Neurologic/Psychiatric: positive Other (right facial droop. aphasic. yes/no answers not always correct. moves all extremities and follows commands) Lab Results 10/26/24 04:34 10/26/24 04:34 Other Labs: Lab Results x24hrs 10/26/24 10/26/24 Range/Units 04:34 04:34 WBC 8.0 (4.8-10.8) x10^3/uL RBC 3.90 L (4.20-5.40) 10^6/uL Hgb 11.5 L (12.0-16.0) g/dL Hct 36.9 L (37.0-47.0) % MCV 94.6 (81.0-99.0) fL MCH 29.5 (27.0-31.0) pg MCHC 31.2 L (32.0-36.0) g/dL RDW 22.8 H (12.0-15.0) % Plt Count 294 (130-450) 10^3/uL MPV 9.5 (7.9-10.8) fL Neut # (Auto) 6.6 (1.5-6.6) 10^3/uL Lymph # (Auto) 0.8 L (1.5-3.5) 10^3/uL [place] # (Auto) 0.5 (0.0-1.0) 10^3/uL Eos # (Auto) 0.1 (0.0-0.7) 10^3/uL Baso # (Auto) 0.0 (0.0-0.1) 10^3/uL Absolute Nucleated RBC 0.00 x10^3/uL Nucleated RBC % 0.0 /100WBC Manual Slide Review Indicated Platelet Estimate NORMAL (130-450,000) (NORMAL) Platelet Morphology NORMAL APPEARANCE (NORMAL) RBC Morph Micro Appear 1+ OVALOCYTES 2+ ANISOCYTOSIS (NORMAL) Sodium 139 (135-145) mmol/L Potassium 4.3 (3.5-4.5) mmol/L Chloride 107 (101-111) mmol/L Carbon Dioxide 24 (21-32) mmol/L Anion Gap 8.0 (6-13) BUN 20 (6-20) mg/dL Creatinine 0.9 (0.6-1.3) mg/dL Estimated GFR (MDRD) 59 L (>89) Glucose 78 (74-104) mg/dL Calcium 9.0 (8.5-10.3) mg/dL Assessment/Plan Problem List (1) Atrial fibrillation with RVR: Impression: She has been rate controlled on diltiazem overnight, and off of this for most of the day. tried to start po dilt, but patient has refused. due to refusal of po meds, I will continue with IV digoxin, as she has completed her digoxin loading protocol. echocardiogram, her EF is lower than our last study in 2021, but her aortic stenosis is not considerably worse. Will need out patient cardiology followup. rate lowering medications have been effective. (2) Acute cerebrovascular accident (CVA): Impression: I called telestroke neurology at [place]. I spoke with Dr. Reilly. I discussed this new diagnosis of atrial fibrillation in light of her recent left frontal CVA. Dr. Solares stated that the CVA was moderate-sized and that she would recommend waiting 5 days to start anticoagulation as long as there is no hemorrhagic conversion at this time. We will be obtaining an MRI of the brain in the near future although not while she is this hemodynamically unstable. Assuming there is no hemorrhagic conversion of the CVA we will start anticoagulation at about 5 days after the event. At the time that we start Eliquis we will stop the aspirin. Dr. Reilly recommends 2.5 mg of Eliquis p.o. twice daily given the patient's age and size. Renal function was discussed with Dr. Reilly, it is normal. MRI resulted. no hemorrhagic conversion. I will plan to start Eliquis tomorrow, as that will give her five days since the event. (3) CKD (chronic kidney disease): Impression: Renal function normal. urine output is low and difficult to quantify. I am continuing to monitor this on a daily basis. (4) Hyperkalemia: Impression: Potassium of 5.3 on admission, 4.3this morning. Unclear etiology. It has corrected with one dose of Lokelma repeat BMP in the AM. (5) Rectal carcinoma: Impression: Stage 4. ongoing treatment. She is on palliative chemo. 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 (6) Low urine output: Impression: diffcult to quantify intake and output. Purewick is not effective. I have placed a request to [facility] for a report from her last CT A/P to further define anatomy. I was able to review records from [facility]. 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 palliative loop colostomy followed by excision of the mass which included the posterior vaginal wall, then some problems with healing of the wounds and ultimately required hyperbaric tx. I have spent 55 minutes in the care of this patient today. This includes time [id number], review and ordering of diagnostic imaging and laboratory studies. Monitoring the patient's signs symptoms, evaluation of medication effectiveness and patient's response to treatment.
[2024-10-26] MEDS ORDERED: traMADol 50 MG TABLET PO PRN (20:00)
[2024-10-26] MEDS: SODIUM CHLORIDE FLUSH 0.9% 10 ML SYRINGE IVP PRN (21:15)
[2024-10-26] MEDS: LORazepam 2 MG/ML VIAL IVP SCH (22:05)
[2024-10-27] MEDS: MORPHINE 2 MG/ML CARPUJECT IVP PRN (01:55)
[2024-10-27 05:03] LABS: BASOPHILS % (AUTO) 0.3 %; EOSINOPHILS # (AUTO) 0.2 10^3/uL (0.0-0.7); EOSINOPHILS % (AUTO) 2.9 %; HCT - HEMATOCRIT 37.7 % (37.0-47.0); HGB - HEMOGLOBIN 11.4 g/dL (12.0-16.0); LYMPHOCYTES # (AUTO) 0.8 10^3/uL (1.5-3.5); MEAN CORPUSCULAR HEMOGLOBIN 29.7 pg (27.0-31.0); MEAN CORPUSCULAR HGB CONC 30.2 g/dL (32.0-36.0); MEAN CORPUSCULAR VOLUME 98.2 fL (81.0-99.0); MEAN PLATELET VOLUME 9.5 fL (7.9-10.8); MONOCYTES # (AUTO) 0.7 10^3/uL (0.0-1.0); NEUTROPHILS # (AUTO) 5.8 10^3/uL (1.5-6.6); PLT - PLATELET COUNT 272 10^3/uL (130-450); RED BLOOD COUNT 3.84 10^6/uL (4.20-5.40); RED CELL DISTRIBUTION WIDTH 22.5 % (12.0-15.0); WHITE BLOOD COUNT 7.7 x10^3/uL (4.8-10.8)
[2024-10-27 05:18] LABS: SLIDE REVIEW? Indicated
[2024-10-27 05:27] LABS: CALCIUM 8.2 mg/dL (8.5-10.3); CREATININE 0.8 mg/dL (0.6-1.3); POTASSIUM 4.2 mmol/L (3.5-4.5)
[2024-10-27 05:37] LABS: PLATELET ESTIMATE, MANUAL NORMAL (130-450,000) (NORMAL); PLATELET MORPHOLOGY NORMAL APPEARANCE (NORMAL)
[2024-10-27 05:38] LABS: WBC MORPHOLOGY (MULTIPLE) NORMAL APPEARANCE (NORMAL)
[2024-10-27] MEDS: DEXTROSE 5% 1,000 ML IV SCH (05:54)
[2024-10-27] MEDS: DEXTROSE 50% ABBOJECT 25 GM/50 ML SYRINGE IVP ONE (05:54)
[2024-10-27] MEDS ORDERED: PANTOPRAZOLE 40 MG TABLET PO SCH (12:00)
[2024-10-27] MEDS: LOSARTAN 50 MG TABLET PO SCH (12:30)
[2024-10-27] MEDS: AMITRIPTYLINE 10 MG TABLET PO SCH ×2 (12:47→22:08)
--- NOTE | 2024-10-27 16:48 | PROVIDER PROGRESS NOTE ---
Subjective Prog Note Date Prog Note Date: 10/27/24 Subjective Subjective: lots of family here today. She has been able to swallow meds more readily today. Current Medications Current Medications Current Medications: Current Medications Generic Name Dose Route Start Last Admin Trade Name Freq PRN Reason Stop Dose Admin Acetaminophen 650 mg 10/23/24 20:45 10/26/24 12:00 Acetaminophen 325 Mg Tablet PO 650 mg Q4HR PRN Administration Pain 1 to 4, or Fever Amitriptyline HCl 10 mg 10/27/24 21:00 Amitriptyline 10 Mg Tablet PO NIGHTLY JAYLA Apixaban 5 mg 10/27/24 21:00 Apixaban 5 Mg Tablet PO BID JAYLA Atorvastatin Calcium 40 mg 10/24/24 21:00 10/26/24 20:57 Atorvastatin 40 Mg Tablet PO 40 mg QPM JAYLA Administration Digoxin 250 mcg 10/27/24 17:55 Digoxin 500 Mcg/2 Ml Amp IVP DAILY JAYLA Digoxin 125 mcg 10/28/24 09:00 Digoxin 125 Mcg Tablet PO DAILY JAYLA Diltiazem HCl 30 mg 10/26/24 18:00 10/27/24 12:30 Diltiazem 30 Mg Tablet PO 30 mg Q6HR JAYLA Administration Hydromorphone HCl 0.2 mg 10/23/24 21:09 10/27/24 07:10 Hydromorphone 0.5 Mg/0.5 Ml Syringe IVP 0.2 mg Q2H PRN Administration Severe Pain (Level 7-10) Acetaminophen 1,000 mg in 100 mls @ 400 mls/hr 10/26/24 17:52 Acetaminophen IV Q6HR PRN Moderate Pain (Level 4-6) Dextrose 1,000 mls @ 100 mls/hr 10/27/24 06:00 10/27/24 15:52 D5w IV 100 mls/hr .Q10H JAYLA Administration Lorazepam 1 mg 10/26/24 22:00 10/26/24 22:05 Lorazepam 2 Mg/Ml Vial IVP 1 mg HS JAYLA Administration Losartan Potassium 25 mg 10/27/24 12:00 10/27/24 12:30 Losartan 50 Mg Tablet PO 25 mg QPM JAYLA Administration Morphine Sulfate 1 mg 10/23/24 20:45 10/26/24 02:53 Morphine 2 Mg/Ml Carpuject IVP 1 mg Q2HR PRN Administration Pain 8 to 10 Morphine Sulfate 2 mg 10/26/24 17:52 10/27/24 01:55 Morphine 2 Mg/Ml Carpuject IVP 2 mg Q2HR PRN Administration Severe Pain (Level 7-10) Multivitamins/Minerals 1 tab 10/26/24 12:00 10/27/24 08:31 Multivitamin W/Minerals Tablet PO 1 tab DAILYWM JAYLA Administration Ondansetron HCl 4 mg 10/23/24 20:45 Ondansetron Odt 4 Mg Tablet TL Q6HR PRN Nausea / Vomiting Ondansetron HCl 4 mg 10/23/24 20:45 Ondansetron 4 Mg/2 Ml Vial IVP Q6HR PRN Nausea / Vomiting Pantoprazole Sodium 40 mg 10/28/24 07:00 Pantoprazole 40 Mg Tablet PO QDAC JAYLA Prochlorperazine Edisylate 10 mg 10/23/24 20:45 Prochlorperazine 10 Mg/2 Ml Vial IVP Q6HR PRN Nausea / Vomiting Sodium Chloride 10 ml 10/23/24 20:45 10/27/24 07:10 Sodium Chloride Flush 0.9% 10 Ml Syringe IVP 10 ml PRN PRN Administration NEEDED PER PROVIDER ORDERS Sodium Chloride 10 ml 10/24/24 01:00 10/27/24 08:31 Sodium Chloride Flush 0.9% 10 Ml Syringe IVP 10 ml 0100,0900,1700 JAYLA Administration Tramadol HCl 50 mg 10/26/24 20:00 Tramadol 50 Mg Tablet PO Q4HR PRN Moderate Pain (Level 4-6) Zinc Oxide 113 gm 10/25/24 06:00 Cod Liver Oil/Zinc Oxide 113 Gm Tube TOP PRN PRN Skin Care Objective Vital Signs/Intake & Output Reviewed Vital Signs: Yes Vital Signs: Vital Signs x48h Temp Pulse Pulse Pulse Resp BP BP 10/27/24 16:10 36.8 C 83 20 129/84 10/27/24 14:00 107 H 19 155/93 H 10/27/24 12:30 79 151/89 H 10/27/24 11:00 86 17 145/97 H 10/27/24 10:00 87 17 160/73 H 10/27/24 10:00 86 16 160/73 H 10/27/24 09:00 101 H 14 155/88 H Pulse Ox 10/27/24 16:10 100 10/27/24 14:00 94 10/27/24 12:30 10/27/24 11:00 97 10/27/24 10:00 97 10/27/24 10:00 98 10/27/24 09:00 96 Intake & Output: Intake & Output 10/24/24 10/25/24 10/26/24 10/27/24 23:59 23:59 23:59 23:59 Intake Total 1951 3776 / 6 2323 / 2322 Output Total 50 / 50 260 / 260 250 / 250 600 / 600 Balance 190 / 1901 3516 / 3516 2072 / 2072 1409 / 1409 Objective General Appearance: positive No acute distress and Alert Eyes Bilateral: positive No scleral icterus ENT: positive ENT inspection nml Neck: positive Nml inspection Respiratory: positive Chest non-tender and Breath sounds nml Cardiovascular: positive Systolic murmur (Loud holosystolic murmur) Abdomen: positive Non-tender Skin: positive Color nml Extremities: positive Non-tender, No pedal edema and Joint swelling (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 ) Neurologic/Psychiatric: positive Other (right facial droop. aphasic. yes/no answers not always correct. moves all extremities and follows commands) Lab Results 10/27/24 04:49 10/27/24 04:49 Other Labs: Lab Results x24hrs 10/27/24 10/27/24 10/27/24 Range/Units 14:55 08:36 06:24 WBC (4.8-10.8) x10^3/uL RBC (4.20-5.40) 10^6/uL Hgb (12.0-16.0) g/dL Hct (37.0-47.0) % MCV (81.0-99.0) fL MCH (27.0-31.0) pg MCHC (32.0-36.0) g/dL RDW (12.0-15.0) % Plt Count (130-450) 10^3/uL MPV (7.9-10.8) fL Neut # (Auto) (1.5-6.6) 10^3/uL Lymph # (Auto) (1.5-3.5) 10^3/uL [place] # (Auto) (0.0-1.0) 10^3/uL Eos # (Auto) (0.0-0.7) 10^3/uL Baso # (Auto) (0.0-0.1) 10^3/uL Absolute Nucleated RBC x10^3/uL Nucleated RBC % /100WBC Manual Slide Review WBC Morphology (NORMAL) Platelet Estimate (NORMAL) Platelet Morphology (NORMAL) RBC Morph Micro Appear (NORMAL) Sodium (135-145) mmol/L Potassium (3.5-4.5) mmol/L Chloride (101-111) mmol/L Carbon Dioxide (21-32) mmol/L Anion Gap (6-13) BUN (6-20) mg/dL Creatinine (0.6-1.3) mg/dL Estimated GFR (MDRD) (>89) Glucose (74-104) mg/dL POC Whole Bld Glucose 96 118 154 (70-100) mg/dL Calcium (8.5-10.3) mg/dL 10/27/24 10/27/24 10/27/24 Range/Units 04:49 04:49 04:49 WBC 7.7 (4.8-10.8) x10^3/uL RBC 3.84 L (4.20-5.40) 10^6/uL Hgb 11.4 L (12.0-16.0) g/dL Hct 37.7 (37.0-47.0) % MCV 98.2 (81.0-99.0) fL MCH 29.7 (27.0-31.0) pg MCHC 30.2 L (32.0-36.0) g/dL RDW 22.5 H (12.0-15.0) % Plt Count 272 (130-450) 10^3/uL MPV 9.5 (7.9-10.8) fL Neut # (Auto) 5.8 (1.5-6.6) 10^3/uL Lymph # (Auto) 0.8 L (1.5-3.5) 10^3/uL [place] # (Auto) 0.7 (0.0-1.0) 10^3/uL Eos # (Auto) 0.2 (0.0-0.7) 10^3/uL Baso # (Auto) 0.0 (0.0-0.1) 10^3/uL Absolute Nucleated RBC 0.00 x10^3/uL Nucleated RBC % 0.0 /100WBC Manual Slide Review Indicated WBC Morphology NORMAL APPEARANCE (NORMAL) Platelet Estimate NORMAL (130-450,000) (NORMAL) Platelet Morphology NORMAL APPEARANCE (NORMAL) RBC Morph Micro Appear 1+ TEARDROP CELLS 1+ OVALOCYTES 2+ ANISOCYTOSIS (NORMAL) Sodium 139 (135-145) mmol/L Potassium 4.2 (3.5-4.5) mmol/L Chloride 108 (101-111) mmol/L Carbon Dioxide 24 (21-32) mmol/L Anion Gap 7.0 (6-13) BUN 15 (6-20) mg/dL Creatinine 0.8 (0.6-1.3) mg/dL Estimated GFR (MDRD) 68 L (>89) Glucose 58 L* (74-104) mg/dL POC Whole Bld Glucose (70-100) mg/dL Calcium 8.2 L (8.5-10.3) mg/dL Assessment/Plan Problem List (1) Atrial fibrillation with RVR: Impression: She is more compliant with oral meds now. She has been taking her meds for the ICU RNs. Her heart rate has been controlled, remains intermittently in a fib. I am changing her digoxin to oral dosing tomorrow. she has been started on oral diltiazem, 30mg every 6 hours, and will transfer her to [facility] from ICU status today. Looking towards inpatient rehab in next several days. echocardiogram, her EF is lower than our last study in 2021, but her aortic stenosis is not considerably worse. Will need out patient cardiology followup. rate lowering medications have been effective. (2) Acute cerebrovascular accident (CVA): Impression: I called telestroke neurology at [place]. I spoke with Dr. Reilly. I discussed this new diagnosis of atrial fibrillation in light of her recent left frontal CVA. Dr. Solares stated that the CVA was moderate-sized and that she would recommend waiting 5 days to start anticoagulation as long as there is no hemorrhagic conversion at this time. We will be obtaining an MRI of the brain in the near future although not while she is this hemodynamically unstable. Assuming there is no hemorrhagic conversion of the CVA we will start anticoagulation at about 5 days after the event. At the time that we start Eliquis we will stop the aspirin. Dr. Reilly recommends 2.5 mg of Eliquis p.o. twice daily given the patient's age and size. Renal function was discussed with Dr. Reilly, it is normal. MRI resulted. no hemorrhagic conversion. She is 5 days post event, Eliquis started for a fib today. ASA dc'ed today. she is on a statin for CVA prevention as well. (3) CKD (chronic kidney disease): Impression: Renal function normal. urine output is low and difficult to quantify. I am continuing to monitor this on a daily basis. Laboratory Tests 10/23/24 10/24/24 10/25/24 14:30 14:47 05:05 Creatinine 1.4 H 1.3 1.1 10/26/24 10/27/24 04:34 04:49 Creatinine 0.9 0.8 Has had anemia in past, with low iron counts, will check Iron panel. I will try to add on to this AM's labs. (4) Hyperkalemia: Impression: Potassium of 5.3 on admission, unclear etiology, resolved. Laboratory Tests 10/24/24 10/25/24 10/26/24 14:47 05:05 04:34 Potassium 4.0 4.9 H 4.3 10/27/24 04:49 Potassium 4.2 (5) Rectal carcinoma: Impression: Stage 4. ongoing treatment. She is on palliative chemo. 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 I was able to review records from [facility]. 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 palliative loop colostomy followed by excision of the mass which included the posterior vaginal wall, then some problems with healing of the wounds and ultimately required hyperbaric tx. (6) Low urine output: Impression: diffcult to quantify intake and output. Purewick is not effective. She told us that she is continent of urine at home. her daughter, who is a family practice [employer] tells me that she is often incontinent of urine at home. I have spent 45 minutes in the care of this patient today. This includes time [id number], review and ordering of diagnostic imaging and laboratory studies. Monitoring the patient's signs symptoms, evaluation of medication effectiveness and patient's response to treatment.
[2024-10-27] MEDS: DIGOXIN 500 MCG/2 ML AMP IVP SCH (17:15)
[2024-10-27 17:28] LABS: % IRON SATURATION 11 % (20-50); IRON 20 ug/dL (50-212); TOTAL IRON BINDING CAPACITY 188 ug/dL (250-450); TRANSFERRIN 134 mg/dL (203-362)
[2024-10-27 20:51] LABS: MAGNESIUM 1.5 mg/dL (1.7-2.3)
[2024-10-27 20:59] LABS: TROPONIN I HIGH SENSITIVITY 575.9 ng/L (2.3-14.8)
[2024-10-27] MEDS ORDERED: APIXABAN 5 MG TABLET PO SCH (21:00)
[2024-10-27] MEDS ORDERED: ENOXAPARIN 60 MG/0.6 ML SYRINGE SUBQ SCH (21:00)
[2024-10-27] MEDS: HEPARIN/0.45% NACL 25,000 UNIT/500 ML BAG IV SCH (22:08)
[2024-10-27] MEDS: MAGNESIUM SULFATE 2 GRAM 2 GM/50 ML BAG IV SCH (22:21)
[2024-10-28] MEDS ORDERED: METOPROLOL 5 MG/5 ML VIAL IVP PRN (01:10)
[2024-10-28] MEDS ORDERED: NALOXONE HCL NASAL SPRAY KIT NAS SCH (02:00)
[2024-10-28 04:31] LABS: BASOPHILS % (AUTO) 0.4 %; EOSINOPHILS # (AUTO) 0.3 10^3/uL (0.0-0.7); EOSINOPHILS % (AUTO) 4.1 %; HCT - HEMATOCRIT 40.1 % (37.0-47.0); LYMPHOCYTES # (AUTO) 0.7 10^3/uL (1.5-3.5); MEAN CORPUSCULAR HEMOGLOBIN 29.6 pg (27.0-31.0); MEAN CORPUSCULAR HGB CONC 29.9 g/dL (32.0-36.0); MEAN PLATELET VOLUME 8.8 fL (7.9-10.8); MONOCYTES # (AUTO) 0.8 10^3/uL (0.0-1.0); MONOCYTES % (AUTO) 9.5 %; NEUTROPHILS # (AUTO) 6.5 10^3/uL (1.5-6.6); NEUTROPHILS % (AUTO) 77.5 %; PLT - PLATELET COUNT 284 10^3/uL (130-450); RED BLOOD COUNT 4.05 10^6/uL (4.20-5.40); RED CELL DISTRIBUTION WIDTH 22.4 % (12.0-15.0); WHITE BLOOD COUNT 8.4 x10^3/uL (4.8-10.8)
[2024-10-28 04:43] LABS: MAGNESIUM 2.8 mg/dL (1.7-2.3)
[2024-10-28 04:48] LABS: CALCIUM 8.3 mg/dL (8.5-10.3); CREATININE 0.7 mg/dL (0.6-1.3)
[2024-10-28] MEDS: PANTOPRAZOLE 40 MG TABLET PO SCH (06:45)
[2024-10-28] MEDS ORDERED: ACETAMINOPHEN 500 MG TABLET PO PRN (07:42)
--- NOTE | 2024-10-28 08:53 | CT Report ---
PROCEDURE: CT Head WO INDICATIONS: AMS TECHNIQUE: Noncontrast 4.5 mm thick angled axial sections acquired from the foramen magnum to the vertex. For r adiation dose reduction, the following was used: automated exposure control, adjustment of mA and/or kV according to patient size. COMPARISON: MRI brain 10/26/2024, CT head 10/23/2024 FINDINGS: Image quality: Excellent. CSF spaces: Basal cisterns are patent. No extra-axial fluid collections. Ventricles are normal in size and shape. Brain: Low-attenuation within the left MCA territory consistent with evolution of known infarct. No findings concerning for hemorrhagic conversion. No midline shift. No intracranial masses or hemorrha ge. Berman-white matter interface is normal. Age-related global volume loss and chronic microvascular ischemic changes. Intracranial atherosclerotic vascular calcifications. Skull and face: Calvarium and visualized facial bones are intact, without suspicious lesions. Sinuses: Visualized sinuses and mastoids are clear. IMPRESSION: Involving left MCA territory infarct without findings concerning for hemorrhagic conversion. Reviewed by: Hadley Hanson MD on 10/28/2024 8:51 AM PDT Approved by: Hadley Hanson MD on 10/28/2024 8:51 AM PDT Station ID: [id number]
[2024-10-28] MEDS: DIGOXIN 125 MCG TABLET PO SCH (09:29)
[2024-10-28 10:09] LABS: HCT - HEMATOCRIT 37.6 % (37.0-47.0); HGB - HEMOGLOBIN 11.7 g/dL (12.0-16.0); MEAN CORPUSCULAR HEMOGLOBIN 30.2 pg (27.0-31.0); MEAN CORPUSCULAR HGB CONC 31.1 g/dL (32.0-36.0); MEAN CORPUSCULAR VOLUME 96.9 fL (81.0-99.0); MEAN PLATELET VOLUME 8.6 fL (7.9-10.8); RED BLOOD COUNT 3.88 10^6/uL (4.20-5.40); RED CELL DISTRIBUTION WIDTH 22.2 % (12.0-15.0); WHITE BLOOD COUNT 7.8 x10^3/uL (4.8-10.8)
[2024-10-28] MEDS: carvediloL 3.125 MG TABLET PO SCH (10:12)
[2024-10-28] MEDS: ASPIRIN EC 81 MG TABLET PO SCH (10:12)
[2024-10-28 10:40] LABS: CREATININE 0.7 mg/dL (0.6-1.3); POTASSIUM 4.1 mmol/L (3.5-4.5)
[2024-10-28] MEDS: METOPROLOL 5 MG/5 ML VIAL IVP SCH (11:09)
[2024-10-28] MEDS: KETOROLAC 15 MG/ML VIAL IVP PRN (11:37)
--- NOTE | 2024-10-28 13:02 | PROVIDER PROGRESS NOTE ---
Subjective Prog Note Date Prog Note Date: 10/28/24 Subjective Subjective: She got some IV pain meds and ativan overnight and has been sleepy this AM. Family is concerned this AM. She continues to refuse all oral intake. Current Medications Current Medications Current Medications: Current Medications Generic Name Dose Route Start Last Admin Trade Name Freq PRN Reason Stop Dose Admin Acetaminophen 1,000 mg 10/28/24 07:42 Acetaminophen 500 Mg Tablet PO Q6HR PRN Pain or Fever > 38C (100.4F) Amitriptyline HCl 10 mg 10/27/24 21:00 10/27/24 22:08 Amitriptyline 10 Mg Tablet PO 10 mg NIGHTLY JAYLA Administration Digoxin 250 mcg 10/27/24 17:55 10/28/24 09:15 Digoxin 500 Mcg/2 Ml Amp IVP 250 mcg DAILY JAYLA Administration Digoxin 125 mcg 10/28/24 09:00 10/28/24 09:29 Digoxin 125 Mcg Tablet PO Not Given DAILY JAYLA Heparin Sodium (Porcine) 1,000 - 2,000 unit 10/27/24 21:00 Heparin 1,000 Unit/Ml Vial IVP Q6H PRN aPTT <50 Protocol Hydromorphone HCl 0.2 mg 10/23/24 21:09 10/27/24 21:54 Hydromorphone 0.5 Mg/0.5 Ml Syringe IVP 0.2 mg Q2H PRN Administration Severe Pain (Level 7-10) Hydromorphone HCl 0.5 mg 10/28/24 11:29 Hydromorphone 0.5 Mg/0.5 Ml Syringe IVP Q2H PRN Severe Pain (Level 7-10) Dextrose 1,000 mls @ 100 mls/hr 10/27/24 06:00 10/28/24 04:04 D5w IV 100 mls/hr .Q10H JAYLA Administration Heparin Sodium/Sodium Chloride 25,000 unit in 500 mls @ 12.96 mls/hr 10/27/24 21:00 10/27/24 22:08 Heparin/0.45% Nacl IV 12 unit/kg/hr .[id number] JAYLA 12.96 mls/hr Administration Protocol 12 UNIT/KG/HR Ketorolac Tromethamine 15 mg 10/28/24 11:27 10/28/24 11:37 Ketorolac 15 Mg/Ml Vial IVP 11/02/24 11:26 15 mg Q6HR PRN Administration Severe Pain (Level 7-10) Lorazepam 1 mg 10/26/24 22:00 10/27/24 21:55 Lorazepam 2 Mg/Ml Vial IVP 1 mg HS JAYLA Administration Losartan Potassium 25 mg 10/27/24 12:00 10/27/24 12:30 Losartan 50 Mg Tablet PO 25 mg QPM JAYLA Administration Metoprolol Tartrate 5 mg 10/28/24 11:00 10/28/24 11:09 Metoprolol 5 Mg/5 Ml Vial IVP 5 mg Q6H JAYLA Administration Multivitamins/Minerals 1 tab 10/26/24 12:00 10/28/24 08:46 Multivitamin W/Minerals Tablet PO Not Given DAILYWM JAYLA Ondansetron HCl 4 mg 10/23/24 20:45 Ondansetron 4 Mg/2 Ml Vial IVP Q6HR PRN Nausea / Vomiting Pantoprazole Sodium 40 mg 10/28/24 07:00 10/28/24 06:45 Pantoprazole 40 Mg Tablet PO Not Given QDAC JAYLA Prochlorperazine Edisylate 10 mg 10/23/24 20:45 Prochlorperazine 10 Mg/2 Ml Vial IVP Q6HR PRN Nausea / Vomiting Sodium Chloride 10 ml 10/23/24 20:45 10/27/24 07:10 Sodium Chloride Flush 0.9% 10 Ml Syringe IVP 10 ml PRN PRN Administration NEEDED PER PROVIDER ORDERS Sodium Chloride 10 ml 10/24/24 01:00 10/28/24 09:29 Sodium Chloride Flush 0.9% 10 Ml Syringe IVP Not Given 0100,0900,1700 JAYLA Zinc Oxide 113 gm 10/25/24 06:00 Cod Liver Oil/Zinc Oxide 113 Gm Tube TOP PRN PRN Skin Care Objective Vital Signs/Intake & Output Reviewed Vital Signs: Yes Vital Signs: Vital Signs x48h Temp Pulse Pulse Resp BP BP Pulse Ox 10/28/24 12:17 36.8 C 72 20 174/81 H 96 10/28/24 11:23 64 169/77 H 10/28/24 11:09 72 168/70 H 10/28/24 09:15 71 10/28/24 05:05 36.5 C 74 20 137/68 H 94 Intake & Output: Intake & Output 10/25/24 10/26/24 10/27/24 10/28/24 23:59 23:59 23:59 23:59 Intake Total 3776 / 3776 2323 / 2323 2058 / 2058 1050 / 1050 Output Total 260 / 260 250 / 250 750 / 750 725 / 725 Balance 3516 / 3516 2072 / 2072 1309 / 1309 325 / 325 Objective General Appearance: positive No acute distress and Alert Eyes Bilateral: positive No scleral icterus ENT: positive ENT inspection nml Neck: positive Nml inspection Respiratory: positive Chest non-tender and Breath sounds nml Cardiovascular: positive Systolic murmur (Loud holosystolic murmur) Abdomen: positive Non-tender Skin: positive Color nml Extremities: positive Non-tender, No pedal edema and Joint swelling (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 ) Neurologic/Psychiatric: positive Other (right facial droop. aphasic. yes/no answers not always correct. moves all extremities and follows commands) Lab Results 10/28/24 10:04 10/28/24 10:04 Other Labs: Lab Results x24hrs 10/28/24 10/28/24 10/28/24 Range/Units 10:04 04:25 00:31 WBC 7.8 8.4 (4.8-10.8) x10^3/uL RBC 3.88 L 4.05 L (4.20-5.40) 10^6/uL Hgb 11.7 L 12.0 (12.0-16.0) g/dL Hct 37.6 40.1 (37.0-47.0) % MCV 96.9 99.0 (81.0-99.0) fL MCH 30.2 29.6 (27.0-31.0) pg MCHC 31.1 L 29.9 L (32.0-36.0) g/dL RDW 22.2 H 22.4 H (12.0-15.0) % Plt Count 279 284 (130-450) 10^3/uL MPV 8.6 8.8 (7.9-10.8) fL Neut # (Auto) 6.5 (1.5-6.6) 10^3/uL Lymph # (Auto) 0.7 L (1.5-3.5) 10^3/uL Hill # (Auto) 0.8 (0.0-1.0) 10^3/uL Eos # (Auto) 0.3 (0.0-0.7) 10^3/uL Baso # (Auto) 0.0 (0.0-0.1) 10^3/uL Absolute Nucleated RBC 0.00 x10^3/uL Nucleated RBC % 0.0 /100WBC APTT 70.4 H 61.8 H (24.9-33.3) secs Sodium 130 L 130 L (135-145) mmol/L Potassium 4.1 4.0 (3.5-4.5) mmol/L Chloride 99 L 101 (101-111) mmol/L Carbon Dioxide 25 23 (21-32) mmol/L Anion Gap 6.0 6.0 (6-13) BUN 11 12 (6-20) mg/dL Creatinine 0.7 0.7 (0.6-1.3) mg/dL Estimated GFR (MDRD) 79 L 79 L (>89) Glucose 113 H 99 (74-104) mg/dL POC Whole Bld Glucose 101 (70-100) mg/dL Calcium 8.0 L 8.3 L (8.5-10.3) mg/dL Magnesium 2.8 H (1.7-2.3) mg/dL Iron (50-212) ug/dL TIBC (250-450) ug/dL % Saturation (20-50) % Transferrin (203-362) mg/dL Troponin I High Sens 495.5 H* (2.3-14.8) ng/L 10/27/24 10/27/24 10/27/24 Range/Units 21:31 17:04 14:55 WBC (4.8-10.8) x10^3/uL RBC (4.20-5.40) 10^6/uL Hgb (12.0-16.0) g/dL Hct (37.0-47.0) % MCV (81.0-99.0) fL MCH (27.0-31.0) pg MCHC (32.0-36.0) g/dL RDW (12.0-15.0) % Plt Count (130-450) 10^3/uL MPV (7.9-10.8) fL Neut # (Auto) (1.5-6.6) 10^3/uL Lymph # (Auto) (1.5-3.5) 10^3/uL Hill # (Auto) (0.0-1.0) 10^3/uL Eos # (Auto) (0.0-0.7) 10^3/uL Baso # (Auto) (0.0-0.1) 10^3/uL Absolute Nucleated RBC x10^3/uL Nucleated RBC % /100WBC APTT 30.8 (24.9-33.3) secs Sodium (135-145) mmol/L Potassium (3.5-4.5) mmol/L Chloride (101-111) mmol/L Carbon Dioxide (21-32) mmol/L Anion Gap (6-13) BUN (6-20) mg/dL Creatinine (0.6-1.3) mg/dL Estimated GFR (MDRD) (>89) Glucose (74-104) mg/dL POC Whole Bld Glucose 96 (70-100) mg/dL Calcium (8.5-10.3) mg/dL Magnesium 1.5 L (1.7-2.3) mg/dL Iron 20 L (50-212) ug/dL TIBC 188 L (250-450) ug/dL % Saturation 11 L (20-50) % Transferrin 134 L (203-362) mg/dL Troponin I High Sens 667.5 H* 575.9 H* (2.3-14.8) ng/L Assessment/Plan Problem List (1) Non-STEMI (non-ST elevated myocardial infarction): Impression: Telemetry has been in and out of sinus rhythm with periods of atrial fibrillation. Yesterday evening she showed some irregularities on her telemetry and therefore we did send a troponin. This was elevated, as was repeat several hours later. In the interim between troponins I did start a heparin drip. She has a history of aortic stenosis echocardiogram has been completed this admission and her aortic stenosis is not any worse. Cardiology at both [facility] and [facility] in [place] was consulted. The opinion of Dr. Mohr at [place] and Dr Abbe Dodge at [facility] is to heparinize the patient and start beta dedra. [facility] does not have any beds available but both facilities are willing to accept her in transfer for PCI if the family is insistent upon it. Both cardiologists make the point that coronary angiography will not change this patient's prognosis. The recommendation is to treat medically with heparin drip, follow enzymes, and treat with beta-dedra. We have scheduled metoprolol 5 mg every 6 hours, as patient is not currently taking oral medications. She has been on a heparin drip for approximately 12 hours and will continue this for several days. We will trend troponins. Offered to the family to transfer for coronary angiography if they would desire, but pointed out that this will not change prognosis for this patient. Family states understanding, and this afternoon, does not wish transfer for cardiology intervention. Laboratory Tests 10/24/24 10/27/24 10/27/24 04:19 17:04 21:31 Creatinine 1.3 Troponin I High Sens 575.9 H* 667.5 H* 10/28/24 10:04 Creatinine Troponin I High Sens 495.5 H* (2) Atrial fibrillation with RVR: Impression: This patient was loaded with digoxin and is currently getting digoxin 250 mcg daily via IV. Initially for atrial fibrillation with RVR she was transferred to the intensive care unit placed on a diltiazem drip. This was then converted over to oral diltiazem, which she has not been able to take. Her rate has been controlled, and i have abdandoned that medication. in light of her STEMI,I have started metoprolol 5mg IV q6h, with holding parameters. echocardiogram, her EF is lower than our last study in 2021, but her aortic stenosis is not considerably worse. Will need out patient cardiology followup. rate lowering medications have been effective. (3) Acute cerebrovascular accident (CVA): Impression: I called telestroke neurology at [place]. I spoke with Dr. Reilly. I discussed this new diagnosis of atrial fibrillation in light of her recent left frontal CVA. Dr. Reilly stated that the CVA was moderate-sized and that she would recommend waiting 5 days to start anticoagulation as long as there is no hemorrhagic conversion at this time. We will be obtaining an MRI of the brain in the near future although not while she is this hemodynamically unstable. Assuming there is no hemorrhagic conversion of the CVA we will start anticoagulation at about 5 days after the event. At the time that we start Eliquis we will stop the aspirin. Dr. Reilly recommends 2.5 mg of Eliquis p.o. twice daily given the patient's age and size. Renal function was discussed with Dr. Reilly, it is normal. MRI resulted. no hemorrhagic conversion. She is 5 days post event, Eliquis started for a fib today. ASA dc'ed today. she is on a statin for CVA prevention as well. Then, at the time she was to start Eliquis, her troponin because elevated. AT this time, she is on heparin, beta dedra. Statin and eliquis held due to no po meds right now; she refuses to swallow. Will re engage with therapies tomorrow. (4) Hyponatremia: Impression: Her sodium dropped very suddenly over the last 24 hours, unclear etiology. Her I/O are difficult to quantify given her urinary incontinence, inability to place bolton and difficulties in getting purewick to capture urine based on anatomical deformities. At this time I will stop the D5W and start NS at 100cc/hr for maintenance fluids, and monitor Na in the AM (5) Iron deficiency: Impression: She is not currently significantly anemic. Her iron stores are low and therefore I will replete with IV iron. Ferric Fluconate 125mg ordered this afternoon. 10/27/24 17:04 Iron 20 L TIBC 188 L % Saturation 11 L Transferrin 134 L (6) CKD (chronic kidney disease): Impression: Renal function normal. urine output is low and difficult to quantify. I am continuing to monitor this on a daily basis. Laboratory Tests 10/23/24 10/24/24 10/25/24 14:30 14:47 05:05 Creatinine 1.4 H 1.3 1.1 10/26/24 10/27/24 04:34 04:49 Creatinine 0.9 0.8 . (7) Hyperkalemia: Impression: Potassium of 5.3 on admission, unclear etiology, resolved. (8) Rectal carcinoma: Impression: Stage 4. ongoing treatment. She is on palliative chemo. 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 I was able to review records from [facility]. 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 palliative loop colostomy followed by excision of the mass which included the posterior vaginal wall, then some problems with healing of the wounds and ultimately required hyperbaric tx. (9) Low urine output: Impression: diffcult to quantify intake and output. Purewick is not effective. She told us that she is continent of urine at home. her daughter, who is a family practice H[employer]IC[employer]URE/[employer]ER tells me that she is often incontinent of urine at home. (10) Severe aortic stenosis: Impression: Chronic and unchanged, echocardiogram this admission confirms this. recommend outpatient cardiology followup. I have spent 55 minutes in the care of this patient today. This includes time [id number], review and ordering of diagnostic imaging and laboratory studies and consultation with other providers. Monitoring the patient's signs symptoms, evaluation of medication effectiveness and patient's response to treatment.
[2024-10-28] MEDS: SODIUM CHLORIDE 0.9% 1,000 ML IV SCH (18:05)
[2024-10-28] MEDS: FERRIC GLUCONATE 62.5 MG/5 ML VIAL IVP ONE (18:24)
[2024-10-28] MEDS: DEXTROSE 5%-0.9% NACL 1,000 ML IV SCH (19:04)
[2024-10-29 06:09] LABS: BASOPHILS % (AUTO) 0.4 %; EOSINOPHILS # (AUTO) 0.3 10^3/uL (0.0-0.7); EOSINOPHILS % (AUTO) 3.4 %; HCT - HEMATOCRIT 34.2 % (37.0-47.0); HGB - HEMOGLOBIN 10.5 g/dL (12.0-16.0); LYMPHOCYTES # (AUTO) 0.7 10^3/uL (1.5-3.5); LYMPHOCYTES % (AUTO) 9.2 %; MEAN CORPUSCULAR HEMOGLOBIN 29.3 pg (27.0-31.0); MEAN CORPUSCULAR HGB CONC 30.7 g/dL (32.0-36.0); MEAN CORPUSCULAR VOLUME 95.5 fL (81.0-99.0); MEAN PLATELET VOLUME 9.5 fL (7.9-10.8); MONOCYTES # (AUTO) 0.8 10^3/uL (0.0-1.0); MONOCYTES % (AUTO) 9.8 %; NEUTROPHILS # (AUTO) 6.1 10^3/uL (1.5-6.6); NEUTROPHILS % (AUTO) 76.8 %; PLT - PLATELET COUNT 275 10^3/uL (130-450); RED BLOOD COUNT 3.58 10^6/uL (4.20-5.40); RED CELL DISTRIBUTION WIDTH 21.6 % (12.0-15.0); WHITE BLOOD COUNT 7.9 x10^3/uL (4.8-10.8)
[2024-10-29 06:20] LABS: SLIDE REVIEW? Indicated
[2024-10-29 06:26] LABS: CREATININE 0.7 mg/dL (0.6-1.3)
[2024-10-29 06:36] LABS: PLATELET ESTIMATE, MANUAL NORMAL (130-450,000) (NORMAL); PLATELET MORPHOLOGY NORMAL APPEARANCE (NORMAL)
[2024-10-29 06:37] LABS: WBC MORPHOLOGY (MULTIPLE) NORMAL APPEARANCE (NORMAL)
[2024-10-29] MEDS: FERRIC GLUCONATE 125 MG in SODIUM CHLORIDE 0.9% 100ML 100 ML IV ONE ×2 (09:37→10:43)
--- NOTE | 2024-10-29 14:50 | Palliative Care ---
CC HPI Chief Complaint Chief Complaint: Stroke, aphasia History Obtained From Records Reviewed: Inpatient hospital History obtained from: Family Exam Limitations: Aphasia stroke History of Present Illness HPI: This is an 84-year-old female brought in by EMS on 10/23/24 with altered mental status found to have acute CVA with expressive aphasia, and right-sided weakness with facial droop. Today is day #7 since admission with no food intake. Daughter, Amy, son, Emory, and his , Mary are all present. Amy and Emory are co-DPOA's. Over the weekend, Edda went into atrial fibrillation with RVR and ended up having acute NSTEMI sometime between Tuesday and Tuesday. She has been receiving IV heparin drip for 24 hours and metoprolol 5 mg was started. She is able to swallow pills, but has refused oral food intake overall. She continues to be aphasic and cognition is questionable. Family is wanting to place a PEG tube for feedings and they are at a critical point where they must make a decision. Family states they had a conversation with Edda who shakes her head in agreement with them. She did not show any negative wincing or signs she did not want to have a PEG tube placed. ECHO showed severe valvular aortic stenosis, brain MRI showed moderate area of restricted diffusion within the left MCA territory. Age-related global volume loss and chronic microvascular ischemic changes are present. No intracranial masses or hemorrhage. Metoprolol 5 mg every 6 hours was started and she will be starting Eliquis 2.5 mg BID in a couple days. Edda's past medical history includes stage IV colorectal cancer with colectomy and colostomy, palliative oral chemotherapy capecitabine BID x 2 weeks, oxaliplatin and bevacizumab IV at [facility], and recent radiation necrosis hartman with perineal wound. She also has insomnia, anemia, history of GI bleed, severe aortic stenosis. It has been difficult to place [place] catheter due to anatomy modifications. Family states she has done surprisingly well since treatment started back in 2018. Edda has been living independently in her own home and functioning quite well until last week. Edda is unable to participate in ROS, remains aphasic, and currently bedbound. She is no longer a candidate for inpatient rehab and has excellent long-term care insurance per the family. POLST is full code which she changed in 2021 with PCP, SABRINA Ortiz. Edda had previously been DNR, but changed it due to grievances with another family members experience. Family does not think she truly understood what full code status meant versus what she had previously. She changed her status upon a hospital admission around 04/02/2022, when she had an acute kidney injury. Edda is a poor historian secondary to aphasia and acute CVA. Meds/Allgy Home Medications Ambulatory Orders Medication Instructions Recorded Confirmed capecitabine 500 mg tablet (Xeloda) 1,000 mg PO UD 03/30/22 10/23/24 acetaminophen 500 mg tablet 500 mg PO Q6H PRN fever or pain 07/04/24 10/23/24 multivitamin (Daily Multi-Vitamin 1 tab PO QDAY 07/04/24 10/23/24 tablet) pantoprazole 40 mg tablet,delayed 40 mg PO QDAY 07/04/24 10/23/24 release tramadol 50 mg tablet 50 mg PO QDAY PRN pain 07/04/24 10/23/24 losartan 25 mg tablet 25 mg PO DAILY PM 10/23/24 10/23/24 amitriptyline 10 mg tablet 10 mg PO .qhs 10/24/24 10/24/24 Allergies Allergies Allergy/AdvReac Type Severity Reaction Status Date / Time iodine Allergy Severe Anaphylaxis Verified 10/23/24 14:07 latex Allergy Unknown Verified 10/23/24 14:07 prednisone AdvReac Mild Emesis Verified 10/23/24 14:07 Palliative Care Performance Status Performance status: Continues to stay in bed while she is at the hospital. Acute weakness secondary to CVA. Was independent at home before any of this happened. Had a fall and was found lying down for unknown amount of time. Palliative Care Discussion: Family is interested in PEG tube feedings. They are asking questions like how long can someone have one? What is the average amount of time someone has a PEG tube for? Can someone be on hospice and actually have a PEG tube? We discussed pros and cons on each side and whether this was feasible in her condition and all that has been going on. Ultimately, they feel they have to honor her wishes and do everything. Family does not feel comfortable changing her POLST at this point. POLST was filled out March 2022 does not have any indication about medical nutrition on the back of POLST. Natalie Ahuja did not actually sign the report either, which is frustrating, but this is what is in the records. Family states they do not think she truly understood what she was signing and was scared of someone else's experience they had without full code status. They believe Edda was worried about what she was going through at the time when she redid it again. When I ask family if she would want to see herself like this they all reported, "no she would not," but they are not ready to let her go either. She has been having pain all over. She is able to nod her head or grimace according to family. It is best to ask "yes or no questions" directly to Edda so she can try to respond to you. Impression Impression: Edda is a 84-year-old petite, quiet elderly woman with history of stage IV Rectal adenocarcinoma. She had a moderate CVA on 10/23/2024 and brought into [facility]. They prefer being treated at [facility], but they are happy with the care they have received so far at . They are planning to meet with Dr. Edda Duke next for more specifics about PEG tube placement. If they do have surgery and everything is successful, I would request they be referred to palliative care for future assistance. It would be easier for them to get to hospice this way also. Vitals Vital Signs 10/23/24 13:35 10/23/24 13:55 10/23/24 14:09 10/23/24 14:37 10/23/24 15:08 10/23/24 15:15 10/23/24 15:38 10/23/24 15:45 10/23/24 16:03 10/23/24 18:09 10/23/24 19:15 10/23/24 20:19 10/23/24 20:46 10/23/24 20:54 10/24/24 01:00 10/24/24 05:00 10/24/24 08:15 10/24/24 10:00 10/24/24 12:55 10/24/24 13:00 10/24/24 13:20 10/24/24 14:37 10/24/24 16:02 10/24/24 21:00 10/25/24 00:57 10/25/24 05:00 10/25/24 08:28 10/25/24 11:00 10/25/24 11:13 10/25/24 11:14 10/25/24 11:36 10/25/24 11:46 10/25/24 12:25 10/25/24 12:25 10/25/24 13:00 10/25/24 13:00 10/25/24 14:00 10/25/24 15:00 10/25/24 16:00 10/25/24 17:00 10/25/24 18:00 10/25/24 18:12 10/25/24 19:00 10/25/24 20:00 10/25/24 21:00 10/25/24 22:00 10/25/24 23:00 10/25/24 23:47 10/26/24 00:00 10/26/24 01:00 10/26/24 02:00 10/26/24 02:31 10/26/24 03:00 10/26/24 04:00 10/26/24 05:00 10/26/24 05:20 10/26/24 05:30 10/26/24 06:00 10/26/24 07:00 10/26/24 08:00 10/26/24 09:00 10/26/24 10:00 10/26/24 11:00 10/26/24 12:00 10/26/24 13:00 10/26/24 14:00 10/26/24 15:00 10/26/24 16:00 10/26/24 17:00 10/26/24 17:31 10/26/24 18:00 10/26/24 18:00 10/26/24 19:00 10/26/24 20:00 10/26/24 21:00 10/26/24 22:00 10/26/24 23:00 10/27/24 00:00 10/27/24 00:39 10/27/24 01:00 10/27/24 02:00 10/27/24 03:00 10/27/24 04:00 10/27/24 05:00 10/27/24 06:00 10/27/24 06:19 10/27/24 07:20 10/27/24 08:00 10/27/24 09:00 10/27/24 10:00 10/27/24 10:00 10/27/24 11:00 10/27/24 12:30 10/27/24 14:00 10/27/24 16:10 10/27/24 17:15 10/27/24 21:15 10/27/24 23:35 10/28/24 00:37 10/28/24 05:05 10/28/24 09:15 10/28/24 11:09 10/28/24 11:23 10/28/24 12:17 10/28/24 15:43 10/28/24 16:17 10/28/24 20:17 10/28/24 22:13 10/28/24 23:56 10/29/24 04:57 10/29/24 05:03 10/29/24 08:00 10/29/24 09:10 10/29/24 10:00 10/29/24 11:15 10/29/24 11:20 10/29/24 11:25 10/29/24 11:35 10/29/24 15:00 10/29/24 15:53 10/29/24 16:27 10/29/24 19:55 10/29/24 22:17 10/29/24 23:57 10/30/24 00:45 10/30/24 01:12 10/30/24 04:42 10/30/24 04:46 10/30/24 07:57 10/30/24 09:44 10/30/24 11:55 10/30/24 12:07 10/30/24 12:15 10/30/24 15:50 10/30/24 17:42 10/30/24 17:53 10/30/24 20:42 10/30/24 21:09 Height 5 ft 3 in 5 ft 3 in 5 ft 3 in Weight 59.5 kg 54 kg 54 kg BMI 21.1 BP 162/92 H 152/90 H 155/94 H 151/95 H 149/96 H 145/91 H 145/91 H 140/89 H 143/89 H 139/88 H 157/98 H 154/98 H 150/91 H 114/69 116/70 120/66 119/72 106/54 L 107/51 L 108/63 121/76 130/82 125/87 111/77 112/71 114/74 10 9/76 110/73 115/79 134/75 H 133/77 H 124/89 128/93 H 162/108 H 112/74 151/78 H 154/78 H 158/76 H 164/97 H 147/80 H 151/77 H 147/70 H 151/84 H 159/82 H 146/75 H 134/90 H 159/82 H 159/76 H 156/65 H 142/75 H 179/98 H 152/88 H 147/82 H 156/75 H 158/123 H 166/73 H 150/75 H 164/93 H 161/114 H 166/104 H 166/104 H 176/76 H 176/76 H 160/91 H 143/84 H 170/73 H 147/78 H 135/75 H 125/62 125 /62 128/65 137/67 H 135/73 H 150/62 H 145/83 H 148/92 H 148/92 H 163/110 H 14 5/100 H 155/88 H 160/73 H 160/73 H 145/97 H 151/89 H 155/93 H 129/84 171/85 H 1 48/67 H 137/68 H 168/70 H 169/77 H 174/81 H 161/76 H 161/76 H 174/80 H 174/80 H 167/79 H 172/92 H 172/92 H 173/87 H 165/89 H 171/87 H 177/80 H 179/78 H 160/87 H 169/76 H 169/76 H 174/80 H 162/79 H 158/83 H 174/88 H 163/89 H 157/80 H 1 62/86 H 162/86 H 154/80 H 180/89 H 184/87 H 182/84 H 162/80 H 168/84 H 168/84 H 162/83 H BP Location Right Brachial BP Position Supine BP Cuff Size Adult BP Source Automatic Cuff Respiration 20 20 16 14 18 20 16 19 26 H 27 H 16 15 14 17 16 16 20 20 20 16 17 14 20 20 18 20 20 19 20 20 22 29 H 20 21 20 21 22 20 2 0 17 20 21 19 19 14 20 20 21 19 16 22 18 23 21 19 21 20 19 21 15 18 21 21 1 9 21 22 22 21 20 20 22 11 L 14 16 17 17 19 20 18 16 20 20 20 20 20 20 2 0 18 18 18 18 20 18 16 16 18 20 20 18 18 Pulse 106 H 102 H 103 H 102 H 103 H 101 H 102 H 102 H 102 H 106 H 106 H 99 106 H 92 90 97 93 111 H 110 H 114 H 114 H 104 H 107 H 105 H 103 H 107 H 179 H 166 H 136 H 132 H 141 H 137 H 139 H 79 88 80 80 101 H 96 87 89 74 90 77 75 68 63 69 65 78 87 90 91 103 H 65 64 75 71 76 88 74 70 84 69 75 80 94 90 9 8 87 89 84 90 90 77 74 67 74 68 77 74 78 87 82 129 H 78 101 H 86 87 86 79 107 H 83 83 91 79 74 71 72 64 72 76 74 80 85 81 89 70 82 62 75 84 76 72 71 71 71 8 2 81 88 84 88 86 81 81 85 64 85 65 70 73 78 80 81 Rhythm Regular Temp 36.1 C L 36.5 C 36.8 C 36.6 C 36.5 C 36.8 C 37 C 37.0 C 37.0 C 36.8 C 36.6 C 36.6 C 36.9 C 36.5 C 36.7 C 36.8 C 36.5 C 36.9 C 36.9 C 37.0 C 36.8 C 36.6 C 36.5 C 36.8 C 37.1 C 36.6 C 36.5 C 36.8 C 36.7 C 37.0 C 36.5 C 36.6 C 3 6.8 C 36.6 C 36.6 C 36.6 C 36.6 C 36.5 C 36.7 C 36.7 C 36.7 C 36.7 C 36.9 C 36.7 C 36.8 C Temp Source Rectal Temporal Artery Scan Temporal Artery Scan Tempo ral Artery Scan Temporal Artery Scan Temporal Artery Scan Temporal Artery Scan Temporal Artery Scan Temporal Artery Scan Temporal Artery Scan Temporal Marlene ry Scan Temporal Artery Scan Skin Axillary Axillary Skin Axillary Axillary Axillary Axillary Axillary Skin Ski n Temporal Artery Scan Temporal Artery Scan Temporal Artery Scan Tempo ral Artery Scan Temporal Artery Scan Temporal Artery Scan Skin Temporal Artery Scan Temporal Artery Scan Temporal Artery Scan Temporal Artery Scan Temporal Artery Scan Temporal Artery Scan Temporal Artery Scan Temporal Artery Scan Temporal Artery Scan Temporal Artery Scan Pulse Oximetry 92 97 94 95 93 94 91 L 93 93 94 95 99 96 96 98 96 97 98 95 96 95 97 96 95 95 96 98 96 97 92 96 97 93 96 95 95 95 93 93 92 95 93 93 92 94 91 L 94 97 95 97 94 98 98 98 99 99 97 97 96 97 98 95 95 9 6 96 97 96 98 98 97 96 94 96 98 97 97 94 100 97 96 95 94 96 97 98 92 95 96 98 96 94 97 97 97 96 95 96 97 98 98 100 98 Oxygen Delivery Method Room Air [facility] Active Problems All Active Problems (Updated 10/30/24 @ 22:35 by SANDRA Mcgee) Acute kidney injury superimposed on stage 3a chronic kidney disease (Acute) Hyponatremia (Acute) Iron deficiency (Acute) Atrial fibrillation with RVR (Acute) Low urine output (Acute) CKD (chronic kidney disease) (Acute) Hyperkalemia (Acute) Aphasia (Acute) Hemiparesis (Acute) Acute cerebrovascular accident (CVA) (Acute) Insomnia (Acute) Profound anemia (Acute) Gastric ulcer (Acute) Presence of sigmoid colostomy (Acute) Severe aortic stenosis (Chronic) Latex allergy (Chronic) Heart murmur (Chronic) Rectal carcinoma (Chronic) Medical History Medical History (Updated 10/30/24 @ 22:35 by SANDRA Mcgee) Acute renal insufficiency Colostomy in place Non-STEMI (non-ST elevated myocardial infarction) Abnormal urinalysis History of colorectal cancer Poor appetite GI bleeding Hypernatremia Dehydration Surgical History Surgical History H/O colectomy Social History Social History Smoking Status: Never smoker Living arrangement: At home Living Condition: Alone Relationship: Child Level: Independent Home Mobility Equipment: Cane and Walker History of Abuse: No Substance Use: denies use POLST Patient has POLST: Yes POLST Status: Full Code Review of Systems Status of ROS: unobtainable due to medical condition and See HPI Exam Exam Vital Signs: Vital Signs x48h Temp Pulse Pulse Resp BP BP Pulse Ox 10/29/24 11:35 36.6 C 71 18 160/87 H 97 10/29/24 11:25 36.6 C 72 18 179/78 H 94 10/29/24 11:20 36.6 C 76 18 177/80 H 96 10/29/24 11:15 84 171/87 H 10/29/24 10:00 36.6 C 75 18 165/89 H 98 10/29/24 09:10 62 10/29/24 08:00 36.8 C 82 20 173/87 H 96 Constitutional normal general appearance, average body habitus and level of alertness abnormal other (waxing and waning level of awareness) Fidgeting in bed HENMT normocephalic, head/scalp atraumatic, external ears normal and external nose normal Eyes No exudate or drainage Respiratory Did not listen to lungs. No problems with breathing currently Cardiovascular Did not listen to heart Gastrointestinal Did not listen to stomach Extremities normal to inspection and no deformity Neurology Aphasic. Unable to ambulate or use arms or legs secondary to CVA weakness Psychiatry orientation abnormal, affect abnormality noted (anxious), (labile) and (flat) and memory abnormal Skin skin color normal and skin turgor normal Assessment & Plan Assessment & Plan (1) Acute cerebrovascular accident (CVA): Code(s): I63.9 - Cerebral infarction, unspecified Plan: Too late to have tPA treatment, but being monitored and stay as extended secondary to refusal to eat. Will continue therapies when she gets everything squared away and start LAISHA. Will be on blood thinner apixaban 2.5 mg BID also. (2) Severe aortic stenosis: Code(s): I35.0 - Nonrheumatic aortic (valve) stenosis Plan: Ongoing, chronic Heart palpitations secondary to nonrheumatic aortic stenosis. Will be started on a beta-dedra here soon. This is what was recommended by cardiology at [facility]. (3) Atrial fibrillation with RVR: Code(s): I48.91 - Unspecified atrial fibrillation Plan: New onset A-fib with RVR. She also had an NSTEMI secondary to this [place] over the [place]; some time nobody knows exactly when. Will be starting on apixaban 2.5 mg BID once discharging from the hospital. (4) Acute kidney injury superimposed on stage 3a chronic kidney disease: Code(s): N17.9 - Acute kidney failure, unspecified; N18.31 - Chronic kidney disease, stage 3a Plan: Continues to have elevated BUN and creatinine and decreased eGFR. May be secondary to lying on the ground for couple hours 2/2 GLF. Unknown etiology. Kidney issues have been going on since 2019 off and on. Does suffer from hyponatremia though so the more water she drinks more so she is going to lose to find balance. Plan Family wants to move forward with the PEG tube placement. They feel it is the right thing to do since she is full code. Concerned that they would not change her POLST but now they understand they will be making decisions from here on out for her, unless she makes a full recovery. It is a possibility but again is also unlikely if she continues to have multiple things happen while she is still in the hospital. Medications: Discontinued eszopiclone Discontinued Reason: Completed therapy 1 mg PO .at bedtime 90 tabs 0RF insomnia G47.01 - Insomnia due to medical condition
--- NOTE | 2024-10-29 15:39 | PROVIDER PROGRESS NOTE ---
Subjective Prog Note Date Prog Note Date: 10/29/24 Subjective Subjective: She remains about the same, aphasic, responds to almost all questions and conversation in the affirmative. Current Medications Current Medications Current Medications: Current Medications Generic Name Dose Route Start Last Admin Trade Name Freq PRN Reason Stop Dose Admin Acetaminophen 1,000 mg 10/28/24 07:42 Acetaminophen 500 Mg Tablet PO Q6HR PRN Pain or Fever > 38C (100.4F) Amitriptyline HCl 10 mg 10/27/24 21:00 10/28/24 20:09 Amitriptyline 10 Mg Tablet PO Not Given NIGHTLY JAYLA Digoxin 250 mcg 10/27/24 17:55 10/29/24 09:10 Digoxin 500 Mcg/2 Ml Amp IVP 250 mcg DAILY JAYLA Administration Heparin Sodium (Porcine) 1,000 - 2,000 unit 10/27/24 21:00 10/29/24 00:48 Heparin 1,000 Unit/Ml Vial IVP 2,000 unit Q6H PRN Administration aPTT <50 Protocol Hydromorphone HCl 0.5 mg 10/28/24 11:29 Hydromorphone 0.5 Mg/0.5 Ml Syringe IVP Q2H PRN Severe Pain (Level 7-10) Heparin Sodium/Sodium Chloride 25,000 unit in 500 mls @ 12.96 mls/hr 10/27/24 21:00 10/29/24 10:36 Heparin/0.45% Nacl IV 14 unit/kg/hr .[id number] JAYLA 15.12 mls/hr Administration Protocol 12 UNIT/KG/HR Dextrose/Sodium Chloride 1,000 mls @ 100 mls/hr 10/28/24 19:00 10/29/24 10:43 D5ns IV 100 mls/hr .Q10H JAYLA Infusion Ketorolac Tromethamine 15 mg 10/28/24 11:27 10/29/24 08:06 Ketorolac 15 Mg/Ml Vial IVP 11/02/24 11:26 15 mg Q6HR PRN Administration Severe Pain (Level 7-10) Lorazepam 1 mg 10/26/24 22:00 10/28/24 22:12 Lorazepam 2 Mg/Ml Vial IVP 1 mg HS JAYLA Administration Losartan Potassium 25 mg 10/27/24 12:00 10/28/24 20:09 Losartan 50 Mg Tablet PO Not Given QPM JAYLA Metoprolol Tartrate 5 mg 10/28/24 11:00 10/29/24 11:15 Metoprolol 5 Mg/5 Ml Vial IVP 5 mg Q6H JAYLA Administration Multivitamins/Minerals 1 tab 10/26/24 12:00 10/29/24 09:13 Multivitamin W/Minerals Tablet PO Not Given DAILYWM JAYLA Ondansetron HCl 4 mg 10/23/24 20:45 Ondansetron 4 Mg/2 Ml Vial IVP Q6HR PRN Nausea / Vomiting Pantoprazole Sodium 40 mg 10/28/24 07:00 10/29/24 07:03 Pantoprazole 40 Mg Tablet PO Not Given QDAC JAYLA Prochlorperazine Edisylate 10 mg 10/23/24 20:45 Prochlorperazine 10 Mg/2 Ml Vial IVP Q6HR PRN Nausea / Vomiting Sodium Chloride 10 ml 10/23/24 20:45 10/27/24 07:10 Sodium Chloride Flush 0.9% 10 Ml Syringe IVP 10 ml PRN PRN Administration NEEDED PER PROVIDER ORDERS Sodium Chloride 10 ml 10/24/24 01:00 10/29/24 09:13 Sodium Chloride Flush 0.9% 10 Ml Syringe IVP 10 ml 0100,0900,1700 JAYLA Administration Zinc Oxide 113 gm 10/25/24 06:00 Cod Liver Oil/Zinc Oxide 113 Gm Tube TOP PRN PRN Skin Care Objective Vital Signs/Intake & Output Reviewed Vital Signs: Yes Vital Signs: Vital Signs x48h Temp Pulse Pulse Resp BP BP Pulse Ox 10/29/24 11:35 36.6 C 71 18 160/87 H 97 10/29/24 11:25 36.6 C 72 18 179/78 H 94 10/29/24 11:20 36.6 C 76 18 177/80 H 96 10/29/24 11:15 84 171/87 H 10/29/24 10:00 36.6 C 75 18 165/89 H 98 10/29/24 09:10 62 10/29/24 08:00 36.8 C 82 20 173/87 H 96 Intake & Output: Intake & Output 10/26/24 10/27/24 10/28/24 10/29/24 23:59 23:59 23:59 23:59 Intake Total 2323 / 2323 2058 2846 / 2846 1837 / 1837 Output Total 250 / 250 750 / 750 1150 / 1150 1275 / 1275 Balance 2072 1309 / 1309 1696 / 1696 562 / 562 Weight (kg) 54 kg Objective General Appearance: positive No acute distress and Alert Eyes Bilateral: positive No scleral icterus ENT: positive ENT inspection nml Neck: positive Nml inspection Respiratory: positive Chest non-tender and Breath sounds nml Cardiovascular: positive Systolic murmur (Loud holosystolic murmur) Abdomen: positive Non-tender Skin: positive Color nml Extremities: positive Non-tender, No pedal edema and Joint swelling (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 ) Neurologic/Psychiatric: positive Other (She is less engaged today. She is sleepy, does not follow conversations in the room as closely) Lab Results 10/29/24 05:50 10/29/24 05:50 Other Labs: Lab Results x24hrs 10/29/24 10/29/24 10/28/24 Range/Units 05:50 05:50 23:51 WBC 7.9 (4.8-10.8) x10^3/uL RBC 3.58 L (4.20-5.40) 10^6/uL Hgb 10.5 L (12.0-16.0) g/dL Hct 34.2 L (37.0-47.0) % MCV 95.5 (81.0-99.0) fL MCH 29.3 (27.0-31.0) pg MCHC 30.7 L (32.0-36.0) g/dL RDW 21.6 H (12.0-15.0) % Plt Count 275 (130-450) 10^3/uL MPV 9.5 (7.9-10.8) fL Neut # (Auto) 6.1 (1.5-6.6) 10^3/uL Lymph # (Auto) 0.7 L (1.5-3.5) 10^3/uL Greene # (Auto) 0.8 (0.0-1.0) 10^3/uL Eos # (Auto) 0.3 (0.0-0.7) 10^3/uL Baso # (Auto) 0.0 (0.0-0.1) 10^3/uL Absolute Nucleated RBC 0.00 x10^3/uL Nucleated RBC % 0.0 /100WBC Manual Slide Review Indicated WBC Morphology NORMAL APPEARANCE (NORMAL) Platelet Estimate NORMAL (130-450,000) (NORMAL) Platelet Morphology NORMAL APPEARANCE (NORMAL) RBC Morph Micro Appear 1+ OVALOCYTES 1+ ANISOCYTOSIS (NORMAL) APTT 186.0 H* 32.5 (24.9-33.3) secs Sodium 133 L (135-145) mmol/L Potassium 4.0 (3.5-4.5) mmol/L Chloride 103 (101-111) mmol/L Carbon Dioxide 24 (21-32) mmol/L Anion Gap 6.0 (6-13) BUN 10 (6-20) mg/dL Creatinine 0.7 (0.6-1.3) mg/dL Estimated GFR (MDRD) 79 L (>89) Glucose 117 H (74-104) mg/dL POC Whole Bld Glucose (70-100) mg/dL Calcium 8.0 L (8.5-10.3) mg/dL Troponin I High Sens 308.3 H* (2.3-14.8) ng/L 10/28/24 10/28/24 Range/Units 18:20 16:36 WBC (4.8-10.8) x10^3/uL RBC (4.20-5.40) 10^6/uL Hgb (12.0-16.0) g/dL Hct (37.0-47.0) % MCV (81.0-99.0) fL MCH (27.0-31.0) pg MCHC (32.0-36.0) g/dL RDW (12.0-15.0) % Plt Count (130-450) 10^3/uL MPV (7.9-10.8) fL Neut # (Auto) (1.5-6.6) 10^3/uL Lymph # (Auto) (1.5-3.5) 10^3/uL Greene # (Auto) (0.0-1.0) 10^3/uL Eos # (Auto) (0.0-0.7) 10^3/uL Baso # (Auto) (0.0-0.1) 10^3/uL Absolute Nucleated RBC x10^3/uL Nucleated RBC % /100WBC Manual Slide Review WBC Morphology (NORMAL) Platelet Estimate (NORMAL) Platelet Morphology (NORMAL) RBC Morph Micro Appear (NORMAL) APTT 44.7 H (24.9-33.3) secs Sodium (135-145) mmol/L Potassium (3.5-4.5) mmol/L Chloride (101-111) mmol/L Carbon Dioxide (21-32) mmol/L Anion Gap (6-13) BUN (6-20) mg/dL Creatinine (0.6-1.3) mg/dL Estimated GFR (MDRD) (>89) Glucose (74-104) mg/dL POC Whole Bld Glucose 76 (70-100) mg/dL Calcium (8.5-10.3) mg/dL Troponin I High Sens (2.3-14.8) ng/L Assessment/Plan Problem List (1) Non-STEMI (non-ST elevated myocardial infarction): Impression: Telemetry has been in and out of sinus rhythm with periods of atrial fibrillation. she showed some irregularities on her telemetry which prompted sending a troponin. This was elevated, as was repeat several hours later. She has now completed 48h of heparin gtt, which was the recommendation of cardiology. her troponin has trended down. She has a history of aortic stenosis. echocardiogram has been completed this admission and her aortic stenosis is not any worse. Cardiology at both [facility] and [facility] in [place] was consulted. The opinion of Dr. Mohr at [place] and Dr Abbe Dodge at [facility] is to heparinize the patient and start beta dedra. [facility] does not have any beds available but both facilities are willing to accept her in transfer for PCI if the family is insistent upon it. Both cardiologists make the point that coronary angiography will not change this patient's prognosis. The recommendation is to treat medically with heparin drip, follow enzymes, and treat with beta-dedra. These recommendations have been carried forth. We have scheduled metoprolol 5 mg every 6 hours, as patient is not currently taking oral medications. She has completed 48h heparinization. Laboratory Tests 10/27/24 10/27/24 10/28/24 17:04 21:31 10:04 Troponin I High Sens 575.9 H* 667.5 H* 495.5 H* 10/29/24 05:50 Troponin I High Sens 308.3 H* (2) Atrial fibrillation with RVR: Impression: This patient was loaded with digoxin and is currently getting digoxin 250 mcg daily via IV. Should check dig level after about 6 doses. Initially for atrial fibrillation with RVR she was transferred to the intensive care unit placed on a diltiazem drip. This was then converted over to oral diltiazem, which she has not been able to take. Her rate has been controlled, and i have abdandoned that medication. in light of her STEMI,I have started metoprolol 5mg IV q6h, with holding parameters. echocardiogram, her EF is lower than our last study in 2021, but her aortic stenosis is not considerably worse. Will need out patient cardiology followup. rate lowering medications have been effective. As I transition her off heparin gtt, will start therapeutically dosed lovenox. She is not able to swallow Eliquis. (3) Acute cerebrovascular accident (CVA): Impression: I called telestroke neurology at [place]. I spoke with Dr. Reilly. I discussed this new diagnosis of atrial fibrillation in light of her recent left frontal CVA. Dr. Reilly stated that the CVA was moderate-sized and that she would recommend waiting 5 days to start anticoagulation as long as there is no hemorrhagic conversion at this time. We will be obtaining an MRI of the brain in the near future although not while she is this hemodynamically unstable. Assuming there is no hemorrhagic conversion of the CVA we will start anticoagulation at about 5 days after the event. At the time that we start Eliquis we will stop the aspirin. Dr. Reilly recommends 2.5 mg of Eliquis p.o. twice daily given the patient's age and size. Renal function was discussed with Dr. Reilly, it is normal. MRI resulted. no hemorrhagic conversion. She is 5 days post event, Eliquis started for a fib ASA ks'ed at that time. she is on a statin for CVA prevention as well. Then, at the time she was to start Eliquis, her troponin became elevated. Statin and eliquis held due to no po meds right now; she is unable to swallow. The majority of her issues today centered around her swallow. She has been 6 days without nutrition. She has been resistant to swallowing. Family is interested in her getting nutrition. CROSSING GATEMAN concerned about the barriers that NG feeding tube places on working on swallow. PEG is a consideration. I discussed ramifications of PEG with the family. She is recovering from a NSTEMI. She is a high anesthesis risk d/t this and her severe . PEG is not a risk free procedure, aside from the anesthesia risk. this patient continues to have health events that increase her risk for invasive procedures. I asked the patient's family to meet with Palliative care, and I consulted SANDRA Mcgee, to meet with family and discuss the potential ramification of placement of permanent feeding tube. Family decided to proceed. They would like to honor their mother's wishes WRT full code/full care. I have discussed the case with Dr Duke of general surgery. She requested that most recent CT A/P images be pushed here from [facility]. She will meet with patient and family tomorrow to discuss PEG. (4) Hyponatremia: Impression: Her sodium dropped very suddenly 139 to 130. Her I/O are difficult to quantify given her urinary incontinence, inability to place bolton and difficulties in getting purewick to capture urine based on anatomical deformities. I stopped the D5W and started NS at 100cc/hr for maintenance fluids, Na improved to 133. Due to availability of fluids, she is currently on D5 1/2 NS at 75ml/hr. (5) Iron deficiency: Impression: She is not currently significantly anemic. Her iron stores are low and therefore I will replete with IV iron. Ferric Fluconate 125mg given for repletion. 10/27/24 17:04 Iron 20 L TIBC 188 L % Saturation 11 L Transferrin 134 L (6) CKD (chronic kidney disease): Impression: Renal function normal. urine output is low and difficult to quantify. I am continuing to monitor this on a daily basis. (7) Hyperkalemia: Impression: Potassium of 5.3 on admission, unclear etiology, resolved. (8) Rectal carcinoma: Impression: Stage 4. ongoing treatment. She is on palliative chemo. 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 I was able to review records from [facility]. 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 palliative loop colostomy followed by excision of the mass which included the posterior vaginal wall, then some problems with healing of the wounds and ultimately required hyperbaric tx. (9) Low urine output: Impression: diffcult to quantify intake and output. Purewick is not effective. She told us that she is continent of urine at home. her daughter, who is a family practice [employer] tells me that she is often incontinent of urine at home. (10) Severe aortic stenosis: Impression: Chronic and unchanged, echocardiogram this admission confirms this. recommend outpatient cardiology followup. I have spent 65 minutes in the care of this patient today. This includes time [id number], review and ordering of diagnostic imaging and laboratory studies and consultation with other providers. Monitoring the patient's signs symptoms, evaluation of medication effectiveness and patient's response to treatment.
[2024-10-29] MEDS: DEXTROSE 5%-0.45% NACL 1,000 ML IV SCH (17:29)
[2024-10-29] MEDS: ENOXAPARIN 60 MG/0.6 ML SYRINGE SUBQ SCH (22:57)
[2024-10-30 05:56] LABS: BASOPHILS % (AUTO) 0.4 %; EOSINOPHILS # (AUTO) 0.2 10^3/uL (0.0-0.7); EOSINOPHILS % (AUTO) 2.5 %; HGB - HEMOGLOBIN 11.2 g/dL (12.0-16.0); LYMPHOCYTES # (AUTO) 0.8 10^3/uL (1.5-3.5); LYMPHOCYTES % (AUTO) 8.3 %; MEAN CORPUSCULAR HEMOGLOBIN 29.5 pg (27.0-31.0); MEAN CORPUSCULAR HGB CONC 30.3 g/dL (32.0-36.0); MEAN CORPUSCULAR VOLUME 97.4 fL (81.0-99.0); MEAN PLATELET VOLUME 9.8 fL (7.9-10.8); NEUTROPHILS # (AUTO) 7.5 10^3/uL (1.5-6.6); NEUTROPHILS % (AUTO) 78.4 %; PLT - PLATELET COUNT 295 10^3/uL (130-450); RED CELL DISTRIBUTION WIDTH 21.2 % (12.0-15.0); WHITE BLOOD COUNT 9.5 x10^3/uL (4.8-10.8)
[2024-10-30 06:08] LABS: CREATININE 0.7 mg/dL (0.6-1.3); POTASSIUM 3.9 mmol/L (3.5-4.5)
[2024-10-30 06:09] LABS: SLIDE REVIEW? Indicated
[2024-10-30 06:47] LABS: PLATELET ESTIMATE, MANUAL NORMAL (130-450,000) (NORMAL); PLATELET MORPHOLOGY NORMAL APPEARANCE (NORMAL)
[2024-10-30] MEDS: KETOROLAC 30 MG/ML VIAL IVP PRN (12:58)
--- NOTE | 2024-10-30 15:33 | XRAY Report ---
PROCEDURE: XR Chest 1V INDICATIONS: coarse breath sounds TECHNIQUE: One view of the chest was acquired. COMPARISON: Chest radiograph 10/23/2024. FINDINGS: Surgical changes and devices: Right chest port catheter with distal tip projecting over the lower SV C. Lungs and pleura: No pneumothorax. Query small left pleural effusion versus overlying soft tissue. N o focal dense airspace consolidation.. Mediastinum: Mediastinal contours appear normal. Heart size is normal. Aortic arch is calcified i ndicating atherosclerosis. Bones and chest wall: No suspicious bony lesions. Overlying soft tissues appear unremarkable. IMPRESSION: Compared to prior radiograph 10/23/2024, query small left pleural effusion with subjacent atelectasis. No focal dense airspace consolidation. Reviewed by: Fidelia Shannon MD, PhD on 10/30/2024 3:31 PM PDT Approved by: Fidelia Shannon MD, PhD on 10/30/2024 3:31 PM PDT Station ID: [id number]
--- NOTE | 2024-10-30 17:16 | PT Plan of Care ---
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 Initially admitted with L frontoparietal CVA, now s/p NSTEMI. Pt continues to present with R > L sided deficits in strength and mobility, however primary deficits present as mixed expressive/receptive aphasia with limited ability to follow cues. Pt continues to present with reduced ability to hold gaze, attend to task or follow cueing. Able to follow simple 1-2 step commands approx 10% of the time. Inconsistent response to Y/N questions. Active movement of all 4 limbs noted with mild to moderate R sided weakness compared to L. Pt was able to sit at EOB x1-2 minutes today but requires maxAx2 for transfer and intermittent minAx1 for sitting at EOB. Per pt's family, she prefers offloading R side when sitting upright d/t extensive skin breakdown from previous treatments for rectal cancer. Given complexity of medical status and ongoing mobility deficits, pt may benefit from continued skilled PT in acute setting to improve upright tolerance and progress functional mobility. PT now recommending dc to SNF rather than IPR as pt is too medically fragile and will not tolerate 3 hours of therapy daily. Will continue to follow pt progress and will update dc recs closer to time of dc. Patient/ Family Goals Patient/Family Goals Go home to cats Goals Improve bed mobility to: Minimal Assist Improve supine to sit to: Minimal Assist Improve sit to stand to: Minimal Assist Improve pivot transfer ability Minimal Assist to: Improve sit to supine to: Minimal Assist Improve gait ability to: Min A Assistive Device Used: None,Front Wheeled Walker Improve Sitting Balance to: Good Improve Standing Balance to: Fair PT Plan of Care Frequency 1-2x/day Duration Until goals are met Discharge Recommendations [facility] Other TBD Transport Needs at Discharge [facility] Other BLS d/t confusion, absent verbal communication, and unable to sit upright
--- NOTE | 2024-10-30 17:25 | CONSULTATION NOTE ---
Referring Provider Name of Referring Provider:: Jose A Mariee) Consult Date: 10/30/24 Chief Complaint Chief Complaint Chief Complaint: Possible PEG History of Present Illness Admitted From Admitted From:: ED History Obtained From Records Reviewed: yes History obtained from: primary team, records Exam Limitations: patient is aphasic History of Present Illness HPI Comment/Other: This is a 84-year-old female who has a history of stage IV colorectal cancer for which she has a loop colostomy and has undergone surgery, chemotherapy, and radiation. She is currently on palliative chemotherapy for this. The patient has a longstanding history of severe aortic stenosis. The patient was admitted for an acute stroke which has caused her to be aphasic and to become "increasingly resistent to feeding." Since her stroke, the patient has also been found to go in and out of A-fib with rapid ventricular rate, and about 4 days ago had a type II LA. She has completed 48 hours of heparin and her troponin has trended down. At this time, I am asked to evaluate the patient for possible PEG tube placement. Of note, the patient has not had an NG tube or Dobbhoff tube placed for nutrition since her admission. Patient does have a history of gastric ulcers and GI bleeding. The majority of the patient's records are at [facility] where she usually receives care. I was able to speak with the patient's son, [id number], daughter, and son-in-law. PFS Active Problems All Active Problems (Updated 10/28/24 @ 17:23 by JENNIFER Carlson) Hyponatremia (Acute) Iron deficiency (Acute) Atrial fibrillation with RVR (Acute) Low urine output (Acute) CKD (chronic kidney disease) (Acute) Hyperkalemia (Acute) Aphasia (Acute) Hemiparesis (Acute) Acute cerebrovascular accident (CVA) (Acute) Acute renal insufficiency (Acute) Insomnia (Acute) Profound anemia (Acute) Gastric ulcer (Acute) Presence of sigmoid colostomy (Acute) Severe aortic stenosis (Chronic) Latex allergy (Chronic) Heart murmur (Chronic) Rectal carcinoma (Chronic) Medical History Medical History (Updated 10/28/24 @ 17:23 by JENNIFER Carlson) Colostomy in place Non-STEMI (non-ST elevated myocardial infarction) Abnormal urinalysis History of colorectal cancer Poor appetite GI bleeding PENNY (acute kidney injury) Hypernatremia Dehydration Surgical History Surgical History H/O colectomy Social History Social History Smoking Status: Never smoker Living arrangement: At home Living Condition: Alone Relationship: Child Level: Independent Home Mobility Equipment: Cane and Walker History of Abuse: No Substance Use: denies use POLST Patient has POLST: No Meds/Allgy Home Medications Ambulatory Orders Medication Instructions Recorded Confirmed capecitabine 500 mg tablet (Xeloda) 1,000 mg PO UD 03/30/22 10/23/24 acetaminophen 500 mg tablet 500 mg PO Q6H PRN fever or pain 07/04/24 10/23/24 multivitamin (Daily Multi-Vitamin 1 tab PO QDAY 07/04/24 10/23/24 tablet) pantoprazole 40 mg tablet,delayed 40 mg PO QDAY 07/04/24 10/23/24 release tramadol 50 mg tablet 50 mg PO QDAY PRN pain 07/04/24 10/23/24 losartan 25 mg tablet 25 mg PO DAILY PM 10/23/24 10/23/24 amitriptyline 10 mg tablet 10 mg PO .qhs 10/24/24 10/24/24 Allergies Allergies Allergy/AdvReac Type Severity Reaction Status Date / Time iodine Allergy Severe Anaphylaxis Verified 10/23/24 14:07 latex Allergy Unknown Verified 10/23/24 14:07 prednisone AdvReac Mild Emesis Verified 10/23/24 14:07 Results Lab Results Lab results reviewed: Yes 10/30/24 05:12 10/30/24 05:12 Other Lab Results: Lab Results x24hrs 10/30/24 10/30/24 10/29/24 Range/Units 05:12 05:12 20:53 WBC 9.5 (4.8-10.8) x10^3/uL RBC 3.80 L (4.20-5.40) 10^6/uL Hgb 11.2 L (12.0-16.0) g/dL Hct 37.0 (37.0-47.0) % MCV 97.4 (81.0-99.0) fL MCH 29.5 (27.0-31.0) pg MCHC 30.3 L (32.0-36.0) g/dL RDW 21.2 H (12.0-15.0) % Plt Count 295 (130-450) 10^3/uL MPV 9.8 (7.9-10.8) fL Neut # (Auto) 7.5 H (1.5-6.6) 10^3/uL Lymph # (Auto) 0.8 L (1.5-3.5) 10^3/uL [place] # (Auto) 1.0 (0.0-1.0) 10^3/uL Eos # (Auto) 0.2 (0.0-0.7) 10^3/uL Baso # (Auto) 0.0 (0.0-0.1) 10^3/uL Absolute Nucleated RBC 0.00 x10^3/uL Nucleated RBC % 0.0 /100WBC Manual Slide Review Indicated Platelet Estimate NORMAL (130-450,000) (NORMAL) Platelet Morphology NORMAL APPEARANCE (NORMAL) RBC Morph Micro Appear 1+ OVALOCYTES 1+ ANISOCYTOSIS (NORMAL) APTT 33.4 H (24.9-33.3) secs Sodium 133 L (135-145) mmol/L Potassium 3.9 (3.5-4.5) mmol/L Chloride 104 (101-111) mmol/L Carbon Dioxide 23 (21-32) mmol/L Anion Gap 6.0 (6-13) BUN 11 (6-20) mg/dL Creatinine 0.7 (0.6-1.3) mg/dL Estimated GFR (MDRD) 79 L (>89) Glucose 110 H (74-104) mg/dL Calcium 8.0 L (8.5-10.3) mg/dL Troponin I High Sens 222.6 H* (2.3-14.8) ng/L Diagnostic Imaging Results Diagnostic Imaging Results: positive Final report reviewed and Read independently Diagnostic Imaging Results Comments: I was able to personally interpret the images from the patient's CT scan done on 05/02/2024 of her chest which goes down to the upper part of her abdomen. The patient's stomach sits against her anterior abdominal wall in her upper abdomen. I also reviewed a report from this study. Exam Exam Vital Signs: Vital Signs x48h Temp Pulse Pulse Resp BP BP Pulse Ox 10/30/24 15:50 98.1 F 73 18 162/80 H 100 10/30/24 12:15 70 20 182/84 H 98 10/30/24 12:07 98.4 F 65 20 184/87 H 98 10/30/24 11:55 85 180/89 H 10/30/24 09:44 64 GEN: No acute distress HEENT: NCAT, MMM, EOMI NEURO: Aphasic, opens eyes to voice, follows me throughout the room CV: RRR, PULM: Nonlabored, on room air ABD: soft, non tender, no rebound or guarding, ostomy pink and productive CIRCULATORY: no clubbing, cyanosis, or edema Conclusion/Plan Problem List (1) Non-STEMI (non-ST elevated myocardial infarction): (2) Atrial fibrillation with RVR: (3) Acute cerebrovascular accident (CVA): (4) Hyponatremia: (5) Iron deficiency: (6) CKD (chronic kidney disease): (7) Hyperkalemia: (8) Rectal carcinoma: (9) Low urine output: (10) Severe aortic stenosis: Plan 84 y/o F with multiple acute and long standing comorbidities which raise her risk for any procedure significantly beyond that of the average patient. Her recent stroke and LA as well as her surgical history and severe aortic stenosis all increase her risk. At this time, the patient has not had any nutrition since her admission. She is aphasic and has not been participating with speech therapy for the last several days. They have discussed options for feeding with the family who are interested in pursuing a PEG tube. Given this patient's very sinuous hospital course and overall frail medical status, I believe she would benefit from a period of feeding via a Dobhoff tube for at least 7 days to see if this improves her participation and ability to take oral nutrition. A PEG tube carries with it the risk of damaging surrounding structures or becoming dislodged, either of which would require emergent surgery. A PEG MUST remain in place for at least 6 weeks after placement, even if it is not needed. I have asked anesthesia for their opinion on the patient's risk from an anesthesia standpoint. I have discussed my concerns and the above plan with the primary team (JENNIFER Aquino) and the patient and her family. I had a lengthy discussion with the patient's family today. They are trying to honor the patient's wishes and appreciate that she has been living independently prior to this hospitalization. They recognize she has had a difficult hospital course and that her prognosis is poor at this time. They want to feel like they have supported her and given her every option. Once I explained that the Dobhoff is soft and that she absolutely can participate in speech therapy with the tube, they were excited about this option. They also like that the Dobhoff can easily be removed. I also explained the risks of the PEG and need for it to remain in place, as outlined above. The family do not want to put the patient through an invasive procedure at this time, and understand this may not be an option for her at this facility due to her medical comorbidities. Lab Results Lab results reviewed: Yes 10/30/24 05:12 10/30/24 05:12 Diagnostic Imaging Results Diagnostic Imaging Results: positive Final report reviewed and Read independently
--- NOTE | 2024-10-30 17:43 | PROVIDER PROGRESS NOTE ---
Subjective Prog Note Date Prog Note Date: 10/30/24 Subjective Subjective: I have been at the bedside multiple times today. Family has consulted with Dr Duke and agrees to dobhoff placement. they are starting to understand why PEG is risky at this time. Gabriela is doing OK. She has been awake and alert at times, and per her family is answering questions appropriately, yes/no. Current Medications Current Medications Current Medications: Current Medications Generic Name Dose Route Start Last Admin Trade Name Freq PRN Reason Stop Dose Admin Digoxin 250 mcg 10/27/24 17:55 10/30/24 09:44 Digoxin 500 Mcg/2 Ml Amp IVP 250 mcg DAILY JAYLA Administration Enoxaparin Sodium 60 mg 10/29/24 23:00 10/30/24 11:55 Enoxaparin 60 Mg/0.6 Ml Syringe SUBQ 60 mg Q12H JAYLA Administration Hydromorphone HCl 0.5 mg 10/28/24 11:29 Hydromorphone 0.5 Mg/0.5 Ml Syringe IVP Q2H PRN Severe Pain (Level 7-10) Dextrose/Sodium Chloride 1,000 mls @ 75 mls/hr 10/29/24 17:00 10/30/24 06:57 D5.45ns IV 75 mls/hr .[id number] JAYLA Administration Ketorolac Tromethamine 15 mg 10/30/24 12:51 10/30/24 12:58 Ketorolac 30 Mg/Ml Vial IVP 11/02/24 11:26 15 mg Q6HR PRN Administration Severe Pain (Level 7-10) Lorazepam 1 mg 10/26/24 22:00 10/29/24 22:03 Lorazepam 2 Mg/Ml Vial IVP 1 mg HS JAYLA Administration Metoprolol Tartrate 5 mg 10/28/24 11:00 10/30/24 11:55 Metoprolol 5 Mg/5 Ml Vial IVP 5 mg Q6H JAYLA Administration Multivitamins/Minerals 1 tab 10/26/24 12:00 10/30/24 09:44 Multivitamin W/Minerals Tablet PO Not Given DAILYWM JAYLA Ondansetron HCl 4 mg 10/23/24 20:45 Ondansetron 4 Mg/2 Ml Vial IVP Q6HR PRN Nausea / Vomiting Pantoprazole Sodium 40 mg 10/28/24 07:00 10/30/24 06:12 Pantoprazole 40 Mg Tablet PO Not Given QDAC JAYLA Prochlorperazine Edisylate 10 mg 10/23/24 20:45 Prochlorperazine 10 Mg/2 Ml Vial IVP Q6HR PRN Nausea / Vomiting Sodium Chloride 10 ml 10/23/24 20:45 10/27/24 07:10 Sodium Chloride Flush 0.9% 10 Ml Syringe IVP 10 ml PRN PRN Administration NEEDED PER PROVIDER ORDERS Sodium Chloride 10 ml 10/24/24 01:00 10/30/24 09:45 Sodium Chloride Flush 0.9% 10 Ml Syringe IVP 10 ml 0100,0900,1700 JAYLA Administration Zinc Oxide 113 gm 10/25/24 06:00 Cod Liver Oil/Zinc Oxide 113 Gm Tube TOP PRN PRN Skin Care Objective Vital Signs/Intake & Output Reviewed Vital Signs: Yes Vital Signs: Vital Signs x48h Temp Pulse Pulse Resp BP BP Pulse Ox 10/30/24 15:50 36.7 C 73 18 162/80 H 100 10/30/24 12:15 70 20 182/84 H 98 10/30/24 12:07 36.9 C 65 20 184/87 H 98 10/30/24 11:55 85 180/89 H 10/30/24 09:44 64 Intake & Output: Intake & Output 10/27/24 10/28/24 10/29/24 10/30/24 23:59 23:59 23:59 23:59 Intake Total 2059 / 2059 2846 / 2846 2446 / 2446 1000 / 1000 Output Total 750 / 750 1150 / 1150 1700 / 1700 75 / 75 Balance 1309 / 1309 1696 / 1696 746 / 746 925 / 925 Weight (kg) 54 kg Objective General Appearance: positive No acute distress, Alert and Other (opens her eyes when I put the HOB up. ) Eyes Bilateral: positive No scleral icterus ENT: positive ENT inspection nml Neck: positive Nml inspection Respiratory: positive Chest non-tender and Rales (left occasional) Cardiovascular: positive Systolic murmur (Loud holosystolic murmur) Abdomen: positive Non-tender Rectal: positive Other (I placed the pure wick today, continues with serous drainage from the perineum. 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 ) Neurologic/Psychiatric: positive Other (moans when she is turned for purewick placement. opens eyes to voice, non verbal, does not follow commands) Lab Results 10/30/24 05:12 10/30/24 05:12 Other Labs: Lab Results x24hrs 10/30/24 10/30/24 10/29/24 Range/Units 05:12 05:12 20:53 WBC 9.5 (4.8-10.8) x10^3/uL RBC 3.80 L (4.20-5.40) 10^6/uL Hgb 11.2 L (12.0-16.0) g/dL Hct 37.0 (37.0-47.0) % MCV 97.4 (81.0-99.0) fL MCH 29.5 (27.0-31.0) pg MCHC 30.3 L (32.0-36.0) g/dL RDW 21.2 H (12.0-15.0) % Plt Count 295 (130-450) 10^3/uL MPV 9.8 (7.9-10.8) fL Neut # (Auto) 7.5 H (1.5-6.6) 10^3/uL Lymph # (Auto) 0.8 L (1.5-3.5) 10^3/uL [place] # (Auto) 1.0 (0.0-1.0) 10^3/uL Eos # (Auto) 0.2 (0.0-0.7) 10^3/uL Baso # (Auto) 0.0 (0.0-0.1) 10^3/uL Absolute Nucleated RBC 0.00 x10^3/uL Nucleated RBC % 0.0 /100WBC Manual Slide Review Indicated Platelet Estimate NORMAL (130-450,000) (NORMAL) Platelet Morphology NORMAL APPEARANCE (NORMAL) RBC Morph Micro Appear 1+ OVALOCYTES 1+ ANISOCYTOSIS (NORMAL) APTT 33.4 H (24.9-33.3) secs Sodium 133 L (135-145) mmol/L Potassium 3.9 (3.5-4.5) mmol/L Chloride 104 (101-111) mmol/L Carbon Dioxide 23 (21-32) mmol/L Anion Gap 6.0 (6-13) BUN 11 (6-20) mg/dL Creatinine 0.7 (0.6-1.3) mg/dL Estimated GFR (MDRD) 79 L (>89) Glucose 110 H (74-104) mg/dL Calcium 8.0 L (8.5-10.3) mg/dL Troponin I High Sens 222.6 H* (2.3-14.8) ng/L Assessment/Plan Problem List (1) Acute cerebrovascular accident (CVA): Impression: I called telestroke neurology at [place]. I spoke with Dr. Reilly. I discussed this new diagnosis of atrial fibrillation in light of her recent left frontal CVA. Dr. Reilly stated that the CVA was moderate-sized and that she would recommend waiting 5 days to start anticoagulation as long as there is no hemorrhagic conversion at this time. She is anticoagulated on therapeutic lovenox. This is due to not swallowing. Dr. Reilly recommends 2.5 mg of Eliquis p.o. twice daily given the patient's age and size. Renal function was discussed with Dr. Reilly, it is normal. MRI resulted. no hemorrhagic conversion. She is 5 days post event, Eliquis started for a fib ASA mt'ed at that time. she is on a statin for CVA prevention as well. Then, at the time she was to start Eliquis, her troponin became elevated. Statin and eliquis held due to no po meds right now; she is unable to swallow. The majority of her issues today centered around her swallow. She has been 7 days without nutrition. She has been resistant to swallowing. Family is interested in her getting nutrition. ASSEMBLY LEADER concerned about the barriers that NG feeding tube places on working on swallow. PEG is a consideration. I discussed ramifications of PEG with the family. She is recovering from a NSTEMI. She is a high anesthesia risk d/t this and her severe . PEG is not a risk free procedure, aside from the anesthesia risk, which is significant. . this patient continues to have health events that increase her risk for invasive procedures. I asked the patient's family to meet with Palliative care, and I consulted SANDRA Mcgee, to meet with family and discuss the potential ramification of placement of permanent feeding tube. Family decided to proceed. They would like to honor their mother's wishes WRT full code/full care. I have discussed the case with Dr Duke of general surgery. She requested that most recent CT A/P images be pushed here from [facility]. We are able to see needed images on recent CT chest that was pushed from [facility]. Dr Duke will meet with patient and family to discuss PEG. Discussed case with Dr Duke and family. I have requested Dobhoff for temporary access. I will start the patient on tube feedings today, head of bed at 30degrees except for perineal care. (2) Non-STEMI (non-ST elevated myocardial infarction): Impression: Telemetry has been in and out of sinus rhythm with periods of atrial fibrillation. she showed some irregularities on her telemetry which prompted sending a troponin. This was elevated, as was repeat several hours later. She has now completed 48h of heparin gtt, which was the recommendation of cardiology. her troponin has trended down. She has a history of aortic stenosis. echocardiogram has been completed this admission and her aortic stenosis is not any worse. Cardiology at both [facility] and [facility] in [place] was consulted. The opinion of Dr. Mohr at [place] and Dr Abbe Dodge at [facility] is to heparinize the patient and start beta dedra. [facility] does not have any beds available but both facilities are willing to accept her in transfer for PCI if the family is insistent upon it. Both cardiologists make the point that coronary angiography will not change this patient's prognosis. The recommendation is to treat medically with heparin drip, follow enzymes, and treat with beta-dedra. These recommendations have been carried forth. We have scheduled metoprolol 5 mg every 6 hours, as patient is not currently taking oral medications. She has completed 48h heparinization. Laboratory Tests 10/27/24 10/27/24 10/28/24 17:04 21:31 10:04 Troponin I High Sens 575.9 H* 667.5 H* 495.5 H* 10/29/24 10/30/24 05:50 05:12 Troponin I High Sens 308.3 H* 222.6 H* (3) Atrial fibrillation with RVR: Impression: This patient was loaded with digoxin and is currently getting digoxin 250 mcg daily via IV. Should check dig level after about 6 doses. Initially for atrial fibrillation with RVR she was transferred to the intensive care unit placed on a diltiazem drip. This was then converted over to oral diltiazem, which she has not been able to take. Her rate has been controlled, and i have abdandoned that medication. in light of her STEMI,I have started metoprolol 5mg IV q6h, with holding parameters. echocardiogram, her EF is lower than our last study in 2021, but her aortic stenosis is not considerably worse. Will need out patient cardiology followup. rate lowering medications have been effective. As I transition her off heparin gtt, will start therapeutically dosed lovenox. She is not able to swallow Eliquis. (4) Hyponatremia: Impression: Her sodium dropped very suddenly 139 to 130. Her I/O are difficult to quantify given her urinary incontinence, inability to place bolton and difficulties in getting purewick to capture urine based on anatomical deformities. I stopped the D5W and started NS at 100cc/hr for maintenance fluids, Na improved to 133. Due to availability of fluids, she is currently on D5 1/2 NS at 75ml/hr. Hopefully Na will improve as well are able to give enteral feeds and medications. Laboratory Tests 10/24/24 10/25/24 10/26/24 14:47 05:05 04:34 Sodium 137 138 139 10/27/24 10/28/24 10/28/24 04:49 04:25 10:04 Sodium 139 130 L 130 L 10/29/24 10/30/24 05:50 05:12 Sodium 133 L 133 L (5) Iron deficiency: Impression: She is not currently significantly anemic. Her iron stores are low and therefore I will replete with IV iron. Ferric Fluconate 125mg given for repletion. 10/27/24 17:04 Iron 20 L TIBC 188 L % Saturation 11 L Transferrin 134 L (6) CKD (chronic kidney disease): Impression: Renal function normal. I am continuing to monitor this on a daily basis. diffcult to quantify intake and output. Purewick is not effective. She told us that she is continent of urine at home. her daughter, who is a family practice SSRS REPORT DEVELOPER tells me that she is often incontinent of urine at home. (7) Hyperkalemia: Impression: Potassium of 5.3 on admission, unclear etiology, resolved. (8) Rectal carcinoma: Impression: Stage 4. ongoing treatment. She is on palliative chemo. 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 I was able to review records from [facility]. 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 palliative loop colostomy followed by excision of the mass which included the posterior vaginal wall, then some problems with healing of the wounds and ultimately required hyperbaric tx. (9) Severe aortic stenosis: Impression: Chronic and unchanged, echocardiogram this admission confirms this. recommend outpatient cardiology followup. I have spent 52 minutes in the care of this patient today. This includes time [id number], review and ordering of diagnostic imaging and laboratory studies and consultation with other providers. Monitoring the patient's signs symptoms, evaluation of medication effectiveness and patient's response to treatment.
[2024-10-30] MEDS ORDERED: traMADol 50 MG TABLET PO PRN (20:26)
[2024-10-30] MEDS: AMITRIPTYLINE 10 MG TABLET PO SCH (21:27)
[2024-10-30] MEDS: ACETAMINOPHEN 160 MG/5 ML SUSP UDC PO SCH (21:27)
[2024-10-31] MEDS: HYDROmorphone 0.5 MG/0.5 ML SYRINGE IVP PRN (01:07)
--- NOTE | 2024-10-31 01:49 | PROVIDER PROGRESS NOTE ---
Gear Cutting Machine Set Up Operator Note Gear Cutting Machine Set Up Operator Note Gear Cutting Machine Set Up Operator Note: per rn "Supposed to start TF tonight but order doesn't specify strength. Just says Jevity. We have Jevity 1.2 stocked. Can you please specify? Also, ostomy having black liquid output that seems slightly blood tinged. just fyi" ok to use jevity 1.2 pepcid 40 mg iv x 1
[2024-10-31] MEDS: FAMOTIDINE 20 MG/2 ML VIAL IVP ONE (02:20)
--- NOTE | 2024-10-31 05:39 | PROVIDER PROGRESS NOTE ---
Crewman Main Battle Tank Note Crewman Main Battle Tank Note Crewman Main Battle Tank Note: per rn "Has 5mg IV metop ordered as a scheduled med. HR has been in the 50s this am. Last BP 136/60. No hold parameters for HR. Please give me a call on how you would like for me to proceed. Thanks!" unable to reach rn via phone lopressor stopped
[2024-10-31 05:57] LABS: BASOPHILS % (AUTO) 0.2 %; EOSINOPHILS # (AUTO) 0.2 10^3/uL (0.0-0.7); EOSINOPHILS % (AUTO) 2.2 %; HCT - HEMATOCRIT 34.8 % (37.0-47.0); HGB - HEMOGLOBIN 10.5 g/dL (12.0-16.0); LYMPHOCYTES # (AUTO) 0.6 10^3/uL (1.5-3.5); LYMPHOCYTES % (AUTO) 7.4 %; MEAN CORPUSCULAR HEMOGLOBIN 29.6 pg (27.0-31.0); MEAN CORPUSCULAR HGB CONC 30.2 g/dL (32.0-36.0); MEAN PLATELET VOLUME 9.4 fL (7.9-10.8); MONOCYTES % (AUTO) 11.4 %; NEUTROPHILS # (AUTO) 6.6 10^3/uL (1.5-6.6); NEUTROPHILS % (AUTO) 78.1 %; PLT - PLATELET COUNT 272 10^3/uL (130-450); RED BLOOD COUNT 3.55 10^6/uL (4.20-5.40); RED CELL DISTRIBUTION WIDTH 20.9 % (12.0-15.0); WHITE BLOOD COUNT 8.5 x10^3/uL (4.8-10.8)
[2024-10-31 06:02] LABS: SLIDE REVIEW? Indicated
[2024-10-31 06:20] LABS: ALBUMIN 2.4 g/dL (3.2-5.5); ALBUMIN/GLOBULIN RATIO 0.9 (1.0-2.2); BILIRUBIN,TOTAL 0.5 mg/dL (0.2-1.0); CALCIUM 8.1 mg/dL (8.5-10.3); CREATININE 0.7 mg/dL (0.6-1.3); MAGNESIUM 1.7 mg/dL (1.7-2.3); TOTAL PROTEIN 5.2 g/dL (6.4-8.9)
[2024-10-31 06:26] LABS: PLATELET ESTIMATE, MANUAL NORMAL (130-450,000) (NORMAL); PLATELET MORPHOLOGY NORMAL APPEARANCE (NORMAL)
[2024-10-31] MEDS: FAMOTIDINE 20 MG/2 ML VIAL IVP SCH (09:13)
--- NOTE | 2024-10-31 09:20 | OT Plan of Care ---
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 Initially admitted with L frontoparietal CVA, now s/p NSTEMI. Complex hx of rectal cancer requiring complicated medical management. Seen for OT re-evaluation. Met supine in bed, eyes open. L head turn and gaze preference, however improved ability to cross midline to stim and attend to therapist. Continues to present with significant deficits in speech/language within receptive and expressive areas. Continues using Y/N as attempted functional communication pt with mostly Y head nods, no appropriate use of no nods to personally relevant questions. Appears more confused with abstract thought, however will perform automatic gestures Hi, Bye, scratching face, grabbing blanket etc. A&O difficult to assess at this time but is able to respond Y to last name with appropriate attention to therapist. Follows 10% one step simple commands with heavy multisensory cues however continues to present with more automatic gestures vs volitional command following. Performed supine to sit EOB MAX AX2 with off weight to R side 2/2 rectal wound. Able to tolerate ~1-2 mins EOB sitting with noted restlessness. Attempted simple grooming and therex however pt distractable to pain and with limited command following. Currently MAX A mobility and ADLs. Overall presents with decreased cognition, motor planning, visual perceptual integration, strength, endurance, activity tolerance and ADL status. Will benefit from cont OT services during acute stay. Rec d/c to SNF pending medical stability and POC. Goals - Activities of Daily Living Improve Upper Extremity Minimal Assist Dressing to: Improve Lower Extremity Minimal Assist Dressing to: Improve Grooming/Hygiene to: Minimal Assist Improve Bathing to: Minimal Assist Improve Toileting to: Minimal Assist Plan Treatment Frequency 1x/day Duration Until discharge -Discharge Recommendations Discharge Location Assisted Facility Transport Needs at Discharge [facility]
--- NOTE | 2024-10-31 09:42 | XRAY Report ---
PROCEDURE: XR Abdomen 1 V INDICATIONS: dobhoff placement TECHNIQUE: One view of the abdomen acquired. COMPARISON: Chest x-ray 10/23/2024 and 10/30/2024 FINDINGS: Surgical changes and devices: Enteric tube tip and side port overlying the proximal gastric body. Han gical clips at the level of the inferior pubic rami Bowel: Bowel gas pattern is normal. Soft tissues: New round hyperdensity overlying the right upper quadrant, which may represent ingested material versus contrast. Visualized solid organ contours appear normal in size. Bones: No suspicious bony lesions. IMPRESSION: Enteric tube tip and side port at the proximal stomach. Further advancement by 15-20 cm recommended, if a postpyloric position is needed. Reviewed by: Fred Hernandez MD on 10/31/2024 9:40 AM PDT Approved by: Fred Hernandez MD on 10/31/2024 9:40 AM PDT Station ID: [id number]
--- NOTE | 2024-10-31 10:06 | ANESTHESIA PROCEDURE NOTE ---
Anesth Central Line Template Central Line Procedure Date: 10/31/24 Central Line Preparation: Consent Obtained Central line location: Right IJ Central line type: Triple lumen Central line catheter tip site resides: Superior vena cava (SVC)
--- NOTE | 2024-10-31 13:24 | PROVIDER PROGRESS NOTE ---
Subjective Prog Note Date Prog Note Date: 10/31/24 Subjective Pt reports feeling: No change Current Medications Current Medications Current Medications: Current Medications Generic Name Dose Route Start Last Admin Trade Name Freq PRN Reason Stop Dose Admin Acetaminophen 1,000 mg 10/30/24 22:00 10/31/24 06:32 Acetaminophen 160 Mg/5 Ml Susp Udc PO 1,000 mg TID JAYLA Administration Amitriptyline HCl 10 mg 10/30/24 21:00 10/30/24 21:27 Amitriptyline 10 Mg Tablet PO 10 mg QPM JAYLA Administration Digoxin 250 mcg 10/27/24 17:55 10/31/24 09:11 Digoxin 500 Mcg/2 Ml Amp IVP 250 mcg DAILY JAYLA Administration Enoxaparin Sodium 60 mg 10/29/24 23:00 10/31/24 11:03 Enoxaparin 60 Mg/0.6 Ml Syringe SUBQ 60 mg Q12H JAYLA Administration Famotidine 20 mg 10/31/24 09:00 10/31/24 09:13 Famotidine 20 Mg/2 Ml Vial IVP 20 mg BID JAYLA Administration Hydromorphone HCl 0.5 mg 10/28/24 11:29 10/31/24 09:31 Hydromorphone 0.5 Mg/0.5 Ml Syringe IVP 0.5 mg Q2H PRN Administration Severe Pain (Level 7-10) Dextrose/Sodium Chloride 1,000 mls @ 75 mls/hr 10/29/24 17:00 10/31/24 06:16 D5.45ns IV 75 mls/hr .[id number] JAYLA Administration Multivitamins/Minerals 1 tab 10/26/24 12:00 10/31/24 09:10 Multivitamin W/Minerals Tablet PO 1 tab DAILYWM JAYLA Administration Ondansetron HCl 4 mg 10/23/24 20:45 Ondansetron 4 Mg/2 Ml Vial IVP Q6HR PRN Nausea / Vomiting Prochlorperazine Edisylate 10 mg 10/23/24 20:45 Prochlorperazine 10 Mg/2 Ml Vial IVP Q6HR PRN Nausea / Vomiting Sodium Chloride 10 ml 10/23/24 20:45 10/27/24 07:10 Sodium Chloride Flush 0.9% 10 Ml Syringe IVP 10 ml PRN PRN Administration NEEDED PER PROVIDER ORDERS Sodium Chloride 10 ml 10/24/24 01:00 10/31/24 09:13 Sodium Chloride Flush 0.9% 10 Ml Syringe IVP 10 ml 0100,0900,1700 JAYLA Administration Tramadol HCl 50 mg 10/30/24 20:26 Tramadol 50 Mg Tablet PO Q4HR PRN Moderate Pain (Level 4-6) Zinc Oxide 113 gm 10/25/24 06:00 Cod Liver Oil/Zinc Oxide 113 Gm Tube TOP PRN PRN Skin Care Objective Vital Signs/Intake & Output Reviewed Vital Signs: Yes Vital Signs: Vital Signs x48h Temp Pulse Pulse Resp BP Pulse Ox 10/31/24 10:00 36.6 C 55 L 18 132/58 H 98 10/31/24 09:11 66 Intake & Output: Intake & Output 10/28/24 10/29/24 10/30/24 10/31/24 23:59 23:59 23:59 23:59 Intake Total 2846 / 2846 2446 / 2446 1999 / 1999 1020 / 1020 Output Total 1150 / 1150 1700 / 1700 100 / 100 285 / 285 Balance 1696 / 1696 746 / 746 1900 / 1900 735 / 735 Weight (kg) 54 kg 58 kg Objective General Appearance: positive No acute distress, Alert and Other (opens her eyes when I put the HOB up. 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 ) Neurologic/Psychiatric: positive Other (opens eyes to voice, non verbal, does not follow commands) Lab Results 10/31/24 05:35 10/31/24 05:35 Other Labs: Lab Results x24hrs 10/31/24 10/31/24 Range/Units 05:35 05:35 WBC 8.5 (4.8-10.8) x10^3/uL RBC 3.55 L (4.20-5.40) 10^6/uL Hgb 10.5 L (12.0-16.0) g/dL Hct 34.8 L (37.0-47.0) % MCV 98.0 (81.0-99.0) fL MCH 29.6 (27.0-31.0) pg MCHC 30.2 L (32.0-36.0) g/dL RDW 20.9 H (12.0-15.0) % Plt Count 272 (130-450) 10^3/uL MPV 9.4 (7.9-10.8) fL Neut # (Auto) 6.6 (1.5-6.6) 10^3/uL Lymph # (Auto) 0.6 L (1.5-3.5) 10^3/uL [place] # (Auto) 1.0 (0.0-1.0) 10^3/uL Eos # (Auto) 0.2 (0.0-0.7) 10^3/uL Baso # (Auto) 0.0 (0.0-0.1) 10^3/uL Absolute Nucleated RBC 0.00 x10^3/uL Nucleated RBC % 0.0 /100WBC Manual Slide Review Indicated Platelet Estimate NORMAL (130-450,000) (NORMAL) Platelet Morphology NORMAL APPEARANCE (NORMAL) RBC Morph Micro Appear 1+ OVALOCYTES 1+ ANISOCYTOSIS (NORMAL) Sodium 134 L (135-145) mmol/L Potassium 4.0 (3.5-4.5) mmol/L Chloride 107 (101-111) mmol/L Carbon Dioxide 24 (21-32) mmol/L Anion Gap 3.0 L (6-13) BUN 13 (6-20) mg/dL Creatinine 0.7 (0.6-1.3) mg/dL Estimated GFR (MDRD) 79 L (>89) Glucose 105 H (74-104) mg/dL Calcium 8.1 L (8.5-10.3) mg/dL Phosphorus 3.0 (2.5-5.0) mg/dL Magnesium 1.7 (1.7-2.3) mg/dL Total Bilirubin 0.5 (0.2-1.0) mg/dL AST 14 (10-42) IU/L ALT 10 (10-60) IU/L Alkaline Phosphatase 58 (42-121) IU/L Troponin I High Sens 145.9 H* (2.3-14.8) ng/L Total Protein 5.2 L (6.4-8.9) g/dL Albumin 2.4 L (3.2-5.5) g/dL Globulin 2.8 (2.1-4.2) g/dL Albumin/Globulin Ratio 0.9 L (1.0-2.2) Prealbumin 7 L (17-34) mg/dL Assessment/Plan Problem List (1) Acute cerebrovascular accident (CVA): Impression: 10/31/2024: I discussed her case with speech therapy. He recommends that we order a pured diet with honey thick liquids so that he can work on rehabbing her ability to swallow starting tomorrow. She will still need supplemental nutrition through feeding tube. Further discussion was had with general surgery, unable to place PEG tube at this location as she is just now recovering from a non-STEMI. Best course of action at this point would be for her to discharge with some form of nasogastric tube and consider outpatient placement of PEG tube. I have consulted social work and plan to have a family meeting regarding ongoing goals of care and how we can best make that happen Following is copied from prior hospitalist JORGE A note: I called telestroke neurology at [facility]. I spoke with Dr. Reilly. I discussed this new diagnosis of atrial fibrillation in light of her recent left frontal CVA. Dr. Reilly stated that the CVA was moderate-sized and that she would recommend waiting 5 days to start anticoagulation as long as there is no hemorrhagic conversion at this time. She is anticoagulated on therapeutic lovenox. This is due to not swallowing. Dr. Reilly recommends 2.5 mg of Eliquis p.o. twice daily given the patient's age and size. Renal function was discussed with Dr. Reilly, it is normal. MRI resulted. no hemorrhagic conversion. She is 5 days post event, Eliquis started for a fib ASA pr'ed at that time. she is on a statin for CVA prevention as well. Then, at the time she was to start Eliquis, her troponin became elevated. Statin and eliquis held due to no po meds right now; she is unable to swallow. The majority of her issues today centered around her swallow. She has been 7 days without nutrition. She has been resistant to swallowing. Family is interested in her getting nutrition. LAMP DEVELOPER concerned about the barriers that NG feeding tube places on working on swallow. PEG is a consideration. I discussed ramifications of PEG with the family. She is recovering from a NSTEMI. She is a high anesthesia risk d/t this and her severe . PEG is not a risk free procedure, aside from the anesthesia risk, which is significant. . this patient continues to have health events that increase her risk for invasive procedures. I asked the patient's family to meet with Palliative care, and I consulted SANDRA Mcgee, to meet with family and discuss the potential ramification of placement of permanent feeding tube. Family decided to proceed. They would like to honor their mother's wishes WRT full code/full care. I have discussed the case with Dr Duke of general surgery. She requested that most recent CT A/P images be pushed here from [facility]. We are able to see needed images on recent CT chest that was pushed from [facility]. Dr Duke will meet with patient and family to discuss PEG. Discussed case with Dr Duke and family. I have requested Dobhoff for temporary access. I will start the patient on tube feedings today, head of bed at 30degrees except for perineal care. (2) Severe aortic stenosis: Impression: Chronic and unchanged, echocardiogram this admission confirms this. recommend outpatient cardiology followup. (3) Atrial fibrillation with RVR: Impression: This patient was loaded with digoxin and is currently getting digoxin 250 mcg daily via IV. Should check dig level after about 6 doses. Initially for atrial fibrillation with RVR she was transferred to the intensive care unit placed on a diltiazem drip. This was then converted over to oral diltiazem, which she has not been able to take. Her rate has been controlled, and i have abdandoned that medication. in light of her STEMI,I have started metoprolol 5mg IV q6h, with holding parameters. echocardiogram, her EF is lower than our last study in 2021, but her aortic stenosis is not considerably worse. Will need out patient cardiology followup. rate lowering medications have been effective. As I transition her off heparin gtt, will start therapeutically dosed lovenox. She is not able to swallow Eliquis. 10/31/2024: Her rate is well-controlled on digoxin. (4) Acute kidney injury superimposed on stage 3a chronic kidney disease: Impression: Resolved (5) Non-STEMI (non-ST elevated myocardial infarction): Impression: Telemetry has been in and out of sinus rhythm with periods of atrial fibrillation. she showed some irregularities on her telemetry which prompted sending a troponin. This was elevated, as was repeat several hours later. She has now completed 48h of heparin gtt, which was the recommendation of cardiology. her troponin has trended down. She has a history of aortic stenosis. echocardiogram has been completed this admission and her aortic stenosis is not any worse. Cardiology at both [facility] and [facility] in [place] was consulted. The opinion of Dr. Mohr at [place] and Dr Abbe Dodge at [facility] is to heparinize the patient and start beta dedra. [facility] does not have any beds available but both facilities are willing to accept her in transfer for PCI if the family is insistent upon it. Both cardiologists make the point that coronary angiography will not change this patient's prognosis. The recommendation is to treat medically with heparin drip, follow enzymes, and treat with beta-dedra. These recommendations have been carried forth. We have scheduled metoprolol 5 mg every 6 hours, as patient is not currently taking oral medications. She has completed 48h heparinization. Laboratory Tests 10/27/24 10/27/24 10/28/24 17:04 21:31 10:04 Troponin I High Sens 575.9 H* 667.5 H* 495.5 H* 10/29/24 10/30/24 05:50 05:12 Troponin I High Sens 308.3 H* 222.6 H* 10/31/2024: Metoprolol scheduled has been discontinued. (6) Hyponatremia: Impression: Her sodium dropped very suddenly 139 to 130. Her I/O are difficult to quantify given her urinary incontinence, inability to place bolton and difficulties in getting purewick to capture urine based on anatomical deformities. I stopped the D5W and started NS at 100cc/hr for maintenance fluids, Na improved to 133. Due to availability of fluids, she is currently on D5 1/2 NS at 75ml/hr. Hopefully Na will improve as well are able to give enteral feeds and medications. Laboratory Tests 10/24/24 10/25/24 10/26/24 14:47 05:05 04:34 Sodium 137 138 139 10/27/24 10/28/24 10/28/24 04:49 04:25 10:04 Sodium 139 130 L 130 L 10/29/24 10/30/24 05:50 05:12 Sodium 133 L 133 L (7) Iron deficiency: Impression: She is not currently significantly anemic. Her iron stores are low and therefore I will replete with IV iron. Ferric Fluconate 125mg given for repletion. 10/27/24 17:04 Iron 20 L TIBC 188 L % Saturation 11 L Transferrin 134 L (8) CKD (chronic kidney disease): Impression: Renal function normal. I am continuing to monitor this on a daily basis. diffcult to quantify intake and output. Purewick is not effective. She told us that she is continent of urine at home. her daughter, who is a family practice TRACK INSPECTOR tells me that she is often incontinent of urine at home. (9) Hyperkalemia: Impression: Potassium of 5.3 on admission, unclear etiology, resolved. (10) Rectal carcinoma: Impression: Stage 4. ongoing treatment. She is on palliative chemo. 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 I was able to review records from [facility]. 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 palliative loop colostomy followed by excision of the mass which included the posterior vaginal wall, then some problems with healing of the wounds and ultimately required hyperbaric tx.
[2024-11-01] MEDS: hydrALAZINE INJ 20 MG/ML VIAL IVP ONE (05:04)
[2024-11-01 06:46] LABS: GLUCOSE, URINE (UA) NEGATIVE (NEGATIVE); KETONES,URINE (UA) NEGATIVE (NEGATIVE); OCCULT BLOOD,URINE LARGE (NEGATIVE); PH,URINE 6.5 PH (5.0-7.5)
[2024-11-01 06:51] LABS: BILIRUBIN,URINE COLOR INTERFERENCE (NEGATIVE); CLARITY,URINE BLOODY (CLEAR)
[2024-11-01 06:52] LABS: WBC,URINE 0-3 /HPF (0-5)
[2024-11-01 06:53] LABS: BACTERIA,URINE None Seen /HPF (None Seen); RBC,URINE TNTC /HPF (0-5); SQUAMOUS EPITHELIAL CELL,UR RARE Squamous (<= Few)
--- NOTE | 2024-11-01 07:42 | XRAY Report ---
PROCEDURE: XR Post Port Placement 1V CXR INDICATIONS: Verify Dobhoff placement. TECHNIQUE: One view of the chest was acquired. COMPARISON: Same-day radiograph FINDINGS AND IMPRESSION: Enteric tube terminates in the duodenum. Possible left lower lung opacity and/or effusion again seen. Right upper quadrant calcification is al so present. No significant changes from the preliminary report. Reviewed by: Bryon Silverman MD on 11/01/2024 7:38 AM PDT Approved by: Bryon Silverman MD on 11/01/2024 7:38 AM PDT Station ID: [id number]
--- NOTE | 2024-11-01 11:11 | PROVIDER PROGRESS NOTE ---
Current Medications Current Medications Current Medications: Current Medications Generic Name Dose Route Start Last Admin Trade Name Freq PRN Reason Stop Dose Admin Acetaminophen 1,000 mg 10/30/24 22:00 11/01/24 06:05 Acetaminophen 160 Mg/5 Ml Susp Udc PO 1,000 mg TID JAYLA Administration Amitriptyline HCl 10 mg 10/30/24 21:00 10/31/24 21:49 Amitriptyline 10 Mg Tablet PO Not Given QPM JAYLA Digoxin 250 mcg 10/27/24 17:55 11/01/24 08:47 Digoxin 500 Mcg/2 Ml Amp IVP 250 mcg DAILY JAYLA Administration Enoxaparin Sodium 60 mg 10/29/24 23:00 10/31/24 22:21 Enoxaparin 60 Mg/0.6 Ml Syringe SUBQ 60 mg Q12H JAYLA Administration Famotidine 20 mg 10/31/24 09:00 11/01/24 08:47 Famotidine 20 Mg/2 Ml Vial IVP 20 mg BID JAYLA Administration Hydromorphone HCl 0.5 mg 10/28/24 11:29 11/01/24 09:38 Hydromorphone 0.5 Mg/0.5 Ml Syringe IVP 0.5 mg Q2H PRN Administration Severe Pain (Level 7-10) Dextrose/Sodium Chloride 1,000 mls @ 75 mls/hr 10/29/24 17:00 11/01/24 09:27 D5.45ns IV Infused .[id number] [facility] Infusion Multivitamins/Minerals 1 tab 10/26/24 12:00 11/01/24 08:43 Multivitamin W/Minerals Tablet PO Not Given DAILYWM [facility] Ondansetron HCl 4 mg 10/23/24 20:45 Ondansetron 4 Mg/2 Ml Vial IVP Q6HR PRN Nausea / Vomiting Prochlorperazine Edisylate 10 mg 10/23/24 20:45 Prochlorperazine 10 Mg/2 Ml Vial IVP Q6HR PRN Nausea / Vomiting Sodium Chloride 10 ml 10/23/24 20:45 10/27/24 07:10 Sodium Chloride Flush 0.9% 10 Ml Syringe IVP 10 ml PRN PRN Administration NEEDED PER PROVIDER ORDERS Sodium Chloride 10 ml 10/24/24 01:00 11/01/24 08:48 Sodium Chloride Flush 0.9% 10 Ml Syringe IVP 10 ml 0100,0900,1700 JAYLA Administration Tramadol HCl 50 mg 10/30/24 20:26 Tramadol 50 Mg Tablet PO Q4HR PRN Moderate Pain (Level 4-6) Zinc Oxide 113 gm 10/25/24 06:00 Cod Liver Oil/Zinc Oxide 113 Gm Tube TOP PRN PRN Skin Care Objective Vital Signs/Intake & Output Vital Signs: Vital Signs x48h Temp Pulse Pulse Pulse Pulse Resp BP 11/01/24 08:47 85 11/01/24 08:18 37.0 C 85 18 11/01/24 05:04 147/61 H 11/01/24 04:54 87 11/01/24 04:07 36.6 C 40 L 18 BP Pulse Ox 11/01/24 08:47 11/01/24 08:18 134/51 H 99 11/01/24 05:04 11/01/24 04:54 150/58 H 11/01/24 04:07 186/76 H 97 Intake & Output: Intake & Output 10/29/24 10/30/24 10/31/24 11/01/24 23:59 23:59 23:59 23:59 Intake Total 2446 / 2446 1999 / 1999 2762 / 2762 1331 / 1331 Output Total 1700 / 1700 100 / 100 955 / 955 1200 / 1200 Balance 746 / 746 1900 / 1900 1807 / 1807 131 / 131 Weight (kg) 54 kg 58 kg 58 kg Lab Results 10/31/24 05:35 10/31/24 05:35 Other Labs: Lab Results x24hrs 11/01/24 11/01/24 11/01/24 Range/Units 06:15 05:54 00:01 POC Whole Bld Glucose 110 95 (70-100) mg/dL Urine Color RED/BLOODY Urine Clarity BLOODY (CLEAR) Urine pH 6.5 (5.0-7.5) PH Ur Specific [place] 1.015 (1.002-1.030) Urine Protein (NEGATIVE) mg/dL Urine Glucose (UA) NEGATIVE (NEGATIVE) mg/dL Urine Ketones NEGATIVE (NEGATIVE) mg/dL Urine Occult Blood LARGE H (NEGATIVE) Urine Nitrite (NEGATIVE) Urine Bilirubin COLOR INTERFERENCE (NEGATIVE) Urine Urobilinogen (NORMAL) E.U./dL Ur Leukocyte Esterase (NEGATIVE) Urine RBC TNTC H (0-5) /HPF Urine WBC 0-3 (0-5) /HPF Ur Squamous Epith Cells RARE Squamous (<= Few) Urine Bacteria None Seen (None Seen) /HPF Urine Culture Comments NOT INDICATED Assessment/Plan Problem List (1) Acute cerebrovascular accident (CVA): Impression: 11/01/2024: Conference with family members as described in separate ACP note. Plan of care was discussed if full aggressive treatment was still desired, including placement at an LTAC and outpatient follow-up for tube feeding, wound care, monitoring in the post NSTEMI stage. Family has made the decision to go comfort measures only and to discuss going home on hospice. I consulted hospice. I am de-escalating care, including stopping her tube feeds 10/31/2024: I discussed her case with speech therapy. He recommends that we order a pured diet with honey thick liquids so that he can work on rehabbing her ability to swallow starting tomorrow. She will still need supplemental nutrition through feeding tube. Further discussion was had with general surgery, unable to place PEG tube at this location as she is just now recovering from a non-STEMI. Best course of action at this point would be for her to discharge with some form of nasogastric tube and consider outpatient placement of PEG tube. I have consulted social work and plan to have a family meeting regarding ongoing goals of care and how we can best make that happen Following is copied from prior hospitalist JORGE A note: I called telestroke neurology at [place]. I spoke with Dr. Reilly. I discussed this new diagnosis of atrial fibrillation in light of her recent left frontal CVA. Dr. Reilly stated that the CVA was moderate-sized and that she would recommend waiting 5 days to start anticoagulation as long as there is no hemorrhagic conversion at this time. She is anticoagulated on therapeutic lovenox. This is due to not swallowing. Dr. Reilly recommends 2.5 mg of Eliquis p.o. twice daily given the patient's age and size. Renal function was discussed with Dr. Reilly, it is normal. MRI resulted. no hemorrhagic conversion. She is 5 days post event, Eliquis started for a fib ASA dc'ed at that time. she is on a statin for CVA prevention as well. Then, at the time she was to start Eliquis, her troponin became elevated. Statin and eliquis held due to no po meds right now; she is unable to swallow. The majority of her issues today centered around her swallow. She has been 7 days without nutrition. She has been resistant to swallowing. Family is interested in her getting nutrition. ACID PAINTER concerned about the barriers that NG feeding tube places on working on swallow. PEG is a consideration. I discussed ramifications of PEG with the family. She is recovering from a NSTEMI. She is a high anesthesia risk d/t this and her severe . PEG is not a risk free procedure, aside from the anesthesia risk, which is significant. . this patient continues to have health events that increase her risk for invasive procedures. I asked the patient's family to meet with Palliative care, and I consulted SANDRA Mcgee, to meet with family and discuss the potential ramification of placement of permanent feeding tube. Family decided to proceed. They would like to honor their mother's wishes WRT full code/full care. I have discussed the case with Dr Duke of general surgery. She requested that most recent CT A/P images be pushed here from [facility]. We are able to see needed images on recent CT chest that was pushed from [facility]. Dr Duke will meet with patient and family to discuss PEG. Discussed case with Dr Duke and family. I have requested [facility] for temporary access. I will start the patient on tube feedings today, head of bed at 30degrees except for perineal care. (2) Severe aortic stenosis: Impression: Chronic and unchanged, echocardiogram this admission confirms this. recommend outpatient cardiology followup. (3) Atrial fibrillation with RVR: Impression: This patient was loaded with digoxin and is currently getting digoxin 250 mcg daily via IV. Should check dig level after about 6 doses. Initially for atrial fibrillation with RVR she was transferred to the intensive care unit placed on a diltiazem drip. This was then converted over to oral diltiazem, which she has not been able to take. Her rate has been controlled, and i have abdandoned that medication. in light of her STEMI,I have started metoprolol 5mg IV q6h, with holding parameters. echocardiogram, her EF is lower than our last study in 2021, but her aortic stenosis is not considerably worse. Will need out patient cardiology followup. rate lowering medications have been effective. As I transition her off heparin gtt, will start therapeutically dosed lovenox. She is not able to swallow Eliquis. 10/31/2024: Her rate is well-controlled on digoxin. 11/01/2024: Patient is unable to swallow. She is comfort measures only now, so if her heart rate causes her to be uncomfortable we will start metoprolol pushes (4) Acute kidney injury superimposed on stage 3a chronic kidney disease: Impression: Resolved (5) Non-STEMI (non-ST elevated myocardial infarction): Impression: Telemetry has been in and out of sinus rhythm with periods of atrial fibrillation. she showed some irregularities on her telemetry which prompted sending a troponin. This was elevated, as was repeat several hours later. She has now completed 48h of heparin gtt, which was the recommendation of cardiology. her troponin has trended down. She has a history of aortic stenosis. echocardiogram has been completed this admission and her aortic stenosis is not any worse. Cardiology at both [facility] and [facility] in [place] was consulted. The opinion of Dr. Mohr at [place] and Dr Abbe Dodge at [facility] is to heparinize the patient and start beta dedra. [facility] does not have any beds available but both facilities are willing to accept her in transfer for PCI if the family is insistent upon it. Both cardiologists make the point that coronary angiography will not change this patient's prognosis. The recommendation is to treat medically with heparin drip, follow enzymes, and treat with beta-dedra. These recommendations have been carried forth. We have scheduled metoprolol 5 mg every 6 hours, as patient is not currently taking oral medications. She has completed 48h heparinization. Laboratory Tests 10/27/24 10/27/24 10/28/24 17:04 21:31 10:04 Troponin I High Sens 575.9 H* 667.5 H* 495.5 H* 10/29/24 10/30/24 05:50 05:12 Troponin I High Sens 308.3 H* 222.6 H* 10/31/2024: Metoprolol scheduled has been discontinued. (6) Hyponatremia: Impression: Her sodium dropped very suddenly 139 to 130. Her I/O are difficult to quantify given her urinary incontinence, inability to place bolton and difficulties in getting purewick to capture urine based on anatomical deformities. I stopped the D5W and started NS at 100cc/hr for maintenance fluids, Na improved to 133. Due to availability of fluids, she is currently on D5 1/2 NS at 75ml/hr. Hopefully Na will improve as well are able to give enteral feeds and medications. Laboratory Tests 10/24/24 10/25/24 10/26/24 14:47 05:05 04:34 Sodium 137 138 139 10/27/24 10/28/24 10/28/24 04:49 04:25 10:04 Sodium 139 130 L 130 L 10/29/24 10/30/24 05:50 05:12 Sodium 133 L 133 L (7) Iron deficiency: Impression: She is not currently significantly anemic. Her iron stores are low and therefore I will replete with IV iron. Ferric Fluconate 125mg given for repletion. 10/27/24 17:04 Iron 20 L TIBC 188 L % Saturation 11 L Transferrin 134 L (8) CKD (chronic kidney disease): Impression: Renal function normal. I am continuing to monitor this on a daily basis. diffcult to quantify intake and output. Purewick is not effective. She told us that she is continent of urine at home. her daughter, who is a family practice DIVISION SUPERVISOR tells me that she is often incontinent of urine at home. (9) Hyperkalemia: Impression: Potassium of 5.3 on admission, unclear etiology, resolved. (10) Rectal carcinoma: Impression: Stage 4. ongoing treatment. She is on palliative chemo. 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 [facility] 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 palliative loop colostomy followed by excision of the mass which included the posterior vaginal wall, then some problems with healing of the wounds and ultimately required hyperbaric tx. 11/01/2024: Now comfort measures only
--- NOTE | 2024-11-01 12:43 | ADVANCE CARE PLANNING NOTE ---
Advance Care Planning Planning Encounter Date: 11/01/24 Time: 11:00 Purpose: To determine CODE STATUS, placement, long-term goals of care Parties in Attendance: Patient's son, daughter, [id number]. Daughter's boyfriend. Social work, nurse Decisional Capacity of the Patient: Patient is nonverbal, not following commands Diagnosis for Encounter (1) Acute cerebrovascular accident (CVA): Summary: Left MCA infarct, possible cortical laminar necrosis on MRI 10/26/2024 (2) Non-STEMI (non-ST elevated myocardial infarction): Summary: Non-STEMI with atrial fibrillation/RVR. Troponin trended to peak and back down. No anticoagulant per neurology given risk of hemorrhagic conversion of stroke (3) Rectal carcinoma: Summary: Rectal carcinoma managed with surgery and with radiation. This is left her with extensive wounds in the perineal area Encounter Subjective/Patient's Story: 84-year-old female who has been dealing with rectal carcinoma. This was initially found in July 2017. This tumor had invaded her pelvic wall and had biopsy-proven involvement of inguinal lymph nodes. She has been of mostly independent at home, ambulating with a walker. Family states that she had cristela in life from visiting with her family including her great grandchildren. Family is in shock about her rapid decline from stroke. Objective/Medical Story: She has history of rectal carcinoma originally found in 2018 already metastasized to lymph nodes. She has been managed with surgery and with radiation which is left her with significant scarring and wounds in the perineal area. Wound care photos in chart. She was admitted to the hospital with a left MCA infarct which is left her unable to speak or follow commands. She has been evaluated by physical therapy, who suspects that she will not have any meaningful recovery. She was evaluated by speech therapy as she is unable to safely swallow. GEOTECHNICAL DEPARTMENT MANAGER suggest that he may be able to get some swallow function back, but she will not be able to maintain her own nutrition and will to be dependent on tube feedings Goals of Care: Family expressed that she had told them that she would want full aggressive treatment. They state that up until the stroke she has had a very good life. We discussed what all is happened since her stroke, including the fact that she would be a very poor surgical candidate for any kind of feeding tube or wound management. As she is currently in pain from wounds that will likely never heal and unable to speak, family requests further discussion with hospice providers so that they can optimize the time that she has left Plan: I have ordered a hospice informational visit. They plan to be here at sometime after 3 PM. I have changed her CODE STATUS to DNR, and at this point we are performing comfort measures only Additional Discussion: Additional discussion planned with hospice providers Code Status: Do Not Attempt Resuscitation Time spent on advance care plannin
[2024-11-01] MEDS ORDERED: GLYCOPYRROLATE 1 MG/5 ML VIAL SUBQ PRN (12:56)
[2024-11-01] MEDS ORDERED: CARBOXYMETHYLCELLULOSE OPHTH DROPS EACHEYE PRN (12:56)
[2024-11-01] MEDS: MORPHINE SOL 10 MG/0.5 ML ORAL SYRINGE PO PRN (18:04)
[2024-11-02 04:22] LABS: MAGNESIUM 1.6 mg/dL (1.7-2.3)
[2024-11-02 04:28] LABS: ALBUMIN 2.4 g/dL (3.2-5.5); ALBUMIN/GLOBULIN RATIO 0.8 (1.0-2.2); BILIRUBIN,TOTAL 0.4 mg/dL (0.2-1.0); CALCIUM 8.4 mg/dL (8.5-10.3); CREATININE 0.7 mg/dL (0.6-1.3); POTASSIUM 4.3 mmol/L (3.5-4.5); TOTAL PROTEIN 5.4 g/dL (6.4-8.9)
--- NOTE | 2024-11-02 17:22 | PROVIDER PROGRESS NOTE ---
Subjective Prog Note Date Prog Note Date: 11/02/24 Subjective Pt reports feeling: No change Current Medications Current Medications Current Medications: Current Medications Generic Name Dose Route Start Last Admin Trade Name Freq PRN Reason Stop Dose Admin Acetaminophen 1,000 mg 10/30/24 22:00 11/02/24 15:58 Acetaminophen 160 Mg/5 Ml Susp Udc PO Not Given TID JAYLA Atropine Sulfate 1 - 4 drops 11/01/24 12:56 Atropine 1% Ophth Drops 2 Ml SL Q2H PRN Excessive secretions Carboxymethylcellulose 1 drops 11/01/24 12:56 Carboxymethylcellulose Ophth Drops EACHEYE QID PRN Dry Eye Digoxin 250 mcg 10/27/24 17:55 11/02/24 08:32 Digoxin 500 Mcg/2 Ml Amp IVP 250 mcg DAILY JAYLA Administration Famotidine 20 mg 10/31/24 09:00 11/02/24 08:31 Famotidine 20 Mg/2 Ml Vial IVP 20 mg BID JAYLA Administration Glycopyrrolate 0.2 mg 11/01/24 12:56 Glycopyrrolate 1 Mg/5 Ml Vial SUBQ Q4H PRN Excessive secretions Hydromorphone HCl 0.5 mg 10/28/24 11:29 11/01/24 09:38 Hydromorphone 0.5 Mg/0.5 Ml Syringe IVP 0.5 mg Q2H PRN Administration Severe Pain (Level 7-10) Morphine Sulfate 10 mg 11/01/24 17:07 11/02/24 10:08 Morphine Angela 10 Mg/0.5 Ml Oral Syringe PO 10 mg Q2HR PRN Administration Moderate Pain (Level 4-6) Ondansetron HCl 4 mg 10/23/24 20:45 Ondansetron 4 Mg/2 Ml Vial IVP Q6HR PRN Nausea / Vomiting Prochlorperazine Edisylate 10 mg 10/23/24 20:45 Prochlorperazine 10 Mg/2 Ml Vial IVP Q6HR PRN Nausea / Vomiting Sodium Chloride 10 ml 10/23/24 20:45 10/27/24 07:10 Sodium Chloride Flush 0.9% 10 Ml Syringe IVP 10 ml PRN PRN Administration NEEDED PER PROVIDER ORDERS Sodium Chloride 10 ml 10/24/24 01:00 11/02/24 08:32 Sodium Chloride Flush 0.9% 10 Ml Syringe IVP 10 ml 0100,0900,1700 JAYLA Administration Zinc Oxide 113 gm 10/25/24 06:00 Cod Liver Oil/Zinc Oxide 113 Gm Tube TOP PRN PRN Skin Care Objective Vital Signs/Intake & Output Reviewed Vital Signs: Yes Vital Signs: Vital Signs x48h Temp Pulse Pulse Pulse Pulse Resp BP 11/01/24 08:47 85 11/01/24 08:18 37.0 C 85 18 11/01/24 05:04 147/61 H 11/01/24 04:54 87 11/01/24 04:07 36.6 C 40 L 18 BP Pulse Ox 11/01/24 08:47 11/01/24 08:18 134/51 H 99 11/01/24 05:04 11/01/24 04:54 150/58 H 11/01/24 04:07 186/76 H 97 Intake & Output: Intake & Output 10/30/24 10/31/24 11/01/24 11/02/24 23:59 23:59 23:59 23:59 Intake Total 1999 2762 / 2762 1826 / 1826 1593 / 1593 Output Total 100 / 100 955 / 955 2725 / 2725 1050 / 1050 Balance 1900 / 1900 1807 / 1807 -899 / -899 543 / 543 Weight (kg) 58 kg 58 kg 58 kg Objective General Appearance: positive No acute distress Eyes Bilateral: positive Normal inspection ENT: positive ENT inspection nml Neck: positive Nml inspection Cardiovascular: positive Regular rate & rhythm Abdomen: positive Non-tender Skin: positive Color nml Extremities: positive Non-tender Neurologic/Psychiatric: positive Oriented x3 Lab Results 10/31/24 05:35 11/02/24 04:00 Other Labs: Lab Results x24hrs 11/02/24 Range/Units 04:00 Sodium 134 L (135-145) mmol/L Potassium 4.3 (3.5-4.5) mmol/L Chloride 106 (101-111) mmol/L Carbon Dioxide 23 (21-32) mmol/L Anion Gap 5.0 L (6-13) BUN 14 (6-20) mg/dL Creatinine 0.7 (0.6-1.3) mg/dL Estimated GFR (MDRD) 79 L (>89) Glucose 106 H (74-104) mg/dL Calcium 8.4 L (8.5-10.3) mg/dL Phosphorus 3.0 (2.5-5.0) mg/dL Magnesium 1.6 L (1.7-2.3) mg/dL Total Bilirubin 0.4 (0.2-1.0) mg/dL AST 15 (10-42) IU/L ALT 12 (10-60) IU/L Alkaline Phosphatase 69 (42-121) IU/L Total Protein 5.4 L (6.4-8.9) g/dL Albumin 2.4 L (3.2-5.5) g/dL Globulin 3.0 (2.1-4.2) g/dL Albumin/Globulin Ratio 0.8 L (1.0-2.2) Prealbumin 7 L (17-34) mg/dL Assessment/Plan Problem List (1) Acute cerebrovascular accident (CVA): Impression: 11/02/2024: She is to be established with hospice 10 AM on Tuesday. I am de- escalating medications to match her comfort measures only status. I have discontinued her NG tube and her IV fluids. She appears to be comfortable at this time. When family is available, I will discuss POLST form with them 11/01/2024: Conference with family members as described in separate ACP note. Plan of care was discussed if full aggressive treatment was still desired, including placement at an LTAC and outpatient follow-up for tube feeding, wound care, monitoring in the post NSTEMI stage. Family has made the decision to go comfort measures only and to discuss going home on hospice. I consulted hospice. I am de-escalating care, including stopping her tube feeds 10/31/2024: I discussed her case with speech therapy. He recommends that we order a pured diet with honey thick liquids so that he can work on rehabbing her ability to swallow starting tomorrow. She will still need supplemental nutrition through feeding tube. Further discussion was had with general surgery, unable to place PEG tube at this location as she is just now recovering from a non-STEMI. Best course of action at this point would be for her to discharge with some form of nasogastric tube and consider outpatient placement of PEG tube. I have consulted social work and plan to have a family meeting regarding ongoing goals of care and how we can best make that happen Following is copied from prior hospitalist JORGE A note: I called telestroke neurology at [place]. I spoke with Dr. Reilly. I discussed this new diagnosis of atrial fibrillation in light of her recent left frontal CVA. Dr. Reilly stated that the CVA was moderate-sized and that she would recommend waiting 5 days to start anticoagulation as long as there is no hemorrhagic conversion at this time. She is anticoagulated on therapeutic lovenox. This is due to not swallowing. Dr. Reilly recommends 2.5 mg of Eliquis p.o. twice daily given the patient's age and size. Renal function was discussed with Dr. Reilly, it is normal. MRI resulted. no hemorrhagic conversion. She is 5 days post event, Eliquis started for a fib ASA mt'ed at that time. she is on a statin for CVA prevention as well. Then, at the time she was to start Eliquis, her troponin became elevated. Statin and eliquis held due to no po meds right now; she is unable to swallow. The majority of her issues today centered around her swallow. She has been 7 days without nutrition. She has been resistant to swallowing. Family is interested in her getting nutrition. [employer]OCIATE concerned about the barriers that NG feeding tube places on working on swallow. PEG is a consideration. I discussed ramifications of PEG with the family. She is recovering from a NSTEMI. She is a high anesthesia risk d/t this and her severe . PEG is not a risk free procedure, aside from the anesthesia risk, which is significant. . this patient continues to have health events that increase her risk for invasive procedures. I asked the patient's family to meet with Palliative care, and I consulted SANDRA Mcgee, to meet with family and discuss the potential ramification of placement of permanent feeding tube. Family decided to proceed. They would like to honor their mother's wishes WRT full code/full care. I have discussed the case with Dr Duke of general surgery. She requested that most recent CT A/P images be pushed here from [facility]. We are able to see needed images on recent CT chest that was pushed from [facility]. Dr Duke will meet with patient and family to discuss PEG. Discussed case with Dr Duke and family. I have requested [facility] for temporary access. I will start the patient on tube feedings today, head of bed at 30degrees except for perineal care. (2) Severe aortic stenosis: Impression: Chronic and unchanged, echocardiogram this admission confirms this. recommend outpatient cardiology followup. (3) Atrial fibrillation with RVR: Impression: This patient was loaded with digoxin and is currently getting digoxin 250 mcg daily via IV. Should check dig level after about 6 doses. Initially for atrial fibrillation with RVR she was transferred to the intensive care unit placed on a diltiazem drip. This was then converted over to oral diltiazem, which she has not been able to take. Her rate has been controlled, and i have abdandoned that medication. in light of her STEMI,I have started metoprolol 5mg IV q6h, with holding parameters. echocardiogram, her EF is lower than our last study in 2021, but her aortic stenosis is not considerably worse. Will need out patient cardiology followup. rate lowering medications have been effective. As I transition her off heparin gtt, will start therapeutically dosed lovenox. She is not able to swallow Eliquis. 10/31/2024: Her rate is well-controlled on digoxin. 11/01/2024: Patient is unable to swallow. She is comfort measures only now, so if her heart rate causes her to be uncomfortable we will start metoprolol pushes 11/02/2024: Heart rate remains stable at 86. No changes to her medication regimen. Discontinue telemetry (4) Acute kidney injury superimposed on stage 3a chronic kidney disease: Impression: Resolved (5) Non-STEMI (non-ST elevated myocardial infarction): Impression: Telemetry has been in and out of sinus rhythm with periods of atrial fibrillation. she showed some irregularities on her telemetry which prompted sending a troponin. This was elevated, as was repeat several hours later. She has now completed 48h of heparin gtt, which was the recommendation of cardiology. her troponin has trended down. She has a history of aortic stenosis. echocardiogram has been completed this admission and her aortic stenosis is not any worse. Cardiology at both [facility] and [facility] in [place] was consulted. The opinion of Dr. Mohr at [place] and Dr Abbe Dodge at [facility] is to heparinize the patient and start beta dedra. [facility] does not have any beds available but both facilities are willing to accept her in transfer for PCI if the family is insistent upon it. Both cardiologists make the point that coronary angiography will not change this patient's prognosis. The recommendation is to treat medically with heparin drip, follow enzymes, and treat with beta-dedra. These recommendations have been carried forth. We have scheduled metoprolol 5 mg every 6 hours, as patient is not currently taking oral medications. She has completed 48h heparinization. Laboratory Tests 10/27/24 10/27/24 10/28/24 17:04 21:31 10:04 Troponin I High Sens 575.9 H* 667.5 H* 495.5 H* 10/29/24 10/30/24 05:50 05:12 Troponin I High Sens 308.3 H* 222.6 H* 10/31/2024: Metoprolol scheduled has been discontinued. (6) Hyponatremia: Impression: Repleted and resolved (7) Iron deficiency: Impression: Received IV iron. Comfort measures now so no further intervention (8) CKD (chronic kidney disease): Impression: Last creatinine 0.7. Have discontinued daily lab work in keeping with her comfort measures only status (9) Hyperkalemia: Impression: Potassium of 5.3 on admission, unclear etiology, resolved. (10) Rectal carcinoma: Impression: Stage 4. ongoing treatment. She is on palliative chemo. 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 I was able [facility] 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 palliative loop colostomy followed by excision of the mass which included the posterior vaginal wall, then some problems with healing of the wounds and ultimately required hyperbaric tx. 11/01/2024: Now comfort measures only
[2024-11-02] MEDS: DEXTROSE 5%-LACTATED RINGERS 1,000 ML IV SCH (18:28)
[2024-11-03] MEDS: ATROPINE 1% OPHTH DROPS 2 ML SL PRN (09:33)
--- NOTE | 2024-11-03 11:55 | PROVIDER PROGRESS NOTE ---
Subjective Prog Note Date Prog Note Date: 11/03/24 Subjective Pt reports feeling: Worse Subjective: Patient is dwindling, much less responsive today Current Medications Current Medications Current Medications: Current Medications Generic Name Dose Route Start Last Admin Trade Name Freq PRN Reason Stop Dose Admin Acetaminophen 1,000 mg 10/30/24 22:00 11/03/24 05:28 Acetaminophen 160 Mg/5 Ml Susp Udc PO Not Given TID JAYLA Atropine Sulfate 1 - 4 drops 11/01/24 12:56 11/03/24 09:33 Atropine 1% Ophth Drops 2 Ml SL 4 drops Q2H PRN Administration Excessive secretions Carboxymethylcellulose 1 drops 11/01/24 12:56 Carboxymethylcellulose Ophth Drops EACHEYE QID PRN Dry Eye Digoxin 250 mcg 10/27/24 17:55 11/03/24 09:10 Digoxin 500 Mcg/2 Ml Amp IVP 250 mcg DAILY JAYLA Administration Famotidine 20 mg 10/31/24 09:00 11/03/24 09:10 Famotidine 20 Mg/2 Ml Vial IVP 20 mg BID JAYLA Administration Glycopyrrolate 0.2 mg 11/01/24 12:56 Glycopyrrolate 1 Mg/5 Ml Vial SUBQ Q4H PRN Excessive secretions Hydromorphone HCl 0.5 mg 10/28/24 11:29 11/03/24 09:34 Hydromorphone 0.5 Mg/0.5 Ml Syringe IVP 0.5 mg Q2H PRN Administration Severe Pain (Level 7-10) Dextrose/Lactated Ringer's 1,000 mls @ 75 mls/hr 11/02/24 18:00 11/03/24 06:37 D5lr IV 75 mls/hr .[id number] JAYLA Administration Morphine Sulfate 10 mg 11/01/24 17:07 11/03/24 11:12 Morphine Angela 10 Mg/0.5 Ml Oral Syringe PO 10 mg Q2HR PRN Administration Moderate Pain (Level 4-6) Ondansetron HCl 4 mg 10/23/24 20:45 Ondansetron 4 Mg/2 Ml Vial IVP Q6HR PRN Nausea / Vomiting Prochlorperazine Edisylate 10 mg 10/23/24 20:45 Prochlorperazine 10 Mg/2 Ml Vial IVP Q6HR PRN Nausea / Vomiting Sodium Chloride 10 ml 10/23/24 20:45 10/27/24 07:10 Sodium Chloride Flush 0.9% 10 Ml Syringe IVP 10 ml PRN PRN Administration NEEDED PER PROVIDER ORDERS Sodium Chloride 10 ml 10/24/24 01:00 11/03/24 09:11 Sodium Chloride Flush 0.9% 10 Ml Syringe IVP 10 ml 0100,0900,1700 JAYLA Administration Zinc Oxide 113 gm 10/25/24 06:00 Cod Liver Oil/Zinc Oxide 113 Gm Tube TOP PRN PRN Skin Care Objective Vital Signs/Intake & Output Reviewed Vital Signs: Yes Vital Signs: Vital Signs x48h Temp Pulse Resp BP Pulse Ox 11/03/24 08:00 36.2 C L 84 16 140/67 H 92 Intake & Output: Intake & Output 10/31/24 11/01/24 11/02/24 11/03/24 23:59 23:59 23:59 23:59 Intake Total 2762 / 2762 1826 / 1826 1914 / 1914 590 / 590 Output Total 955 / 955 2725 / 2725 1400 / 1400 750 / 750 Balance 1807 / 1807 -899 / -899 514 / 514 -160 / -160 Weight (kg) 58 kg 58 kg 58 kg 58 kg Objective General Appearance: positive No acute distress Eyes Bilateral: positive Normal inspection ENT: positive ENT inspection nml Neck: positive Nml inspection Cardiovascular: positive Regular rate & rhythm Abdomen: positive Non-tender Skin: positive Color nml Extremities: positive Non-tender Neurologic/Psychiatric: positive Other (Nonverbal. Moves extremities but not to command) Lab Results 10/31/24 05:35 11/02/24 04:00 Other Labs: Lab Results x24hrs 11/02/24 Range/Units 04:00 Sodium 134 L (135-145) mmol/L Potassium 4.3 (3.5-4.5) mmol/L Chloride 106 (101-111) mmol/L Carbon Dioxide 23 (21-32) mmol/L Anion Gap 5.0 L (6-13) BUN 14 (6-20) mg/dL Creatinine 0.7 (0.6-1.3) mg/dL Estimated GFR (MDRD) 79 L (>89) Glucose 106 H (74-104) mg/dL Calcium 8.4 L (8.5-10.3) mg/dL Phosphorus 3.0 (2.5-5.0) mg/dL Magnesium 1.6 L (1.7-2.3) mg/dL Total Bilirubin 0.4 (0.2-1.0) mg/dL AST 15 (10-42) IU/L ALT 12 (10-60) IU/L Alkaline Phosphatase 69 (42-121) IU/L Total Protein 5.4 L (6.4-8.9) g/dL Albumin 2.4 L (3.2-5.5) g/dL Globulin 3.0 (2.1-4.2) g/dL Albumin/Globulin Ratio 0.8 L (1.0-2.2) Prealbumin 7 L (17-34) mg/dL Assessment/Plan Problem List (1) Acute cerebrovascular accident (CVA): Impression: 11/03/2024: Continuing to promote comfort in this patient that will be established with hospice on Tuesday. IV fluids were restarted per family request as she is not tolerating oral intake. I am continuing comfort meds including atropine, Robinul, liquid morphine, and IV Dilaudid 11/02/2024: She is to be established with hospice 10 AM on Tuesday. I am de- escalating medications to match her comfort measures only status. I have discontinued her NG tube and her IV fluids. She appears to be comfortable at this time. When family is available, I will discuss POLST form with them 11/01/2024: Conference with family members as described in separate ACP note. Plan of care was discussed if full aggressive treatment was still desired, including placement at an LTAC and outpatient follow-up for tube feeding, wound care, monitoring in the post NSTEMI stage. Family has made the decision to go comfort measures only and to discuss going home on hospice. I consulted hospice. I am de-escalating care, including stopping her tube feeds 10/31/2024: I discussed her case with speech therapy. He recommends that we order a pured diet with honey thick liquids so that he can work on rehabbing her ability to swallow starting tomorrow. She will still need supplemental nutrition through feeding tube. Further discussion was had with general surgery, unable to place PEG tube at this location as she is just now recovering from a non-STEMI. Best course of action at this point would be for her to discharge with some form of nasogastric tube and consider outpatient placement of PEG tube. I have consulted social work and plan to have a family meeting regarding ongoing goals of care and how we can best make that happen Following is copied from prior hospitalist JORGE A note: I called telestroke neurology at [place]. I spoke with Dr. Reilly. I discussed this new diagnosis of atrial fibrillation in light of her recent left frontal CVA. Dr. Reilly stated that the CVA was moderate-sized and that she would recommend waiting 5 days to start anticoagulation as long as there is no hemorrhagic conversion at this time. She is anticoagulated on therapeutic lovenox. This is due to not swallowing. Dr. Reilly recommends 2.5 mg of Eliquis p.o. twice daily given the patient's age and size. Renal function was discussed with Dr. Reilly, it is normal. MRI resulted. no hemorrhagic conversion. She is 5 days post event, Eliquis started for a fib ASA ia'ed at that time. she is on a statin for CVA prevention as well. Then, at the time she was to start Eliquis, her troponin became elevated. Statin and eliquis held due to no po meds right now; she is unable to swallow. The majority of her issues today centered around her swallow. She has been 7 days without nutrition. She has been resistant to swallowing. Family is interested in her getting nutrition. [employer] OPERATOR concerned about the barriers that NG feeding tube places on working on swallow. PEG is a consideration. I discussed ramifications of PEG with the family. She is recovering from a NSTEMI. She is a high anesthesia risk d/t this and her severe . PEG is not a risk free procedure, aside from the anesthesia risk, which is significant. . this patient continues to have health events that increase her risk for invasive procedures. I asked the patient's family to meet with Palliative care, and I consulted SANDRA Mcgee, to meet with family and discuss the potential ramification of placement of permanent feeding tube. Family decided to proceed. They would like to honor their mother's wishes WRT full code/full care. I have discussed the case with Dr Duke of general surgery. She requested that most recent CT A/P images be pushed here from [facility]. We are able to see needed images on recent CT chest that was pushed from [facility]. Dr Duke will meet with patient and family to discuss PEG. Discussed case with Dr Duke and family. I have requested [facility] for temporary access. I will start the patient on tube feedings today, head of bed at 30degrees except for perineal care. (2) Severe aortic stenosis: Impression: Chronic and unchanged, echocardiogram this admission confirms this. recommend outpatient cardiology followup. (3) Atrial fibrillation with RVR: Impression: This patient was loaded with digoxin and is currently getting digoxin 250 mcg daily via IV. Should check dig level after about 6 doses. Initially for atrial fibrillation with RVR she was transferred to the intensive care unit placed on a diltiazem drip. This was then converted over to oral diltiazem, which she has not been able to take. Her rate has been controlled, and i have abdandoned that medication. in light of her STEMI,I have started metoprolol 5mg IV q6h, with holding parameters. echocardiogram, her EF is lower than our last study in 2021, but her aortic stenosis is not considerably worse. Will need out patient cardiology followup. rate lowering medications have been effective. As I transition her off heparin gtt, will start therapeutically dosed lovenox. She is not able to swallow Eliquis. 10/31/2024: Her rate is well-controlled on digoxin. 11/01/2024: Patient is unable to swallow. She is comfort measures only now, so if her heart rate causes her to be uncomfortable we will start metoprolol pushes 11/02/2024: Heart rate remains stable at 86. No changes to her medication regimen. Discontinue telemetry (4) Acute kidney injury superimposed on stage 3a chronic kidney disease: Impression: Resolved (5) Non-STEMI (non-ST elevated myocardial infarction): Impression: Telemetry has been in and out of sinus rhythm with periods of atrial fibrillation. she showed some irregularities on her telemetry which prompted sending a troponin. This was elevated, as was repeat several hours later. She has now completed 48h of heparin gtt, which was the recommendation of cardiology. her troponin has trended down. She has a history of aortic stenosis. echocardiogram has been completed this admission and her aortic stenosis is not any worse. Cardiology at both [facility] and [facility] in [place] was consulted. The opinion of Dr. Mohr at [place] and Dr Abbe Dodge at [facility] is to heparinize the patient and start beta dedra. [facility] does not have any beds available but both facilities are willing to accept her in transfer for PCI if the family is insistent upon it. Both cardiologists make the point that coronary angiography will not change this patient's prognosis. The recommendation is to treat medically with heparin drip, follow enzymes, and treat with beta-dedra. These recommendations have been carried forth. We have scheduled metoprolol 5 mg every 6 hours, as patient is not currently taking oral medications. She has completed 48h heparinization. Laboratory Tests 10/27/24 10/27/24 10/28/24 17:04 21:31 10:04 Troponin I High Sens 575.9 H* 667.5 H* 495.5 H* 10/29/24 10/30/24 05:50 05:12 Troponin I High Sens 308.3 H* 222.6 H* 10/31/2024: Metoprolol scheduled has been discontinued. (6) Hyponatremia: Impression: Repleted and resolved (7) Iron deficiency: Impression: Received IV iron. Comfort measures now so no further intervention (8) CKD (chronic kidney disease): Impression: Last creatinine 0.7. Have discontinued daily lab work in keeping with her comfort measures only status (9) Hyperkalemia: Impression: Potassium of 5.3 on admission, unclear etiology, resolved. (10) Rectal carcinoma: Impression: Stage 4. ongoing treatment. She is on palliative chemo. 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 I was able to review records from [facility]. 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 palliative loop colostomy followed by excision of the mass which included the posterior vaginal wall, then some problems with healing of the wounds and ultimately required hyperbaric tx. 11/01/2024: Now comfort measures only
[2024-11-03] MEDS: SCOPOLAMINE PATCH TOP SCH (14:33)
[2024-11-04 09:32] VITALS: O2SAT 91
[2024-11-04] MEDS: HALOPERIDOL 5 MG/ML VIAL IVP ONE (12:34)
--- NOTE | 2024-11-04 14:18 | PROVIDER PROGRESS NOTE ---
Subjective Prog Note Date Prog Note Date: 11/04/24 Subjective Pt reports feeling: Worse Current Medications Current Medications Current Medications: Current Medications Generic Name Dose Route Start Last Admin Trade Name Freq PRN Reason Stop Dose Admin Acetaminophen 1,000 mg 10/30/24 22:00 11/04/24 13:57 Acetaminophen 160 Mg/5 Ml Susp Udc PO Not Given TID JAYLA Atropine Sulfate 1 - 4 drops 11/01/24 12:56 11/03/24 09:33 Atropine 1% Ophth Drops 2 Ml SL 4 drops Q2H PRN Administration Excessive secretions Carboxymethylcellulose 1 drops 11/01/24 12:56 Carboxymethylcellulose Ophth Drops EACHEYE QID PRN Dry Eye Digoxin 250 mcg 10/27/24 17:55 11/04/24 07:53 Digoxin 500 Mcg/2 Ml Amp IVP 250 mcg DAILY JAYLA Administration Famotidine 20 mg 10/31/24 09:00 11/04/24 08:01 Famotidine 20 Mg/2 Ml Vial IVP 20 mg BID JAYLA Administration Glycopyrrolate 0.2 mg 11/01/24 12:56 Glycopyrrolate 1 Mg/5 Ml Vial SUBQ Q4H PRN Excessive secretions Hydromorphone HCl 0.5 mg 10/28/24 11:29 11/04/24 10:58 Hydromorphone 0.5 Mg/0.5 Ml Syringe IVP 0.5 mg Q2H PRN Administration Severe Pain (Level 7-10) Morphine Sulfate 10 mg 11/01/24 17:07 11/04/24 12:01 Morphine Angela 10 Mg/0.5 Ml Oral Syringe PO 10 mg Q2HR PRN Administration Moderate Pain (Level 4-6) Ondansetron HCl 4 mg 10/23/24 20:45 Ondansetron 4 Mg/2 Ml Vial IVP Q6HR PRN Nausea / Vomiting Prochlorperazine Edisylate 10 mg 10/23/24 20:45 Prochlorperazine 10 Mg/2 Ml Vial IVP Q6HR PRN Nausea / Vomiting Scopolamine HBr 1 patch 11/03/24 14:00 11/03/24 14:33 Scopolamine Patch TOP 1 patch Q3D JAYLA Administration Sodium Chloride 10 ml 10/23/24 20:45 11/03/24 20:45 Sodium Chloride Flush 0.9% 10 Ml Syringe IVP 10 ml PRN PRN Administration NEEDED PER PROVIDER ORDERS Sodium Chloride 10 ml 10/24/24 01:00 11/04/24 08:07 Sodium Chloride Flush 0.9% 10 Ml Syringe IVP 10 ml 0100,0900,1700 JAYLA Administration Zinc Oxide 113 gm 10/25/24 06:00 Cod Liver Oil/Zinc Oxide 113 Gm Tube TOP PRN PRN Skin Care Objective Vital Signs/Intake & Output Reviewed Vital Signs: Yes Vital Signs: Vital Signs x48h Temp Pulse Pulse Resp BP Pulse Ox 11/04/24 08:00 36.4 C L 80 16 138/66 H 91 L 11/04/24 07:53 84 Intake & Output: Intake & Output 11/01/24 11/02/24 11/03/24 11/04/24 23:59 23:59 23:59 23:59 Intake Total 1826 / 1826 1914 / 1914 1278 / 1278 Output Total 2725 / 2725 1400 / 1400 1100 / 1100 180 / 180 Balance -899 / -899 514 / 514 178 / 178 -180 / -180 Weight (kg) 58 kg 58 kg 58 kg 57.8 kg Objective General Appearance: positive No acute distress Eyes Bilateral: positive Normal inspection ENT: positive ENT inspection nml Neck: positive Nml inspection Cardiovascular: positive Regular rate & rhythm Abdomen: positive Non-tender Skin: positive Color nml Extremities: positive Non-tender Neurologic/Psychiatric: positive Other (Nonverbal. Moves extremities but not to command) Lab Results 10/31/24 05:35 11/02/24 04:00 Other Labs: Lab Results x24hrs 11/02/24 Range/Units 04:00 Sodium 134 L (135-145) mmol/L Potassium 4.3 (3.5-4.5) mmol/L Chloride 106 (101-111) mmol/L Carbon Dioxide 23 (21-32) mmol/L Anion Gap 5.0 L (6-13) BUN 14 (6-20) mg/dL Creatinine 0.7 (0.6-1.3) mg/dL Estimated GFR (MDRD) 79 L (>89) Glucose 106 H (74-104) mg/dL Calcium 8.4 L (8.5-10.3) mg/dL Phosphorus 3.0 (2.5-5.0) mg/dL Magnesium 1.6 L (1.7-2.3) mg/dL Total Bilirubin 0.4 (0.2-1.0) mg/dL AST 15 (10-42) IU/L ALT 12 (10-60) IU/L Alkaline Phosphatase 69 (42-121) IU/L Total Protein 5.4 L (6.4-8.9) g/dL Albumin 2.4 L (3.2-5.5) g/dL Globulin 3.0 (2.1-4.2) g/dL Albumin/Globulin Ratio 0.8 L (1.0-2.2) Prealbumin 7 L (17-34) mg/dL Assessment/Plan Problem List (1) Acute cerebrovascular accident (CVA): Impression: 11/04/2024: She appears to be agitated today. She is moaning almost constantly and spite of multimodal pain management. I have added IV Haldol for agitation. Plan to discharge early tomorrow morning so that she can establish herself with hospice at 10 AM 11/03/2024: Continuing to promote comfort in this patient that will be established with hospice on Tuesday. IV fluids were restarted per family request as she is not tolerating oral intake. I am continuing comfort meds including atropine, Robinul, liquid morphine, and IV Dilaudid 11/02/2024: She is to be established with hospice 10 AM on Tuesday. I am de- escalating medications to match her comfort measures only status. I have discontinued her NG tube and her IV fluids. She appears to be comfortable at this time. When family is available, I will discuss POLST form with them 11/01/2024: Conference with family members as described in separate ACP note. Plan of care was discussed if full aggressive treatment was still desired, including placement at an LTAC and outpatient follow-up for tube feeding, wound care, monitoring in the post NSTEMI stage. Family has made the decision to go comfort measures only and to discuss going home on hospice. I consulted hospice. I am de-escalating care, including stopping her tube feeds 10/31/2024: I discussed her case with speech therapy. He recommends that we order a pured diet with honey thick liquids so that he can work on rehabbing her ability to swallow starting tomorrow. She will still need supplemental nutrition through feeding tube. Further discussion was had with general surgery, unable to place PEG tube at this location as she is just now recovering from a non-STEMI. Best course of action at this point would be for her to discharge with some form of nasogastric tube and consider outpatient placement of PEG tube. I have consulted social work and plan to have a family meeting regarding ongoing goals of care and how we can best make that happen Following is copied from prior hospitalist JORGE A note: I called telestroke neurology at [place]. I spoke with Dr. Reilly. I discussed this new diagnosis of atrial fibrillation in light of her recent left frontal CVA. Dr. Reilly stated that the CVA was moderate-sized and that she would recommend waiting 5 days to start anticoagulation as long as there is no hemorrhagic conversion at this time. She is anticoagulated on therapeutic lovenox. This is due to not swallowing. Dr. Reilly recommends 2.5 mg of Eliquis p.o. twice daily given the patient's age and size. Renal function was discussed with Dr. Reilly, it is normal. MRI resulted. no hemorrhagic conversion. She is 5 days post event, Eliquis started for a fib ASA ri'ed at that time. she is on a statin for CVA prevention as well. Then, at the time she was to start Eliquis, her troponin became elevated. Statin and eliquis held due to no po meds right now; she is unable to swallow. The majority of her issues today centered around her swallow. She has been 7 days without nutrition. She has been resistant to swallowing. Family is interested in her getting nutrition. [employer] WORKER concerned about the barriers that NG feeding tube places on working on swallow. PEG is a consideration. I discussed ramifications of PEG with the family. She is recovering from a NSTEMI. She is a high anesthesia risk d/t this and her severe . PEG is not a risk free procedure, aside from the anesthesia risk, which is significant. . this patient continues to have health events that increase her risk for invasive procedures. I asked the patient's family to meet with Palliative care, and I consulted SANDRA Mcgee, to meet with family and discuss the potential ramification of placement of permanent feeding tube. Family decided to proceed. They would like to honor their mother's wishes WRT full code/full care. I have discussed the case with Dr Duke of general surgery. She requested that most recent CT A/P images be pushed here from [facility]. We are able to see needed images on recent CT chest that was pushed from [facility]. Dr Duke will meet with patient and family to discuss PEG. Discussed case with Dr Duke and family. I have requested [facility] for temporary access. I will start the patient on tube feedings today, head of bed at 30degrees except for perineal care. (2) Severe aortic stenosis: Impression: Chronic and unchanged, echocardiogram this admission confirms this. recommend outpatient cardiology followup. (3) Atrial fibrillation with RVR: Impression: This patient was loaded with digoxin and is currently getting digoxin 250 mcg daily via IV. Should check dig level after about 6 doses. Initially for atrial fibrillation with RVR she was transferred to the intensive care unit placed on a diltiazem drip. This was then converted over to oral diltiazem, which she has not been able to take. Her rate has been controlled, and i have abdandoned that medication. in light of her STEMI,I have started metoprolol 5mg IV q6h, with holding parameters. echocardiogram, her EF is lower than our last study in 2021, but her aortic stenosis is not considerably worse. Will need out patient cardiology followup. rate lowering medications have been effective. As I transition her off heparin gtt, will start therapeutically dosed lovenox. She is not able to swallow Eliquis. 10/31/2024: Her rate is well-controlled on digoxin. 11/01/2024: Patient is unable to swallow. She is comfort measures only now, so if her heart rate causes her to be uncomfortable we will start metoprolol pushes 11/02/2024: Heart rate remains stable at 86. No changes to her medication regimen. Discontinue telemetry (4) Acute kidney injury superimposed on stage 3a chronic kidney disease: Impression: Resolved (5) Non-STEMI (non-ST elevated myocardial infarction): Impression: Telemetry has been in and out of sinus rhythm with periods of atrial fibrillation. she showed some irregularities on her telemetry which prompted sending a troponin. This was elevated, as was repeat several hours later. She has now completed 48h of heparin gtt, which was the recommendation of cardiology. her troponin has trended down. She has a history of aortic stenosis. echocardiogram has been completed this admission and her aortic stenosis is not any worse. Cardiology at both [facility] and [facility] in [place] was consulted. The opinion of Dr. Mohr at [place] and Dr Abbe Dodge at [facility] is to heparinize the patient and start beta dedra. [facility] does not have any beds available but both facilities are willing to accept her in transfer for PCI if the family is insistent upon it. Both cardiologists make the point that coronary angiography will not change this patient's prognosis. The recommendation is to treat medically with heparin drip, follow enzymes, and treat with beta-dedra. These recommendations have been carried forth. We have scheduled metoprolol 5 mg every 6 hours, as patient is not currently taking oral medications. She has completed 48h heparinization. Laboratory Tests 10/27/24 10/27/24 10/28/24 17:04 21:31 10:04 Troponin I High Sens 575.9 H* 667.5 H* 495.5 H* 10/29/24 10/30/24 05:50 05:12 Troponin I High Sens 308.3 H* 222.6 H* 10/31/2024: Metoprolol scheduled has been discontinued. (6) Hyponatremia: Impression: Repleted and resolved (7) Iron deficiency: Impression: Received IV iron. Comfort measures now so no further intervention (8) CKD (chronic kidney disease): Impression: Last creatinine 0.7. Have discontinued daily lab work in keeping with her comfort measures only status (9) Hyperkalemia: Impression: Potassium of 5.3 on admission, unclear etiology, resolved. (10) Rectal carcinoma: Impression: Stage 4. ongoing treatment. She is on palliative chemo. 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 I was able to review records from [facility]. 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 palliative loop colostomy followed by excision of the mass which included the posterior vaginal wall, then some problems with healing of the wounds and ultimately required hyperbaric tx. 11/01/2024: Now comfort measures only
[2024-11-05 08:40] VITALS: BP 160/69; TEMP 99.3
--- NOTE | 2024-11-05 15:16 | Discharge Summary ---
Discharge Summary Admit Date: 10/23/24 Discharge Date: 11/05/24 Discharging Provider: Yaya Britt NP Primary Care Provider: Natalie Valdez Code Status: Do Not Attempt Resuscitation DIAGNOSES Admission Diagnoses: Acute CVA CKD Rectal carcinoma Discharge Diagnoses with Status of Each Condition: Acute CVADC on hospice NSTEMIcompleted Atrial fibrillation with RVRrate controlled without medication Hyponatremiaresolved Iron deficiencydischarging on hospice CKDhospice Hyperkalemiaresolved Rectal carcinomahospice Severe aortic stenosishospice HPI History of Present Illness: 84-year-old female PMH rectal carcinoma with colectomy and colostomy presented to the ER with altered mentation. She had a fall at home, and was brought in by EMS. Last known well was around 6:00 this morning. She was experiencing right sided weakness, facial droop, severe expressive aphasia In the ER, head CT was performed which showed concern for acute infarct of the left frontal lobe. She has a contrast allergy so after discussion with neurology decision was made to have her undergo carotid Doppler which shows less than 50% stenosis bilaterally. Case was discussed with neurology and with interventional radiology regarding transfer for intervention and it was decided that she was outside any therapeutic window. Hospitalist was contacted for admission for acute CVA HOSPITAL COURSE Hospital Course: She was brought into the hospital and evaluated by PT/OT who noted she had low rehab potential. MRI confirmed MCA stroke. While inpatient, she went into A- fib RVR and had a non-STEMI. She was medically managed for all of the above and fed by NG tube given severe dysphagia until decision was made to make her comfort measures only and discharged on hospice. She discharged this morning so that she could be established with hospice at 10 AM ALLERGIES Allergies Allergy/AdvReac Type Severity Reaction Status Date / Time iodine Allergy Severe Anaphylaxis Verified 10/23/24 14:07 latex Allergy Unknown Verified 10/23/24 14:07 prednisone AdvReac Mild Emesis Verified 10/23/24 14:07 MEDICATIONS Ambulatory Orders Medication Instructions Recorded Confirmed bisacodyl 10 mg rectal suppository 10 mg NJ DAILY PRN Constipation #3 11/02/24 (Dulcolax (bisacodyl)) ea lorazepam 0.5 mg tablet (Ativan) 0.5 mg PO Q6H PRN Anxiety #10 tabs 11/02/24 morphine concentrate 100 mg/5 mL 5 mg (0.25 mL) PO Q4H PRN pain or 11/02/24 (20 mg/mL) oral solution breathlessness #30 mL olanzapine 5 mg disintegrating 5 mg PO DAILY PRN Agitation, 11/02/24 tablet (Zyprexa Zydis) nausea and vomiting #10 tabs sennosides 8.6 mg tablet (senna) 8.6 mg PO BID PRN Constipation #10 11/02/24 tabs scopolamine base 1 mg over 3 days 1 patch topical Q3D #10 ea 11/05/24 transdermal patch PHYSICAL EXAM AT DISCHARGE Vital Signs: Vital Signs x48h Temp Pulse Pulse Resp BP 11/05/24 08:13 89 11/05/24 08:00 37.4 C 87 22 160/69 H General Appearance: positive Lethargic Eyes Bilateral: positive Normal inspection ENT: positive ENT inspection nml Neck: positive Nml inspection Respiratory: positive Chest non-tender Cardiovascular: positive Regular rate & rhythm Peripheral Pulses: positive 2+ Abdomen: positive No distention Back: positive Nml inspection Skin: positive Color nml Neurologic/Psychiatric: positive Other (Obtunded) LABS 10/31/24 05:35 11/02/24 04:00 FOLLOW UP Follow Up: With hospice TIME SPENT Time Spent in Discharge (Minutes): 40 Discharge Plan Discharge Patient Disposition: 50 Hospice/Home DC/Xfer Condition: Stable Medically Cleared Date:: 10/26/24 Prescriptions: New sennosides [senna] 8.6 mg Tablet 8.6 mg PO BID PRN (Reason: Constipation) Qty: 10 0RF Rx Instructions: Take one tablet, by mouth, twice a day as needed for constipation. morphine concentrate 100 mg/5 mL (20 mg/mL) Solution 5 mg PO Q4H PRN (Reason: pain or breathlessness) Qty: 30 0RF Rx Instructions: Take 0.25 ml (equal to 5 mg) by mouth, or under the tongue, every 4 hours as needed for moderate to severe pain. lorazepam [Ativan] 0.5 mg Tablet 0.5 mg PO Q6H PRN (Reason: Anxiety) Qty: 10 0RF Rx Instructions: Take one tablet, by mouth, every 6 hours as needed for anxiety. bisacodyl [Dulcolax (bisacodyl)] 10 mg Suppository 10 mg NJ DAILY PRN (Reason: Constipation) Qty: 3 0RF Rx Instructions: Unwrap and insert one suppository rectally daily, as needed for constipation. olanzapine [Zyprexa Zydis] 5 mg Tablet,Disintegrating 5 mg PO DAILY PRN (Reason: Agitation, nausea and vomiting) Qty: 10 0RF Rx Instructions: Dissolve one tablet, in mouth, twice daily as needed for agitation or nausea and/or vomiting. scopolamine base 1 mg over 3 days Patch 3 Day 1 patch topical Q3D Qty: 10 0RF Discontinued capecitabine [Xeloda] 500 MG tablet 1,000 mg PO UD Rx Instructions: 2 tablets daily for 14 days as directed, 2 weeks on / 2 weeks off losartan 25 mg tablet 25 mg PO DAILY PM amitriptyline 10 mg tablet 10 mg PO .qhs pantoprazole 40 mg tablet,delayed release (DR/EC) 40 mg PO QDAY tramadol 50 mg tablet 50 mg PO QDAY PRN (Reason: pain) Rx Instructions: for moderate pain (4-6) or severe pain (7-10) for up to 5 days. acetaminophen 500 mg tablet 500 mg PO Q6H PRN (Reason: fever or pain) multivitamin [Daily Multi-Vitamin] Tablet 1 tab PO QDAY Activity Restrictions: No Restrictions Diet: Regular Health Concerns: You came into the hospital with new onset stroke. You were evaluated by PT/OT/Speech therapy. MRI revealed Left MCA stroke. There was no improvement despite multiple rehab therapies and supplemental nutrition. After discussion with family, we are sending you home with hospice to spend your remaining days at home with your family as comfortably as possible. I've ordered some medicines to make you comfortable, including morphine which should be taken as needed for air hunger or pain. For agitation, I've ordered zyprexa. please continue the atropine drops and the scopolamine patch to reduce upper airway secretions Print Language: Bahamian Patient Instructions: Hospice, Hospice Nears Follow-up Care: Kajal Marin PA-C [Primary Care Provider] -
== END 2024-11-05 09:25 | disposition hospice, home (50) | DRG 64 ==
LOC: ED 13:23 → MS3 19:54 → ICU 10-25 11:36 → MS2 10-27 15:17
PROVIDERS: ADMIT Nurse Practitioner Acute Care; ATTEND Nurse Practitioner Acute Care